=== PATIENT | male | born 1960 | race Caucasian/White ===

== ENCOUNTER 2019-10-18 05:37 | Outpatient (RCR) | payer OTHER, SELFPAY | END 2019-10-25 00:01 | LOC: ONCRAD 05:37 | PROVIDERS: Family Provider Internal Medicine; Visit Provider Internal Medicine Hematology & Oncology | DX: Z51.12 Encounter for antineoplastic immunotherapy (principal); C34.92 Malignant neoplasm of unspecified part of left bronchus or lung; C78.7 Secondary malignant neoplasm of liver and intrahepatic bile duct; C77.1 Secondary and unspecified malignant neoplasm of intrathoracic lymph nodes; C78.01 Secondary malignant neoplasm of right lung; G47.33 Obstructive sleep apnea (adult) (pediatric); J43.9 Emphysema, unspecified; I25.10 Atherosclerotic heart disease of native coronary artery without angina pectoris; K42.9 Umbilical hernia without obstruction or gangrene; F10.21 Alcohol dependence, in remission; T44.7X6A Underdosing of beta-adrenoreceptor antagonists, initial encounter; Z91.128 Patient's intentional underdosing of medication regimen for other reason; Z79.51 Long term (current) use of inhaled steroids; Z87.01 Personal history of pneumonia (recurrent); Z92.3 Personal history of irradiation | CPT/HCPCS: 36591 ×2; 80053 ×2; 84439; 84443 ×2; 85025 ×2; 96413 ×2; 99214 ×2; J1642 ×4; J7050 ×2; J9271 ×2 ==

== ENCOUNTER 2019-11-08 05:38 | Outpatient (RCR) | payer OTHER, SELFPAY ==
[2019-11-07 09:33] LABS: Basophils % 0.5 %; Eosinophils # 0.3 10^3/uL (0.0-0.8); Eosinophils % 3.9 %; Hematocrit 41.7 % (42.0-52.0); Hemoglobin 14.1 g/dL (11.7-16.6); Lymphocytes # 1.4 10^3/uL (0.8-4.8); Lymphocytes % 16.5 %; Mean Corpuscular HGB Conc 33.8 g/dL (30.0-36.0); Mean Corpuscular Hemoglobin 33.3 pg (28.0-34.0); Mean Corpuscular Volume 98.3 fL (80-94); Mean Platelet Volume 8.8 fL (7.4-10.4); Monocytes # 0.8 10^3/uL (0.2-0.9); Monocytes % 8.9 %; Neutrophils # 5.9 10^3/uL (1.8-7.7); Neutrophils % 69.4 %; Nucleated Red Blood Cells % 0 %; Platelet Count 205 10^3/cmm (130-400); Red Blood Count 4.24 10^6/uL (4.1-5.3); Red Cell Distribution Width 12.5 % (12.1-15.1); White Blood Count 8.5 10^3/uL (4.0-10.0)
[2019-11-07 09:57] LABS: Alanine Aminotransferase 14 U/L (0-41); Alkaline Phosphatase 108 IU/L (40-130); Anion Gap 15.1 (5-19); Aspartate Amino Transferase 15 U/L (0-40); Blood Urea Nitrogen 7 mg/dL (6-20); Calcium 10.2 mg/Dl (8.6-10.0); Carbon Dioxide 26 mmol/L (22-29); Chloride 98 mmol/L (98-107); Globulin 3.3 g/dL (1.3-4.6); Glomerular Filtration Rate 138.4 mL/min (90-130); Glucose 104 mg/dL (74-109); Potassium 4.1 mmol/L (3.5-5.1); Sodium 135 mmol/L (136-145); Thyroid Stimulating Hormone 5.87 uIU/mL (0.27-4.20); Total Bilirubin 0.3 mg/dL (0.15-1.2); Total Protein 7.3 g/dL (6.6-8.7)
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
== END 2019-11-08 23:59 | disposition home or self-care (01) ==
LOC: ONCMED 05:38
PROVIDERS: Internal Medicine Hematology & Oncology; Family Provider Internal Medicine; Visit Provider Nurse Practitioner
DX: Z51.12 Encounter for antineoplastic immunotherapy (principal); C78.7 Secondary malignant neoplasm of liver and intrahepatic bile duct; C78.02 Secondary malignant neoplasm of left lung; C34.81 Malignant neoplasm of overlapping sites of right bronchus and lung; D69.6 Thrombocytopenia, unspecified; G47.33 Obstructive sleep apnea (adult) (pediatric); J43.9 Emphysema, unspecified; I25.10 Atherosclerotic heart disease of native coronary artery without angina pectoris; E78.5 Hyperlipidemia, unspecified; K42.9 Umbilical hernia without obstruction or gangrene; F17.210 Nicotine dependence, cigarettes, uncomplicated; E03.8 Other specified hypothyroidism; F10.21 Alcohol dependence, in remission; Z79.51 Long term (current) use of inhaled steroids; Z79.891 Long term (current) use of opiate analgesic; Z92.3 Personal history of irradiation; Z87.01 Personal history of pneumonia (recurrent); Z92.21 Personal history of antineoplastic chemotherapy
CPT/HCPCS: 36415; 36591; 80053; 84443; 85025; 96413; 99214; J7050; J9271

== ENCOUNTER 2019-11-11 09:32 | Inpatient (IN) | payer OTHER, SELFPAY ==
[2019-11-11] VITALS (18 sets, daily range): BP systolic 101–130; BP diastolic 59–84; PULSE 78–106; RESP 16–20; TEMP 36.7–38.1; O2SAT 92–96; BMI 31.0
--- NOTE | 2019-11-11 09:41 | ED_ITS ---
Entered by Beatrice Paz, acting as scribe for HPI - Fever General: Chief Complaint: Fever Stated Complaint: Fever Time Seen by Provider: 11/11/19 09:42 Source: patient and family Mode of arrival: ambulatory Limitations: no limitations History of Present Illness: HPI Narrative: 59 yo male presents with fever and cough. per pt this started 2 days ago and worsened today. pt has had shortness of breath and cough. pt states his spouse had the flu 1 month ago. pt had a Zpac that was left over 2 months ago that he started taking 2 days ago. pt has a hx of pneumonia and lung cancer. pt states this is worsened with a cough. pt has had chest tenderness with coughing. pt denies any other symptoms at this time. MD elicited complaint: fever Pertinent past history: other (lung cancer) Onset (ago): hour(s) Context: sick contacts (spouse had flu 1 month ago), recent antibiotic use (Zpac) and on chemotherapy Exacerbating factors: nothing Relieving factors: nothing Associated symptoms: Reports chest pain, cough and short of breath; Deny back/flank pain, confusion, diarrhea, dysuria, extremity pain, headache(s), nasal congestion, nausea or vomiting Treatments prior to arrival fever: other (Zpac 2 days ago) Review of Systems Eyes: Denies: change in vision or blurry vision ENMT: Denies: throat pain, oral sores/lesions, dental pain, nasal discharge or nasal congestion Card: Reports: chest pain Resp: Denies: wheezing GI: Denies: nausea, vomiting, vomiting blood, coffee grounds in vomit, difficulty swallowing, heartburn/indigestion, diarrhea, constipation, cramping, blood in stool or black tarry stool : Denies: flank pain, difficulty urinating, painful urination, urinary frequency, urinary urgency, urinary incontinence or blood in urine Musc: Denies: neck pain, back pain, extremity pain, extremity swelling, joint pain or joint swelling Skin/Breast: Denies: rash, itching or redness Neuro: Denies: headache, numbness in extremities, weakness in extremities, changes in sensation, lack of coordination, difficulty walking, frequent falls, dizziness, vertigo or confusion Psych: Denies: anxiety, depression, loss of interest, visual hallucinations, auditory hallucinations, suicidal ideation or homicidal ideation Endo: Denies: excessive urination, excessive thirst, tired all the time or cold intolerance Ricardo/Lymph: Denies: easy bruising, easy bleeding, petechiae, enlarged lymph nodes or tender lymph nodes PFSH ED PFSH: Statuses (acute, chronic, etc) shown below reflect problem list status as previously entered and may not be historically accurate Medical History (Updated 11/12/19 @ 14:18 by Dorian Palmer DO) Anxiety (Acute) COPD (chronic obstructive pulmonary disease) (Acute) Coronary disease (Acute) Hypertension (Acute) Neuropathy, peripheral (Acute) Sleep apnea, obstructive (Acute) Squamous cell carcinoma of left lung (Acute) Thrombocytopenia (Acute) Tobacco dependency (Acute) Umbilical hernia (Acute) Surgical History (Updated 11/11/19 @ 16:44 by Davin Gu MD) History of coronary artery stent placement (Acute) Port-A-Cath in place (Acute) S/P bronchoscopy with biopsy (Acute) Family History (Updated 11/11/19 @ 16:44 by Davin Gu MD) Mother Cancer Colon cancer Social History (Updated 11/11/19 @ 16:45 by Davin Gu MD) Smoking and tobacco status: current every day smoker Alcohol intake: never Substance/Drug Use: never Physical Exam Const: COMMON NORMALS: average body habitus, oriented x3 and alert GENERAL APPEARANCE: cooperative, comfortable, well kempt and well developed NUTRITIONAL APPEARANCE: obese ORIENTATION/CONSCIOUSNESS: Yes awake, Yes oriented to person and Yes oriented to place HENMT: COMMON NORMALS: normocephalic, head/scalp atraumatic, EAC's normal, TM's normal bilaterally, external nose normal, moist oral mucous membranes and oropharynx normal HEAD & SCALP: normocephalic and atraumatic NOSE: external nose normal EXTERNAL AUDITORY CANAL: EAC's normal TYMPANIC MEMBRANE: TM's normal bilaterally MOUTH: oral and palatal mucosa normal, lip normal and tongue normal THROAT: posterior oropharynx normal and tonsils normal Eye: COMMON NORMALS: PERRL, EOMs intact bilaterally, conjunctivae normal and no scleral icterus CONJUNCTIVA: Yes conjunctivae normal PUPIL: Yes PERRL Neck/C-Spine: COMMON NORMALS: full ROM, no lymphadenopathy, supple, no meningeal signs and thyroid normal THYROID: thyroid normal and asymmetrical Lymph: LYMPHATIC: no lymphadenopathy noted Resp: COMMON NORMALS: normal respiratory effort, no retractions and no use of accessory muscles; negative for clear to auscultation bilaterally AUSCULTATION: not clear to auscultation bilaterally Cardio: COMMON NORMALS: regular rate and regular rhythm RATE: regular rate RHYTHM: regular rhythm HEART SOUNDS: no murmurs GI: COMMON NORMALS: normal to inspection, nondistended, normoactive bowel sounds, soft to palpation and no hepatosplenomegaly PALPATION: Yes soft and Yes no hepatosplenomegaly : COMMON NORMALS: Yes no CVA tenderness BLADDER/KIDNEY EXAM: Yes no CVA tenderness Back/Pelvis: COMMON NORMALS: no CVA tenderness LUMBAR SPINE/LOWER BACK: Yes normal to inspection Extremity: COMMON NORMALS: no clubbing, cyanosis or edema, no calf tenderness and no pedal edema Neuro: COMMON NORMALS: oriented x3 SENSORIUM/ORIENTATION: Yes alert, Yes oriented to person and Yes oriented to place MENINGEAL SIGNS: Yes no meningeal signs Psych: APPEARANCE: Yes well kempt Skin: COMMON NORMALS: no rashes or lesions noted and skin turgor normal GENERAL SKIN EXAM: no rashes or lesions noted and turgor normal Course ED course: I called Dr. Gu for admission left a voicemail, waiting for a call back. Cussed with Dr. Zapata will go ahead and admit this suspect patient has a postobstructive pneumonia again reviewed the case with him. Vital Signs: Vital signs: Vital Signs Temperature 98.6 F 11/12/19 12:00 Pulse Rate 76 11/12/19 12:00 Respiratory Rate 18 11/12/19 12:00 Blood Pressure 118/68 11/12/19 12:00 Pulse Oximetry 95 11/12/19 12:00 MDM - Fever Lab Data: Labs: Lab Results 11/11/19 11/11/19 11/11/19 Range/Units 09:53 09:53 09:53 WBC 14.5 H (4.0-10.0) 10^3/ uL RBC 4.37 (4.1-5.3) 10^6/u L Hgb 14.4 (11.7-16.6) g/dL Hct 42.3 (42.0-52.0) % MCV 96.8 H (80-94) fL MCH 33.0 (28.0-34.0) pg MCHC 34.0 (30.0-36.0) g/dL RDW 12.5 (12.1-15.1) % Plt Count 199 (130-400) 10^3/c mm MPV 8.9 (7.4-10.4) fL Neut % (Auto) 76.7 % Lymph % (Auto) 9.4 % Jackson % (Auto) 12.4 % Eos % (Auto) 0.4 % Baso % (Auto) 0.3 % Neut # (Auto) 11.1 H (1.8-7.7) 10^3/u L Lymph # (Auto) 1.4 (0.8-4.8) 10^3/u L Jackson # (Auto) 1.8 H (0.2-0.9) 10^3/u L Eos # (Auto) 0.1 (0.0-0.8) 10^3/u L Baso # (Auto) 0.1 (0.0-0.1) 10^3/u L Nucleated RBC % (a uto) 0 % Nucleated RBCs # 0.0 /100WBC Specimen Type Sample Site ABG pH (7.35-7.45) ABG pCO2 (35-45) mmHg ABG pO2 (80.0-100.0) mmH g ABG HCO3 (22-26) mmol/L ABG Base Excess (-2.0-2.0) mmol/ L Yovani Test Hematocrit (42-52) % Hgb O2 Saturation (95-100) % Carboxyhemoglobin (0.4-20.1) %THgb Methemoglobin (0.4-1.5) % Total Hemoglobin (14-18) g/dL O2 Delivery Device FiO2 % Log Chipper ID Sodium 134 L (136-145) mmol/L Potassium 4.3 (3.5-5.1) mmol/L Chloride 97 L (98-107) mmol/L Carbon Dioxide 22 (22-29) mmol/L Anion Gap 19.3 H (5-19) BUN 8 (6-20) mg/dL Creatinine 0.7 (0.7-1.2) mg/dL GFR Calculation 115.8 (90-130) mL/min Glucose 135 H (74-109) mg/dL Lactate (0.5-2.2) mmol/L Calcium 9.9 (8.6-10.0) mg/Dl Total Bilirubin 0.8 (0.15-1.2) mg/dL AST 14 (0-40) U/L ALT 11 (0-41) U/L Alkaline Phosphata se 96 (40-130) IU/L Troponin T Baselin e 15 (0-15) ng/mL Troponin T 120 Min [place] (0-15) ng/mL Delta Troponin T (0-10) ABS# Total Protein 7.6 (6.6-8.7) g/dL Albumin 4.2 (3.5-5.2) g/dL Globulin 3.4 (1.3-4.6) g/dL Urine Color (Yellow) Urine Appearance (CLEAR) Urine pH (5-7) Ur Specific Gravit y (1.005-1.030) Urine Protein (Negative) Urine Glucose (UA) (Normal) Urine Ketones (Negative) Urine Occult Blood (Negative) Urine Nitrate (Negative) Urine Bilirubin (NEGATIVE) Urine Urobilinogen (Negative) mg/dL Ur Leukocyte Kerline ase (Negative) Urine RBC (0-2) /hpf Urine WBC (0-5) /hpf Ur Squamous Epith Cells (0-5) Urine Bacteria (NONE) Urine Mucus Influenza Type A A g (Negative) POC Influenza B Ag (Negative) 11/11/19 11/11/19 11/11/19 Range/Units 09:58 10:02 10:12 WBC (4.0-10.0) 10^3/ uL RBC (4.1-5.3) 10^6/u L Hgb (11.7-16.6) g/dL Hct (42.0-52.0) % MCV (80-94) fL MCH (28.0-34.0) pg MCHC (30.0-36.0) g/dL RDW (12.1-15.1) % Plt Count (130-400) 10^3/c mm MPV (7.4-10.4) fL Neut % (Auto) % Lymph % (Auto) % Jackson % (Auto) % Eos % (Auto) % Baso % (Auto) % Neut # (Auto) (1.8-7.7) 10^3/u L Lymph # (Auto) (0.8-4.8) 10^3/u L Jackson # (Auto) (0.2-0.9) 10^3/u L Eos # (Auto) (0.0-0.8) 10^3/u L Baso # (Auto) (0.0-0.1) 10^3/u L Nucleated RBC % (a uto) % Nucleated RBCs # /100WBC Specimen Type Arterial Sample Site Radial, left ABG pH 7.45 (7.35-7.45) ABG pCO2 35.7 (35-45) mmHg ABG pO2 62.2 L (80.0-100.0) mmH g ABG HCO3 24.5 (22-26) mmol/L ABG Base Excess 0.8 (-2.0-2.0) mmol/ L Yovani Test Pos Hematocrit 45.7 (42-52) % Hgb O2 Saturation 91.7 L (95-100) % Carboxyhemoglobin 1.7 (0.4-20.1) %THgb Methemoglobin 0.9 (0.4-1.5) % Total Hemoglobin 14.9 (14-18) g/dL O2 Delivery Device Room air FiO2 21.0 % Log Chipper ID cak Sodium (136-145) mmol/L Potassium (3.5-5.1) mmol/L Chloride (98-107) mmol/L Carbon Dioxide (22-29) mmol/L Anion Gap (5-19) BUN (6-20) mg/dL Creatinine (0.7-1.2) mg/dL GFR Calculation (90-130) mL/min Glucose (74-109) mg/dL Lactate 1.6 (0.5-2.2) mmol/L Calcium (8.6-10.0) mg/Dl Total Bilirubin (0.15-1.2) mg/dL AST (0-40) U/L ALT (0-41) U/L Alkaline Phosphata se (40-130) IU/L Troponin T Baselin e (0-15) ng/mL Troponin T 120 Min [place] (0-15) ng/mL Delta Troponin T (0-10) ABS# Total Protein (6.6-8.7) g/dL Albumin (3.5-5.2) g/dL Globulin (1.3-4.6) g/dL Urine Color (Yellow) Urine Appearance (CLEAR) Urine pH (5-7) Ur Specific Gravit y (1.005-1.030) Urine Protein (Negative) Urine Glucose (UA) (Normal) Urine Ketones (Negative) Urine Occult Blood (Negative) Urine Nitrate (Negative) Urine Bilirubin (NEGATIVE) Urine Urobilinogen (Negative) mg/dL Ur Leukocyte Kerline ase (Negative) Urine RBC (0-2) /hpf Urine WBC (0-5) /hpf Ur Squamous Epith Cells (0-5) Urine Bacteria (NONE) Urine Mucus Influenza Type A A g Negative (Negative) POC Influenza B Ag Negative (Negative) 11/11/19 11/11/19 Range/Units 10:42 12:48 WBC (4.0-10.0) 10^3/ uL RBC (4.1-5.3) 10^6/u L Hgb (11.7-16.6) g/dL Hct (42.0-52.0) % MCV (80-94) fL MCH (28.0-34.0) pg MCHC (30.0-36.0) g/dL RDW (12.1-15.1) % Plt Count (130-400) 10^3/c mm MPV (7.4-10.4) fL Neut % (Auto) % Lymph % (Auto) % Jackson % (Auto) % Eos % (Auto) % Baso % (Auto) % Neut # (Auto) (1.8-7.7) 10^3/u L Lymph # (Auto) (0.8-4.8) 10^3/u L Jackson # (Auto) (0.2-0.9) 10^3/u L Eos # (Auto) (0.0-0.8) 10^3/u L Baso # (Auto) (0.0-0.1) 10^3/u L Nucleated RBC % (a uto) % Nucleated RBCs # /100WBC Specimen Type Sample Site ABG pH (7.35-7.45) ABG pCO2 (35-45) mmHg ABG pO2 (80.0-100.0) mmH g ABG HCO3 (22-26) mmol/L ABG Base Excess (-2.0-2.0) mmol/ L Yovani Test Hematocrit (42-52) % Hgb O2 Saturation (95-100) % Carboxyhemoglobin (0.4-20.1) %THgb Methemoglobin (0.4-1.5) % Total Hemoglobin (14-18) g/dL O2 Delivery Device FiO2 % Log Chipper ID Sodium (136-145) mmol/L Potassium (3.5-5.1) mmol/L Chloride (98-107) mmol/L Carbon Dioxide (22-29) mmol/L Anion Gap (5-19) BUN (6-20) mg/dL Creatinine (0.7-1.2) mg/dL GFR Calculation (90-130) mL/min Glucose (74-109) mg/dL Lactate (0.5-2.2) mmol/L Calcium (8.6-10.0) mg/Dl Total Bilirubin (0.15-1.2) mg/dL AST (0-40) U/L ALT (0-41) U/L Alkaline Phosphata se (40-130) IU/L Troponin T Baselin e (0-15) ng/mL Troponin T 120 Min [place] 13.41 (0-15) ng/mL Delta Troponin T -1.59 L (0-10) ABS# Total Protein (6.6-8.7) g/dL Albumin (3.5-5.2) g/dL Globulin (1.3-4.6) g/dL Urine Color Yellow (Yellow) Urine Appearance Sl hazy (CLEAR) Urine pH 6.5 (5-7) Ur Specific Gravit y 1.010 (1.005-1.030) Urine Protein Neg (Negative) Urine Glucose (UA) Norm (Normal) Urine Ketones 1+ H (Negative) Urine Occult Blood Neg (Negative) Urine Nitrate Negative (Negative) Urine Bilirubin 1+ H (NEGATIVE) Urine Urobilinogen 1 H (Negative) mg/dL Ur Leukocyte Kerline ase Negative (Negative) Urine RBC Rare (0-2) /hpf Urine WBC 5-10 H (0-5) /hpf Ur Squamous Epith Cells 0-4 H (0-5) Urine Bacteria 1+ H (NONE) Urine Mucus Trace Influenza Type A A g (Negative) POC Influenza B Ag (Negative) Imaging Data^: CXR: Radiologist's impression: [address] [address] XRay Report Signed Patient: Rayo Stokes #: [id number] : 1960cct#:[id number] Age/Sex: 59 / MADM Date: 11/11/19 Loc: ERRoom/Bed: Attending Dr: Ordering Provider/Ordering MD: Dorian Palmer DO Date of Service: 11/11/19 Procedure(s): XR chest 1V portable [id number] Accession Number(s): [id number] Report Number: [id number] WS: [id number] Portable AP upright chest, 11/11/2019 Clinical Data: dyspnea, hx of prostate ca Comparison: Portable chest, 08/02/2019. Findings: There is chronic emphysematous change. There is expansion of the left lower lobe with volume loss in the left upper lobe. There may be a left hilar mass causing postobstructive consolidation in the left upper lobe. The pulmonary vascularity is not increased. No pneumonia or pneumothorax is seen. No nodules or effusions are noted. The heart size is normal. There is a Port-A-Cath on the right ending in the superior vena cava. Monitor leads are on the chest wall. XR/XR chest 1V portable [id number] Impression: 1. Postobstructive changes in the left hilum causing volume loss in the left upper lobe which have improved slightly. 2. No change in Port-A-Cath. Dictated By:Aziza Jose MD Signed By:Aziza Jose MDSigned Date/Time:11/11/19 1012 DD/ 1007 CT Chest: Radiologist's impression: [facility] [address] [place] [address] CT Scan Report Signed Patient: Rayo Stokes #: [id number] : 1960cct#:[id number] Age/Sex: 59 / MADM Date: 11/11/19 Loc: ERRoom/Bed: Attending Dr: Ordering Provider/Ordering MD: Dorian Palmer DO Date of Service: 11/11/19 Procedure(s): CT angio chest PE protcl [id number] Accession Number(s): [id number] Report Number: [id number] WS: [id number] CTA scan of the chest with IV contrast. Additional two-dimensional coronal and sagittal reconstruction and MIP images was performed. 11/11/2019 Clinical Data: dyspnea, hx lung CA Comparison: CT chest abdomen and pelvis, 07/19/2019 DLP: 1145.[address] scans at [facility] use at least one of these dose optimization techniques: automated exposure control; mA and/or kV adjustment per patient size (includes targeted exams where dose is matched to clinical indication); or iterative reconstruction. Findings: The central pulmonary arteries and peripheral pulmonary arteries fill normally with no evidence of intraluminal filling defects. No pulmonary embolic disease is noted. There is partial collapse of left upper lobe unchanged. No left hilar masses not seen. There is a small left pleural effusion and a very small right pleural effusion. Emphysematous changes are seen throughout both lungs.. The heart size is normal with no pericardial effusion. The thoracic aorta demonstrates no abnormalities or dilatations. There is no axillary or significant mediastinal adenopathy. The thyroid gland shows normal enhancement. The trachea bifurcates into the bronchi. There is a hiatal hernia. The upper abdomen shows no abnormalities. The visualized liver, spleen, pancreas, gallbladder, adrenal glands and superior poles of the kidneys are not remarkable. The bones of the thoracic and upper lumbar spine and no metastatic lesions CT/CT angio chest PE protcl [id number] Impression: 1. Negative for pulmonary embolic disease. 2. No change in left upper lobe atelectasis with no definite left hilar mass seen. 3. Small pleural effusions. Dictated By:Aziza Jose MD Signed By:Aziza Jose MDSigned Date/Time:11/11/19 1212 Discharge Plan Discharge Patient Disposition: Admitted As Inpatient Admit Provider: Davin Gu Clinical Impression: Pneumonia involving left lung Qualifiers: Pneumonia type: due to unspecified organism Lung location: upper lobe of lung Qualified Code(s): J18.9 - Pneumonia, unspecified organism Lung cancer, upper lobe Qualifiers: Laterality: left Qualified Code(s): C34.12 - Malignant neoplasm of upper lobe, left bronchus or lung Condition: Stable Referrals: Aubrey Vieira [Family Provider] - Discharge Date/Time: 11/11/19 14:36 Coding Level of Care Code ED Shoemaking Finisher for Chg Fwd Exam Problem Focused The documentation recorded by the Jackson monte Bridget Annette, accurately reflects the service I personally performed and the decisions made by , Dorian Palmer, Nov 11, 2019 09:32
--- NOTE | 2019-11-11 09:47 | XR_ITS ---
WS: [id number] Portable AP upright chest, 11/11/2019 Clinical Data: dyspnea, hx of prostate ca Comparison: Portable chest, 08/02/2019. Findings: There is chronic emphysematous change. There is expansion of the left lower lobe with volum e loss in the left upper lobe. There may be a left hilar mass causing postobstructive consolidation i n the left upper lobe. The pulmonary vascularity is not increased. No pneumonia or pneumothorax is se en. No nodules or effusions are noted. The heart size is normal. There is a Port-A-Cath on the right ending in the superior vena cava. Monitor leads are on the chest wall. XR/XR chest 1V portable [id number] Impression: 1. Postobstructive changes in the left hilum causing volume loss in the left up per lobe which have improved slightly. 2. No change in Port-A-Cath.
[2019-11-11] MEDS: ipratropium-albuterol 3 mL Neb INHALATION ×3 (10:03→20:03)
[2019-11-11 10:07] LABS: Basophils # 0.1 10^3/uL (0.0-0.1); Basophils % 0.3 %; Eosinophils # 0.1 10^3/uL (0.0-0.8); Eosinophils % 0.4 %; Hematocrit 42.3 % (42.0-52.0); Hemoglobin 14.4 g/dL (11.7-16.6); Lymphocytes # 1.4 10^3/uL (0.8-4.8); Lymphocytes % 9.4 %; Mean Corpuscular Volume 96.8 fL (80-94); Mean Platelet Volume 8.9 fL (7.4-10.4); Monocytes # 1.8 10^3/uL (0.2-0.9); Monocytes % 12.4 %; Neutrophils # 11.1 10^3/uL (1.8-7.7); Neutrophils % 76.7 %; Nucleated Red Blood Cells % 0 %; Platelet Count 199 10^3/cmm (130-400); Red Blood Count 4.37 10^6/uL (4.1-5.3); Red Cell Distribution Width 12.5 % (12.1-15.1); White Blood Count 14.5 10^3/uL (4.0-10.0)
[2019-11-11] MEDS: sodium chloride 0.9% 1,000 ML 999 ML IV (10:07)
[2019-11-11 10:13] LABS: ABG PCO2 35.7 mmHg (35-45); ABG PH Result 7.45 (7.35-7.45); Arterial Blood Gas Hematocrit 45.7 % (42-52); Base Excess ABG 0.8 mmol/L (-2.0-2.0); Blood Gas Allen Test Pos; Blood Gas Sample Site Radial, left; Blood Gas Sample Type Arterial; Carboxyhemoglobin 1.7 %THgb (0.4-20.1); HCO3 ABG 24.5 mmol/L (22-26); HGB O2 Sat 91.7 % (95-100); Methemoglobin 0.9 % (0.4-1.5); PO2 ABG 62.2 mmHg (80.0-100.0); Total Hemoglobin 14.9 g/dL (14-18)
[2019-11-11 10:21] LABS: Lactate (Lactic Acid level) 1.6 mmol/L (0.5-2.2)
[2019-11-11 10:21] LABS: Alanine Aminotransferase 11 U/L (0-41); Albumin Level 4.2 g/dL (3.5-5.2); Alkaline Phosphatase 96 IU/L (40-130); Anion Gap 19.3 (5-19); Blood Urea Nitrogen 8 mg/dL (6-20); Calcium 9.9 mg/Dl (8.6-10.0); Carbon Dioxide 22 mmol/L (22-29); Chloride 97 mmol/L (98-107); Globulin 3.4 g/dL (1.3-4.6); Glomerular Filtration Rate 115.8 mL/min (90-130); Glucose 135 mg/dL (74-109); Potassium 4.3 mmol/L (3.5-5.1); Sodium 134 mmol/L (136-145); Total Bilirubin 0.8 mg/dL (0.15-1.2); Total Protein 7.6 g/dL (6.6-8.7)
[2019-11-11] MEDS: piperacillin-tazobactam 3.375 GM in sodium chloride 0.9% (plus) 50 ML IV ×2 (10:23→17:53)
[2019-11-11 10:24] LABS: Aspartate Amino Transferase 14 U/L (0-40)
[2019-11-11 10:42] LABS: Oxygen Device ROOM AIR
[2019-11-11 10:59] LABS: Add Urine Microscopic? YES; Bilirubin Urine 1+ (NEGATIVE); Blood Urine Neg (Negative); Glucose Urine UA Norm (Normal); Ketones Urine 1+ (Negative); Leukocyte Esterase Urine Negative (Negative); Nitrate Urine Negative (Negative); Protein Urine Neg (Negative); Urine Appearance SL Hazy (CLEAR); Urine Color Yellow (Yellow); Urobilinogen Urine 1 mg/dL (Negative); pH Urine 6.5 (5-7)
--- NOTE | 2019-11-11 11:07 | ECG_ITS ---
Measurements Intervals [place] Rate: 80 P: 79 MD: 162 QRS: 96 QRSD: 113 T: 81 QT: 346 QTc: 401 SINUS RHYTHM BORDERLINE RIGHT AXIS DEVIATION [QRS AXIS > 90] POSSIBLE INFERIOR MYOCARDIAL INFARCTION , OF INDETERMINATE AGE [30 ms Q WAVE IN II/aVF] Compared to ECG 08/02/2019 08:09:33 No significant changes Electronically Signed On 11-12-2019 11:23:50 PAVING INSPECTOR by Marco Gerardo M.D. [email or web address]
[2019-11-11] MEDS: vancomycin 1,000 MG in sodium chloride 0.9% 250 ML 250 MG IV (11:12)
[2019-11-11 11:13] LABS: Influenza A by IFA Negative (Negative)
[2019-11-11 11:14] LABS: Influenza B by IFA Negative (Negative)
--- NOTE | 2019-11-11 11:16 | CT_ITS ---
WS: [id number] CTA scan of the chest with IV contrast. Additional two-dimensional coronal and sagittal reconstructio n and MIP images was performed. 11/11/2019 Clinical Data: dyspnea, hx lung CA Comparison: CT chest abdomen and pelvis, 07/19/2019 DLP: 1145.[address] scans at [facility] use at least one of these dose optimization techniques: automat ed exposure control; mA and/or kV adjustment per patient size (includes targeted exams where dose is matched to clinical indication); or iterative reconstruction. Findings: The central pulmonary arteries and peripheral pulmonary arteries fill normally with no evidence of in traluminal filling defects. No pulmonary embolic disease is noted. There is partial collapse of left upper lobe unchanged. No left hilar masses not seen. There is a sma ll left pleural effusion and a very small right pleural effusion. Emphysematous changes are seen thro ughout both lungs.. The heart size is normal with no pericardial effusion. The thoracic aorta demons trates no abnormalities or dilatations. There is no axillary or significant mediastinal adenopathy. T he thyroid gland shows normal enhancement. The trachea bifurcates into the bronchi. There is a hiatal hernia. The upper abdomen shows no abnormalities. The visualized liver, spleen, pancreas, gallbladder, adrena l glands and superior poles of the kidneys are not remarkable. The bones of the thoracic and upper lumbar spine and no metastatic lesions CT/CT angio chest PE protcl [id number] Impression: 1. Negative for pulmonary embolic disease. 2. No change in left upper lobe atelectasis with no definite left hilar mass se en. 3. Small pleural effusions.
[2019-11-11 11:17] LABS: Add Urine Culture? No; Bacteria Urine 1+; Mucus Urine TRACE; RBC Urine RARE /hpf (0-2); Squamous Epithelial Cell Urine 0-4 (0-5)
[2019-11-11] MEDS: iohexol 350 mg/mL 100 mL Btl IV (11:42)
[2019-11-11] MEDS: morphine 4 mg/mL SDV 1 mL 2 MG IVP ×3 (11:55→21:03)
--- NOTE | 2019-11-11 12:38 | ECG_ITS ---
Measurements Intervals [place] Rate: 81 P: 76 PA: 174 QRS: 92 QRSD: 109 T: 73 QT: 329 QTc: 382 SINUS RHYTHM BORDERLINE RIGHT AXIS DEVIATION [QRS AXIS > 90] Compared to ECG 08/02/2019 08:09:33 Myocardial infarct finding no longer present Electronically Signed On 11-12-2019 11:26:00 KNOCKDOWN WORKER by Marco Gerardo M.D. [email or web address]
[2019-11-11 13:20] LABS: Troponin(5th) Baseline 15 ng/mL (0-15)
[2019-11-11 13:23] LABS: Troponin 5 2HR 13.41 ng/mL (0-15)
[2019-11-11 13:25] LABS: Troponin 5 2HR Delta -1.59 ABS# (0-10)
[2019-11-11] MEDS: morphine 4 mg/mL SDV 1 mL IVP (13:42)
--- NOTE | 2019-11-11 14:38 | ECG_ITS ---
Measurements Intervals [place] Rate: 102 P: 79 VT: 162 QRS: 97 QRSD: 105 T: 66 QT: 317 QTc: 415 SINUS TACHYCARDIA BORDERLINE RIGHT AXIS DEVIATION [QRS AXIS > 90] POSSIBLE INFERIOR MYOCARDIAL INFARCTION , OF INDETERMINATE AGE [30 ms Q WAVE IN II/aVF] Compared to ECG 08/02/2019 08:09:33 Sinus rhythm no longer present Myocardial infarct finding still present Electronically Signed On 11-12-2019 11:30:40 POWERHOUSE ELECTRICIAN APPRENTICE by Marco Gerardo M.D. [email or web address]
[2019-11-11] MEDS: sodium chloride 0.9% 1,000 ML 100 ML IV (15:56)
--- NOTE | 2019-11-11 16:00 | PM.HP ---
Providers/Chief Complaint Admitting Physician: Davin Gu MD Chief Complaint: Fever;Chest Pain;Dyspnea History of Present Illness Rayo Stokes is a 59 year old male with fever. He reports left-sided chest discomfort and fever started yesterday. He has been more short of breath than usual. Cough is nonproductive. He has had some posttussive emesis. He reports symptoms like this have occurred before when he had pneumonia. Left chest hurts when he coughs, and moves. No diarrhea. No hemoptysis. Has past history of hemoptysis and is not taking aspirin currently secondary to this. Review of Systems General: Reports: 10 or more systems reviewed and unremarkable except in HPI and below Const: Reports: fever and body aches Eyes: Denies: change in vision ENMT: Denies: throat pain Card: Reports: chest pain Resp: Reports: shortness of breath; Denies: coughing up blood GI: Denies: abdominal pain : Denies: difficulty urinating Musc: Denies: neck pain Skin/Breast: Denies: rash Neuro: Denies: headache Psych: Reports: depression Endo: Denies: excessive urination Ricardo/Lymph: Denies: easy bruising All/Imm: Denies: hives Medications/Allergies Home Medications Medication Instructions Recorded Confirmed Last Taken Type albuterol sulfate 1 puff INHALATION QID PRN 11/11/19 11/11/19 Unknown History atorvastatin 20 mg PO DAILY 11/11/19 11/11/19 11/10/19 History azithromycin 250 mg PO DAILY 11/11/19 11/11/19 11/11/19 History budesonide-formoterol [Symbicort] 2 puff INHALATION BID 11/11/19 11/11/19 11/11/19 History gabapentin 300 mg PO BID 11/11/19 11/11/19 11/11/19 History hydrocodone-acetaminophen 1 tab PO BID PRN 11/11/19 11/11/19 11/10/19 History lorazepam 1 mg PO DAILY PRN 11/11/19 11/11/19 Unknown History metoprolol tartrate 12.5 mg PO BID 11/11/19 11/11/19 11/11/19 History tiotropium bromide [Spiriva with 1 cap INHALATION DAILY 11/11/19 11/11/19 Unknown History HandiHaler] Allergies Allergy/AdvReac Type Severity Reaction Status Date / Time No Known Allergies Allergy Verified 11/11/19 09:43 PFSH Acute PFSH: Statuses (acute, chronic, etc) shown below reflect problem list status as previously entered and may not be historically accurate Medical History (Updated 11/11/19 @ 16:49 by Davin Gu MD) Anxiety (Acute) COPD (chronic obstructive pulmonary disease) (Acute) Coronary disease (Acute) Hypertension (Acute) Neuropathy, peripheral (Acute) Sleep apnea, obstructive (Acute) Squamous cell carcinoma of left lung (Acute) Thrombocytopenia (Acute) Tobacco dependency (Acute) Umbilical hernia (Acute) Surgical History (Updated 11/11/19 @ 16:44 by Davin Gu MD) History of coronary artery stent placement (Acute) Port-A-Cath in place (Acute) S/P bronchoscopy with biopsy (Acute) Family History (Updated 11/11/19 @ 16:44 by Davin Gu MD) Mother Cancer Colon cancer Social History (Updated 11/11/19 @ 16:45 by Davin Gu MD) Smoking and tobacco status: current every day smoker Alcohol intake: never Substance/Drug Use: never Vitals/I&O/Wt Last Vital Signs Temp 100.6 F H 11/11/19 15:19 Pulse 94 11/11/19 15:34 Resp 20 H 11/11/19 15:34 BP 128/69 11/11/19 15:19 Pulse Ox 95 11/11/19 15:34 11/11/19 11/11/19 11/11/19 06:59 14:59 22:59 Intake Total 1300 / 1300 Balance 1300 / 1300 Weight last 48 hrs Weight 103.873 kg Physical Exam Narrative: EXAM NARRATIVE: General exam is a white male in no apparent distress HEENT: Pupils equally round. Oropharynx clear. Neck is supple no lymphadenopathy or thyromegaly Cardiovascular regular rate and rhythm without murmur. Port is noted right chest Lungs diminished breath sounds bilaterally. A few rhonchi on the left. Occasional expiratory wheeze on both sides. Abdomen is soft nontender with positive bowel sounds. No obvious organomegaly. Umbilical hernia is noted. Nontender. is deferred Extremities no cyanosis clubbing or edema Skin no rash Neuro no focal deficits Data : 11/11/19 09:53 11/11/19 09:53 Micro: Microbiology 11/11/19 09:53 Blood Culture - Preliminary Blood SPECIMEN COLLECTED 11/11/19 09:58 Blood Culture - Preliminary Blood SPECIMEN COLLECTED Other data: EKG with borderline right axis deviation, inferior Q waves. Chest x-ray postobstructive changes left hilum, CTA chest no pulmonary embolism left upper lobe atelectasis, small effusion A&P Assessment and plan (1) Pneumonia involving left lung: Placed on vancomycin and Zosyn. Postobstructive. 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 He is still undergoing treatment by oncology with immune therapy Status: Acute Code(s): J18.9 - Pneumonia, unspecified organism (2) Respiratory failure: Secondary to above. Continue oxygen. Acute hypoxic Status: Acute Code(s): J96.90 - Respiratory failure, unspecified, unspecified whether with hypoxia or hypercapnia (3) UTI (urinary tract infection): Probable UTI based on urinalysis. Patient with no significant symptoms. Antibiotics for pneumonia should be sufficient, awaiting culture Status: Acute Code(s): N39.0 - Urinary tract infection, site not specified (4) COPD exacerbation: Acute COPD exacerbation. Will initiate prednisone, pulmonary toilet Status: Acute Code(s): J44.1 - Chronic obstructive pulmonary disease with (acute) exacerbation Additional A&P Information Squamous cell carcinoma of the lung stage IV with history of postobstructive changes and multiple procedures done before. 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
[2019-11-11] MEDS: acetaminophen 325 mg Tablet 650 MG PO (16:16)
[2019-11-11 16:23] LABS: Troponin 5 6HR 12.34 ng/L (0-15)
[2019-11-11 16:28] LABS: Troponin 5 6HR Delta -2.66 ng/L (0-12)
[2019-11-11] MEDS: enoxaparin 40 mg/0.4 mL Syringe SUBCUT (17:52)
[2019-11-11] MEDS: gabapentin 300 mg Capsule PO (17:52)
[2019-11-11] MEDS: metoprolol tartrate 25 mg Tablet 12.5 MG PO (17:53)
[2019-11-11] MEDS: predniSONE 20 mg Tablet 40 MG PO (17:53)
--- NOTE | 2019-11-11 18:38 | ECG_ITS ---
Measurements Intervals [place] Rate: 80 P: 75 AR: 170 QRS: 93 QRSD: 117 T: 78 QT: 346 QTc: 401 SINUS RHYTHM BORDERLINE RIGHT AXIS DEVIATION [QRS AXIS > 90] PROBABLE INFERIOR MYOCARDIAL INFARCTION , OF INDETERMINATE AGE WITH POSTERIOR EXTENSION [35 ms Q WAVE IN II/aVFPROMINENT R WAV Compared to ECG 08/02/2019 08:09:33 No significant changes Electronically Signed On 11-12-2019 11:29:53 HOSPITAL SOCIAL WORKER by Marco Gerardo M.D. [id number]
[2019-11-11] MEDS: HYDROcodone-acetaminophen 5-325 mg Tablet 1 TAB PO (19:27)
[2019-11-12] VITALS (19 sets, daily range): BP systolic 98–150; BP diastolic 58–76; PULSE 75–93; RESP 16–21; TEMP 36.6–37; O2SAT 84–96; BMI 31.1
[2019-11-12] MEDS: ipratropium-albuterol 3 mL Neb INHALATION ×5 (00:26→19:53)
[2019-11-12] MEDS: morphine 4 mg/mL SDV 1 mL 2 MG IVP ×3 (02:33→17:56)
[2019-11-12] MEDS: piperacillin-tazobactam 3.375 GM in sodium chloride 0.9% (plus) 50 ML IV ×3 (02:48→17:04)
[2019-11-12] MEDS: sodium chloride 0.9% 1,000 ML 75 ML IV (05:14)
[2019-11-12 06:05] LABS: Basophils % 0.1 %; Hematocrit 34.6 % (42.0-52.0); Hemoglobin 11.5 g/dL (11.7-16.6); Lymphocytes # 0.9 10^3/uL (0.8-4.8); Lymphocytes % 6.9 %; Mean Corpuscular HGB Conc 33.2 g/dL (30.0-36.0); Mean Corpuscular Hemoglobin 31.9 pg (28.0-34.0); Mean Corpuscular Volume 95.8 fL (80-94); Mean Platelet Volume 9.1 fL (7.4-10.4); Monocytes % 8.2 %; Neutrophils # 10.7 10^3/uL (1.8-7.7); Neutrophils % 84.3 %; Nucleated Red Blood Cells % 0 %; Platelet Count 183 10^3/cmm (130-400); Red Blood Count 3.61 10^6/uL (4.1-5.3); Red Cell Distribution Width 12.2 % (12.1-15.1); White Blood Count 12.6 10^3/uL (4.0-10.0)
[2019-11-12 06:30] LABS: Alanine Aminotransferase 9 U/L (0-41); Albumin Level 3.4 g/dL (3.5-5.2); Alkaline Phosphatase 77 IU/L (40-130); Anion Gap 14.2 (5-19); Aspartate Amino Transferase 9 U/L (0-40); Blood Urea Nitrogen 8 mg/dL (6-20); Calcium 9.2 mg/Dl (8.6-10.0); Carbon Dioxide 23 mmol/L (22-29); Chloride 101 mmol/L (98-107); Glomerular Filtration Rate 138.4 mL/min (90-130); Glucose 152 mg/dL (74-109); Potassium 4.2 mmol/L (3.5-5.1); Sodium 134 mmol/L (136-145); Total Bilirubin 0.4 mg/dL (0.15-1.2); Total Protein 6.4 g/dL (6.6-8.7)
[2019-11-12] MEDS: gabapentin 300 mg Capsule PO ×2 (08:27→17:04)
[2019-11-12] MEDS: atorvastatin 40 mg Tablet 20 MG PO (08:27)
[2019-11-12] MEDS: predniSONE 20 mg Tablet 40 MG PO (08:28)
[2019-11-12] MEDS: metoprolol tartrate 25 mg Tablet 12.5 MG PO ×2 (08:28→17:04)
[2019-11-12] MEDS: HYDROcodone-acetaminophen 5-325 mg Tablet 1 TAB PO (08:31)
--- NOTE | 2019-11-12 11:51 | P.PN_ITS ---
Subjective Subjective: Interval history: Rayo reports he feels slightly better. Still somewhat short of breath. Still having left-sided chest pain with coughing and some movement. Medications: Reviewed: Yes Vitals/I&O/Wt Last Vital Signs Temp 98.4 F 11/12/19 08:00 Pulse 92 11/12/19 08:00 Resp 18 11/12/19 10:57 BP 150/76 11/12/19 08:00 Pulse Ox 94 11/12/19 08:00 11/11/19 11/12/19 11/12/19 22:59 06:59 14:59 Intake Total 530 / 1830 1530.000 / 3360.000 120 / 120 Output Total 500 / 500 1200 / 1700 400 / 400 Balance 30 / 1330 330.000 / 1660.000 -280 / -280 Weight last 48 hrs Weight 104.326 kg Weight 103.192 kg Weight 103.873 kg Physical Exam Narrative: EXAM NARRATIVE: General exam is a white male in no apparent distress Cardiovascular regular rate and rhythm without murmur. Port is noted right chest Lungs relatively clear bilaterally with diminished breath sounds bilaterally. Abdomen is soft nontender with positive bowel sounds. No obvious organomegaly. Extremities no cyanosis clubbing or edema Data : 11/12/19 05:36 11/12/19 05:36 Micro: Microbiology 11/11/19 09:53 Blood Culture - Preliminary Blood NEGATIVE TO DATE 11/11/19 09:58 Blood Culture - Preliminary Blood NEGATIVE TO DATE A&P Assessment and plan (1) Pneumonia involving left lung: Placed on vancomycin and Zosyn. Postobstructive. 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 He is still undergoing treatment by oncology with immune therapy. He seems somewhat improved today. Status: Acute Code(s): J18.9 - Pneumonia, unspecified organism (2) Respiratory failure: Secondary to above. Continue oxygen. Acute hypoxic. Improving Status: Acute Code(s): J96.90 - Respiratory failure, unspecified, unspecified whether with hypoxia or hypercapnia (3) UTI (urinary tract infection): Probable UTI based on urinalysis. Patient with no significant symptoms. Antibiotics for pneumonia should be sufficient, awaiting culture Status: Acute Code(s): N39.0 - Urinary tract infection, site not specified (4) COPD exacerbation: Acute COPD exacerbation. Continue prednisone, nebs. Overall improving Status: Acute Code(s): J44.1 - Chronic obstructive pulmonary disease with (acute) exacerbation Additional A&P Information Squamous cell carcinoma of the lung stage IV with history of postobstructive changes and multiple procedures done before. Not candidate for stenting at previous evaluation Peripheral neuropathy secondary to chemotherapy Anxiety disorder Hypertension Coronary artery disease History of thrombocytopenia Ongoing tobacco dependency Obstructive sleep apnea Umbilical hernia DVT prophylaxis with Lovenox No need for laboratory tomorrow Discontinue IV fluids. He is well-hydrated at this time. Attestations Medical Necessity Statement*: Needs continued hospital stay for IV antibiotics secondary to postobstructive pneumonia in this lung cancer patient. 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
[2019-11-12] MEDS: enoxaparin 40 mg/0.4 mL Syringe SUBCUT (17:04)
[2019-11-12] MEDS: LORazepam 1 mg Tablet PO (22:52)
[2019-11-13] VITALS (17 sets, daily range): BP systolic 100–128; BP diastolic 62–78; PULSE 71–107; RESP 16–28; TEMP 36.6–37.4; O2SAT 91–96
[2019-11-13] MEDS: HYDROcodone-acetaminophen 5-325 mg Tablet 1 TAB PO ×2 (00:39→10:04)
[2019-11-13] MEDS: piperacillin-tazobactam 3.375 GM in sodium chloride 0.9% (plus) 50 ML IV ×3 (01:26→23:08)
[2019-11-13] MEDS: ipratropium-albuterol 3 mL Neb INHALATION ×3 (07:55→16:23)
[2019-11-13] MEDS: atorvastatin 40 mg Tablet 20 MG PO (08:31)
[2019-11-13] MEDS: gabapentin 300 mg Capsule PO ×2 (08:31→17:23)
[2019-11-13] MEDS: predniSONE 20 mg Tablet 40 MG PO (08:31)
[2019-11-13] MEDS: metoprolol tartrate 25 mg Tablet 12.5 MG PO ×2 (08:31→17:23)
[2019-11-13] MEDS: morphine 4 mg/mL SDV 1 mL 2 MG IVP ×2 (11:42→18:40)
--- NOTE | 2019-11-13 15:46 | P.PN_ITS ---
Subjective Subjective: Interval history: Rayo reports he is doing okay. He is still having some chest pain. Still pretty short of breath. Coughing quite a bit. Medications: Reviewed: Yes Vitals/I&O/Wt Last Vital Signs Temp 98.0 F 11/13/19 11:31 Pulse 96 11/13/19 11:32 Resp 18 11/13/19 11:42 BP 107/68 11/13/19 11:31 Pulse Ox 91 11/13/19 11:31 11/13/19 11/13/19 11/13/19 06:59 14:59 22:59 Intake Total 480 / 2270 560 / 560 Balance 480 / 870 560 / 560 Weight last 48 hrs Weight 104.44 kg Weight 104.44 kg Weight 104.326 kg Weight 103.192 kg Physical Exam Narrative: EXAM NARRATIVE: General exam no apparent distress Cardiovascular regular rate and rhythm without murmur Lungs diminished breath sounds bilaterally. A few wheezes Abdomen is soft with positive bowel sounds Extremities no cyanosis clubbing or edema Data : 11/12/19 05:36 11/12/19 05:36 Micro: Microbiology 11/11/19 09:53 Blood Culture - Preliminary Blood NEGATIVE TO DATE 11/11/19 09:58 Blood Culture - Preliminary Blood NEGATIVE TO DATE A&P Assessment and plan (1) Pneumonia involving left lung: Placed on vancomycin and Zosyn. Postobstructive. 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 He is still undergoing treatment by oncology with immune therapy. Slow improvement. Probably will be ready for discharge tomorrow. De-escalate antibiotics today by discontinuing vancomycin Status: Acute Qualifiers: Lung location: upper lobe of lung Pneumonia type: due to unspecified organism Qualified Code(s): J18.9 - Pneumonia, unspecified organism Code(s): J18.9 - Pneumonia, unspecified organism (2) Respiratory failure: Secondary to above. Continue oxygen. Acute hypoxic. Improving Status: Acute Code(s): J96.90 - Respiratory failure, unspecified, unspecified whether with hypoxia or hypercapnia (3) UTI (urinary tract infection): Probable UTI based on urinalysis. Patient with no significant symptoms. Antibiotics for pneumonia should be sufficient, awaiting culture Status: Acute Code(s): N39.0 - Urinary tract infection, site not specified (4) COPD exacerbation: Acute COPD exacerbation. Continue prednisone, nebs. Overall improving Status: Acute Code(s): J44.1 - Chronic obstructive pulmonary disease with (acute) exacerbation Additional A&P Information Squamous cell carcinoma of the lung stage IV with history of postobstructive changes and multiple procedures done before. Not candidate for stenting at previous evaluation Peripheral neuropathy secondary to chemotherapy Anxiety disorder Hypertension Coronary artery disease History of thrombocytopenia Ongoing tobacco dependency Obstructive sleep apnea Umbilical hernia DVT prophylaxis with Lovenox Check laboratory tomorrow Discontinue IV fluids. He is well-hydrated at this time. 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
[2019-11-13] MEDS: enoxaparin 40 mg/0.4 mL Syringe SUBCUT (17:23)
--- NOTE | 2019-11-13 19:58 | PC.RESP ---
PT STATED HE DID NOT WANT BREATHING TX AT THIS TIME AND WANTED TO SLEEP TONIGHT SO NOT TO WAKE HIM UP TONIGHT FOR TX
--- NOTE | 2019-11-13 23:51 | PC.RESP ---
pt sleeping no respiratory distress noted at this time. pt stated earlier he did not want woken up in the night for tx.
[2019-11-14] VITALS (15 sets, daily range): BP systolic 90–122; BP diastolic 46–75; PULSE 70–84; RESP 16–20; TEMP 36.6–36.8; O2SAT 90–95
--- NOTE | 2019-11-14 03:22 | PC.RESP ---
pt sleeping no respiratory distress noted at this time. pt stated earliler he did not want woken up for tx delia
[2019-11-14 05:16] LABS: Basophils % 0.2 %; Eosinophils % 0.1 %; Hemoglobin 11.1 g/dL (11.7-16.6); Lymphocytes # 1.2 10^3/uL (0.8-4.8); Lymphocytes % 13.6 %; Mean Corpuscular HGB Conc 33.6 g/dL (30.0-36.0); Mean Corpuscular Hemoglobin 31.8 pg (28.0-34.0); Mean Corpuscular Volume 94.6 fL (80-94); Monocytes # 0.9 10^3/uL (0.2-0.9); Monocytes % 10.1 %; Neutrophils # 6.9 10^3/uL (1.8-7.7); Neutrophils % 75.5 %; Nucleated Red Blood Cells % 0 %; Platelet Count 206 10^3/cmm (130-400); Red Blood Count 3.49 10^6/uL (4.1-5.3); Red Cell Distribution Width 12.1 % (12.1-15.1); White Blood Count 9.2 10^3/uL (4.0-10.0)
[2019-11-14 05:38] LABS: Anion Gap 15.7 (5-19); Blood Urea Nitrogen 9 mg/dL (6-20); Calcium 9.3 mg/Dl (8.6-10.0); Carbon Dioxide 26 mmol/L (22-29); Chloride 101 mmol/L (98-107); Glomerular Filtration Rate 115.8 mL/min (90-130); Glucose 110 mg/dL (74-109); Potassium 3.7 mmol/L (3.5-5.1); Sodium 139 mmol/L (136-145)
[2019-11-14] MEDS: ipratropium-albuterol 3 mL Neb INHALATION ×6 (07:44→23:02)
[2019-11-14] MEDS: predniSONE 20 mg Tablet 40 MG PO (08:49)
[2019-11-14] MEDS: metoprolol tartrate 25 mg Tablet 12.5 MG PO ×2 (08:49→17:27)
[2019-11-14] MEDS: gabapentin 300 mg Capsule PO ×2 (08:50→17:27)
[2019-11-14] MEDS: piperacillin-tazobactam 3.375 GM in sodium chloride 0.9% (plus) 50 ML IV ×2 (08:50→17:26)
[2019-11-14] MEDS: atorvastatin 40 mg Tablet 20 MG PO (08:50)
[2019-11-14] MEDS: HYDROcodone-acetaminophen 5-325 mg Tablet 1 TAB PO ×2 (08:54→17:36)
[2019-11-14] MEDS: morphine 4 mg/mL SDV 1 mL 2 MG IVP ×2 (09:31→18:23)
[2019-11-14] MEDS: enoxaparin 40 mg/0.4 mL Syringe SUBCUT (17:27)
--- NOTE | 2019-11-14 19:48 | PM.PN ---
Subjective Subjective: Interval history: This morning patient reports continued shortness of breath with exertion, no fevers, no chills, no chest pain, fatigue, malaise, no lightheadedness, no dizziness Vitals/I&O/Wt Last Vital Signs Temp 98.0 F 11/14/19 15:18 Pulse 73 11/14/19 19:31 Resp 20 H 11/14/19 19:31 BP 121/46 11/14/19 15:18 Pulse Ox 94 11/14/19 19:31 11/14/19 11/14/19 11/14/19 06:59 14:59 22:59 Intake Total 350 / 1560 410 / 410 Output Total 920 / 2420 300 / 300 Balance -570 / -860 110 / 110 Weight last 48 hrs Weight 104.326 kg Weight 104.44 kg Weight 104.44 kg Physical Exam Const: COMMON NORMALS: no apparent distress and oriented x3 HENMT: COMMON NORMALS: normocephalic HEAD & SCALP: normocephalic Neck/C-Spine: COMMON NORMALS: no JVD Resp: COMMON NORMALS: normal respiratory effort, no retractions and no use of accessory muscles EFFORT & INSPECTION: Yes audible wheezes Cardio: COMMON NORMALS: no JVD, regular rate, regular rhythm, S1 normal heart sound and S2 normal heart sound RATE: regular rate RHYTHM: regular rhythm HEART SOUNDS: S1 normal and S2 normal GI: COMMON NORMALS: normal to inspection, nondistended, normoactive bowel sounds, soft to palpation, non-tender, no hepatosplenomegaly, no masses and no bruits PALPATION: Yes soft and Yes no hepatosplenomegaly Extremity: COMMON NORMALS: normal capillary refill, no clubbing, cyanosis or edema, no calf tenderness and no pedal edema Neuro: COMMON NORMALS: oriented x3 Psych: COMMON NORMALS: mental status grossly normal Data : 11/14/19 04:36 11/14/19 04:36 A&P Assessment and plan (1) Pneumonia involving left lung: -Likely postobstructive pneumonia secondary to 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 Continue oxygen. Status: Acute Code(s): J96.90 - Respiratory failure, unspecified, unspecified whether with hypoxia or hypercapnia (3) UTI (urinary tract infection): Probable UTI based on urinalysis. Patient with no significant symptoms. Antibiotics for pneumonia should be sufficient, awaiting culture Status: Acute Code(s): N39.0 - Urinary tract infection, site not specified (4) COPD exacerbation: Acute COPD exacerbation. Continue prednisone, nebs. Overall improving Status: Acute Code(s): J44.1 - Chronic obstructive pulmonary disease with (acute) exacerbation Additional A&P Information Squamous cell carcinoma of the lung stage IV with history of postobstructive changes and multiple procedures done before. Not candidate for stenting at previous evaluation Peripheral neuropathy secondary to chemotherapy Anxiety disorder Hypertension Coronary artery disease History of thrombocytopenia Ongoing tobacco dependency Obstructive sleep apnea Umbilical hernia DVT prophylaxis with Lovenox Check laboratory tomorrow Discontinue IV fluids. He is well-hydrated at this time. Attestations Medical Necessity Statement*: Patient requires continued hospitalization due to pneumonia Coding Level of Care Code Acute Crm Specialist for [facility] Diagnoses Pneumonia involving left lung J18.9 Lung location: upper lobe of lung Pneumonia type: due to unspecified organism Respiratory failure J96.90 UTI (urinary tract infection) N39.0 COPD exacerbation J44.1
[2019-11-15] VITALS (12 sets, daily range): BP systolic 102–119; BP diastolic 68–74; PULSE 59–88; RESP 18–20; TEMP 36.5–36.8; O2SAT 87–97
[2019-11-15] MEDS: piperacillin-tazobactam 3.375 GM in sodium chloride 0.9% (plus) 50 ML IV ×2 (02:30→08:53)
[2019-11-15] MEDS: ipratropium-albuterol 3 mL Neb INHALATION ×3 (03:21→12:17)
[2019-11-15 04:56] LABS: Basophils % 0.1 %; Eosinophils % 0.1 %; Hematocrit 33.8 % (42.0-52.0); Hemoglobin 11.5 g/dL (11.7-16.6); Lymphocytes # 1.4 10^3/uL (0.8-4.8); Lymphocytes % 16.1 %; Mean Corpuscular Hemoglobin 31.9 pg (28.0-34.0); Mean Corpuscular Volume 93.9 fL (80-94); Monocytes # 0.8 10^3/uL (0.2-0.9); Monocytes % 9.5 %; Neutrophils # 6.4 10^3/uL (1.8-7.7); Neutrophils % 73.6 %; Nucleated Red Blood Cells % 0 %; Platelet Count 212 10^3/cmm (130-400); Red Cell Distribution Width 12.1 % (12.1-15.1); White Blood Count 8.6 10^3/uL (4.0-10.0)
[2019-11-15 05:24] LABS: Procalcitonin 0.05 ng/mL (0-0.8)
[2019-11-15 05:38] LABS: Alanine Aminotransferase 80 U/L (0-41); Albumin Level 3.1 g/dL (3.5-5.2); Alkaline Phosphatase 80 IU/L (40-130); Anion Gap 17.8 (5-19); Aspartate Amino Transferase 39 U/L (0-40); Blood Urea Nitrogen 7 mg/dL (6-20); Calcium 9.9 mg/Dl (8.6-10.0); Carbon Dioxide 23 mmol/L (22-29); Chloride 101 mmol/L (98-107); Globulin 3.8 g/dL (1.3-4.6); Glomerular Filtration Rate 138.4 mL/min (90-130); Glucose 108 mg/dL (74-109); Magnesium 1.9 mg/dL (1.7-2.3); Phosphorus 3.3 mg/dL (2.5-4.5); Potassium 3.8 mmol/L (3.5-5.1); Sodium 138 mmol/L (136-145); Total Bilirubin 0.3 mg/dL (0.15-1.2); Total Protein 6.9 g/dL (6.6-8.7)
[2019-11-15] MEDS: metoprolol tartrate 25 mg Tablet 12.5 MG PO (08:51)
[2019-11-15] MEDS: gabapentin 300 mg Capsule PO (08:51)
[2019-11-15] MEDS: HYDROcodone-acetaminophen 5-325 mg Tablet 1 TAB PO (08:52)
[2019-11-15] MEDS: predniSONE 20 mg Tablet 40 MG PO (08:52)
[2019-11-15] MEDS: atorvastatin 40 mg Tablet 20 MG PO (08:52)
--- NOTE | 2019-11-15 14:21 | PC.NURSE ---
DISCHARGE SUMMARY PATIENT WAS DISCHARGED AND VERBALIZED UNDERSTANDING. APPOINTMENTS WERE MADE TO FOLLOW UP WITH PCP. PATIENT IV WAS DISCONTINUED. PATIENT PRESCRIPTIONS WAS SENT TO [facility]. PATIENT HAD HOME O2 WITH HIM. VITAL SIGNS STABLE.
--- NOTE | 2019-11-15 17:28 | P.DS_ITS ---
Discharge Providers Date of Admission: 11/11/19 14:07 Date of Discharge: 11/15/19 Attending Provider at Admission: Davin Gu MD Attending Provider at Discharge: Woodrow Martin MD Diagnoses at Discharge Discharge Diagnosis (1) Pneumonia involving left lung: Status: Acute Qualifiers: Lung location: upper lobe of lung Pneumonia type: due to unspecified organism Qualified Code(s): J18.9 - Pneumonia, unspecified organism (2) Respiratory failure: Status: Acute (3) UTI (urinary tract infection): Status: Acute (4) COPD exacerbation: Status: Acute Reason for Visit Reason for Visit: Reason For Visit: Fever;Chest Pain;Dyspnea Hospital Course Discharge Summary: This is a 51-year-old male with a past medical history of COPD, not oxygen dependent, current smoker, CAD, hypertension, sleep apnea, history of squamous cell carcinoma the left lung with metastasis, stage IV, status post chemoradiation, currently undergoing immunotherapy through oncology, not a candidate for stenting of left upper lobe, who presents to the emergency room due to complaints of fever, cough, shortness of breath, chest pain. Patient was admitted for acute respiratory failure secondary to postobstructive pneumonia of the left lung, COPD exacerbation, placed on broad-spectrum antibiotics vancomycin and Zosyn, steroid therapy, nebulizer treatments, oxygen therapy, and IV fluids. Patient had a slow clinical progress, his blood cultures remain unremarkable, still required oxygen up to 3 L. Patient was discharged with Levaquin for 7 days, a steroid burst, home oxygen 3 L at rest, and outpatient follow-up with his primary care provider in 1 week, and to follow-up with hematology oncology as scheduled. Physical Exam Const: COMMON NORMALS: no apparent distress and oriented x3 HENMT: COMMON NORMALS: normocephalic HEAD & SCALP: normocephalic Neck/C-Spine: COMMON NORMALS: no JVD Resp: COMMON NORMALS: normal respiratory effort, no retractions and no use of accessory muscles EFFORT & INSPECTION: Yes audible wheezes Cardio: COMMON NORMALS: no JVD, regular rate, regular rhythm, S1 normal heart sound and S2 normal heart sound RATE: regular rate RHYTHM: regular rhythm HEART SOUNDS: S1 normal and S2 normal GI: COMMON NORMALS: normal to inspection, nondistended, normoactive bowel sounds, soft to palpation, non-tender, no hepatosplenomegaly, no masses and no bruits PALPATION: Yes soft and Yes no hepatosplenomegaly Extremity: COMMON NORMALS: normal capillary refill, no clubbing, cyanosis or edema, no calf tenderness and no pedal edema Neuro: COMMON NORMALS: oriented x3 Psych: COMMON NORMALS: mental status grossly normal Discharge Data Data Completed and Pending: Completed Studies During Hospitalization Category Date Time Status CT angio chest PE protcl [id number] Stat Cat Scan 11/11/19 11:16 Completed XR chest 1V cindy ble [id number] Urgent Exams 11/11/19 09:47 Completed Pending at discharge Category Date Time Status Blood Culture Sta t Lab 11/11/19 09:53 Results Labs from last 24 hours 11/15/19 11/15/19 04:40 04:40 WBC 8.6 RBC 3.60 L Hgb 11.5 L Hct 33.8 L MCV 93.9 MCH 31.9 MCHC 34.0 RDW 12.1 Plt Count 212 MPV 9.0 Neut % (Auto) 73.6 Lymph % (Auto) 16.1 [place] % (Auto) 9.5 Eos % (Auto) 0.1 Baso % (Auto) 0.1 Neut # (Auto) 6.4 Lymph # (Auto) 1.4 [place] # (Auto) 0.8 Eos # (Auto) 0.0 Baso # (Auto) 0.0 Nucleated RBC % (a uto) 0 Nucleated RBCs # 0.0 Sodium 138 Potassium 3.8 Chloride 101 Carbon Dioxide 23 Anion Gap 17.8 BUN 7 Creatinine 0.6 L GFR Calculation 138.4 H Glucose 108 Calcium 9.9 Phosphorus 3.3 Magnesium 1.9 Total Bilirubin 0.3 AST 39 ALT 80 H Alkaline Phosphata se 80 Total Protein 6.9 Albumin 3.1 L Globulin 3.8 Procalcitonin 0.05 Vitals: Last Vital Signs Temp 97.8 F 11/15/19 13:36 Pulse 67 11/15/19 13:36 Resp 18 11/15/19 13:36 BP 106/70 11/15/19 13:36 Pulse Ox 95 11/15/19 13:36 Discharge Plan Discharge Patient Disposition: Home, Self-Care Condition: Stable Prescriptions: New Levaquin 750 mg tablet 750 mg PO DAILY 7 Days Qty: 7 RF: 0 prednisone 20 mg tablet 20 mg PO BID 5 Days Qty: 10 RF: 0 Continued atorvastatin 20 mg Tablet 20 mg PO DAILY RF: 0 hydrocodone-acetaminophen 5-325 mg Tablet 1 tab PO BID PRN (Reason: Pain) RF: 0 gabapentin 300 mg Capsule 300 mg PO BID RF: 0 lorazepam 1 mg Tablet 1 mg PO DAILY PRN (Reason: Anxiety) RF: 0 albuterol sulfate 90 mcg/actuation Hfa Aerosol Inhaler 1 puff INHALATION QID PRN (Reason: Shortness Of Breath) RF: 0 metoprolol tartrate 25 mg Tablet 12.5 mg PO BID RF: 0 Spiriva with HandiHaler 18 mcg Capsule, W/Inhalation Device 1 cap INHALATION DAILY RF: 0 Symbicort 160-4.5 mcg/actuation Hfa Aerosol Inhaler 2 puff INHALATION BID RF: 0 Discontinued azithromycin 250 mg Tablet 250 mg PO DAILY RF: 0 Discharge Orders: Discharge Order (Routine); Ordered 11/15/19 Ordered By: Woodrow Martin Other Ambulatory Orders: DME: Oxygen (Order) Location: None Selected Ordered By: Woodrow Martin Referrals: Aubrey Vieira [Family Provider] - 11/28/19 1:00 pm Discharge Diet: Advance as tolerated Discharge Activity: Resume usual activity Patient Instructions: Prednisone (By mouth), Levofloxacin (By mouth), How to Stop Smoking (DC), Using Oxygen at Home (DC), Chronic Obstructive Pulmonary Disease (DC), Community-acquired Pneumonia (DC) Activity Restrictions/Additional Instructions: -Please follow-up with oncology as scheduled -Please follow-up with primary care provider in 1 to 2 weeks -Take antibiotics and steroids as prescribed -Please use oxygen as prescribed, do not smoke around oxygen tanks -Advised to quit smoking -If you have worsening shortness of breath, fevers, cough come back to the emergency room Discharge Date/Time: 11/15/19 14:31 Discharge Attestations Time Spent in Discharge Care*: less than 30 min Quality Metrics Clinical Quality Measures During this hospital stay, did patient experience: None Coding Level of Care Code 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
--- NOTE | 2019-11-16 15:58 | PC.RESP ---
Patient given Pulmonary Rehab/Smoking Cessation information.
== END 2019-11-15 14:31 | disposition home or self-care (01) | DRG 193 ==
LOC: ER 09:49 → MEDSURG 14:25
PROVIDERS: Admitting Provider Internal Medicine; Emergency Provider Family Medicine; Family Provider Internal Medicine; Visit Provider Family Medicine
DX: J18.9 Pneumonia, unspecified organism (principal); J96.90 Respiratory failure, unspecified, unspecified whether with hypoxia or hypercapnia; N39.0 Urinary tract infection, site not specified; J44.0 Chronic obstructive pulmonary disease with (acute) lower respiratory infection; J44.1 Chronic obstructive pulmonary disease with (acute) exacerbation; C34.12 Malignant neoplasm of upper lobe, left bronchus or lung; I25.10 Atherosclerotic heart disease of native coronary artery without angina pectoris; I10 Essential (primary) hypertension; Z79.899 Other long term (current) drug therapy; G47.33 Obstructive sleep apnea (adult) (pediatric); K42.9 Umbilical hernia without obstruction or gangrene; F41.9 Anxiety disorder, unspecified; G62.0 Drug-induced polyneuropathy; T45.1X5A Adverse effect of antineoplastic and immunosuppressive drugs, initial encounter
CPT/HCPCS: 12345; 36415; 36600; 71045; 71275; 80048; 80053; 80202; 81003; 82805; 83605; 83735; 84100; 84145; 84484; 85025; 87040; 87804; 93005; 94640; 96361; 96365; 96366; 96372; 96374; 96375; 99284; J1650; J2270; J2543; J3370; J7030; J7050; J7512; Q9967

== ENCOUNTER 2019-12-20 05:33 | Outpatient (RCR) | payer OTHER, SELFPAY ==
[2019-11-28 12:39] LABS: Basophils % 0.2 %; Eosinophils # 0.1 10^3/uL (0.0-0.8); Eosinophils % 1.6 %; Lymphocytes # 1.5 10^3/uL (0.8-4.8); Mean Corpuscular HGB Conc 33.3 g/dL (30.0-36.0); Mean Corpuscular Volume 96.1 fL (80-94); Mean Platelet Volume 9.1 fL (7.4-10.4); Neutrophils # 6.1 10^3/uL (1.8-7.7); Neutrophils % 69.1 %; Nucleated Red Blood Cells % 0 %; Platelet Count 174 10^3/cmm (130-400); Red Blood Count 4.06 10^6/uL (4.1-5.3); Red Cell Distribution Width 12.7 % (12.1-15.1); White Blood Count 8.9 10^3/uL (4.0-10.0)
[2019-11-28 13:00] LABS: Alanine Aminotransferase 32 U/L (0-41); Albumin Level 3.4 g/dL (3.5-5.2); Alkaline Phosphatase 89 IU/L (40-130); Anion Gap 15.1 (5-19); Aspartate Amino Transferase 17 U/L (0-40); Blood Urea Nitrogen 10 mg/dL (6-20); Calcium 9.7 mg/dL (8.5-10.5); Carbon Dioxide 25 mmol/L (22-29); Chloride 98 mmol/L (98-107); Globulin 3.7 g/dL (1.3-4.6); Glomerular Filtration Rate 115.8 mL/min (90-130); Glucose 93 mg/dL (74-109); Potassium 4.1 mmol/L (3.5-5.1); Sodium 134 mmol/L (136-145); Thyroid Stimulating Hormone 3.24 uIU/mL (0.27-4.20); Total Bilirubin 0.4 mg/dL (0.15-1.2); Total Protein 7.1 g/dL (6.6-8.7)
[2019-12-19 14:40] LABS: Basophils % 0.4 %; Eosinophils # 0.2 10^3/uL (0.0-0.8); Eosinophils % 2.2 %; Hematocrit 39.7 % (42.0-52.0); Hemoglobin 13.4 g/dL (11.7-16.6); Lymphocytes # 1.5 10^3/uL (0.8-4.8); Lymphocytes % 17.3 %; Mean Corpuscular HGB Conc 33.8 g/dL (30.0-36.0); Mean Corpuscular Hemoglobin 31.9 pg (28.0-34.0); Mean Corpuscular Volume 94.5 fL (80-94); Monocytes # 0.8 10^3/uL (0.2-0.9); Monocytes % 9.4 %; Neutrophils % 70.1 %; Nucleated Red Blood Cells % 0 %; Platelet Count 204 10^3/cmm (130-400); Red Cell Distribution Width 12.6 % (12.1-15.1); White Blood Count 8.5 10^3/uL (4.0-10.0)
[2019-12-19 15:17] LABS: Alanine Aminotransferase 12 U/L (0-41); Albumin Level 3.6 g/dL (3.5-5.2); Alkaline Phosphatase 97 IU/L (40-130); Anion Gap 16.6 (5-19); Aspartate Amino Transferase 13 U/L (0-40); Blood Urea Nitrogen 8 mg/dL (6-20); Calcium 9.8 mg/dL (8.5-10.5); Carbon Dioxide 26 mmol/L (22-29); Chloride 99 mmol/L (98-107); Globulin 3.7 g/dL (1.3-4.6); Glomerular Filtration Rate 138.4 mL/min (90-130); Glucose 118 mg/dL (65-115); Potassium 3.6 mmol/L (3.5-5.1); Sodium 138 mmol/L (136-145); Thyroid Stimulating Hormone 2.42 uIU/mL (0.27-4.20); Total Bilirubin 0.2 mg/dL (0.15-1.2); Total Protein 7.3 g/dL (6.6-8.7)
[2019-12-20] MEDS: sodium chloride 0.9% 250 ML 75 ML IV (16:25)
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
== END 2019-12-24 23:59 | disposition home or self-care (01) ==
LOC: ONCMED 05:33
PROVIDERS: Nurse Practitioner; Family Provider Internal Medicine; PCP Internal Medicine; Visit Provider Internal Medicine Hematology & Oncology
DX: Z51.12 Encounter for antineoplastic immunotherapy (principal); C78.7 Secondary malignant neoplasm of liver and intrahepatic bile duct; C34.91 Malignant neoplasm of unspecified part of right bronchus or lung; C78.02 Secondary malignant neoplasm of left lung; G47.33 Obstructive sleep apnea (adult) (pediatric); J43.9 Emphysema, unspecified; F17.210 Nicotine dependence, cigarettes, uncomplicated; Z79.51 Long term (current) use of inhaled steroids; Z79.891 Long term (current) use of opiate analgesic; Z92.3 Personal history of irradiation; Z87.01 Personal history of pneumonia (recurrent)
CPT/HCPCS: 36591; 80053; 84443; 85025; 96413; 99214; J7050; J9271

== ENCOUNTER 2020-01-10 05:41 | Outpatient (RCR) | payer OTHER, SELFPAY ==
[2020-01-09 13:24] LABS: Basophils # 0.1 10^3/uL (0.0-0.1); Basophils % 0.6 %; Eosinophils # 0.3 10^3/uL (0.0-0.8); Eosinophils % 3.1 %; Hematocrit 42.3 % (42.0-52.0); Hemoglobin 14.2 g/dL (11.7-16.6); Lymphocytes % 20.4 %; Mean Corpuscular HGB Conc 33.6 g/dL (30.0-36.0); Mean Corpuscular Hemoglobin 32.3 pg (28.0-34.0); Mean Corpuscular Volume 96.4 fL (80-94); Mean Platelet Volume 9.1 fL (7.4-10.4); Monocytes # 0.9 10^3/uL (0.2-0.9); Monocytes % 9.5 %; Neutrophils # 6.4 10^3/uL (1.8-7.7); Nucleated Red Blood Cells % 0 %; Platelet Count 239 10^3/cmm (130-400); Red Blood Count 4.39 10^6/uL (4.1-5.3); Red Cell Distribution Width 12.5 % (12.1-15.1); White Blood Count 9.8 10^3/uL (4.0-10.0)
[2020-01-09 13:39] LABS: Alanine Aminotransferase 12 U/L (0-41); Albumin Level 4.2 g/dL (3.5-5.2); Alkaline Phosphatase 102 IU/L (40-130); Aspartate Amino Transferase 15 U/L (0-40); Blood Urea Nitrogen 7 mg/dL (6-20); Calcium 9.8 mg/dL (8.5-10.5); Carbon Dioxide 31 mmol/L (22-29); Chloride 101 mmol/L (98-107); Globulin 3.4 g/dL (1.3-4.6); Glomerular Filtration Rate 99.3 mL/min (90-130); Glucose 101 mg/dL (65-115); Osmolality Calculated 286 mOsm/kg (285-295); Sodium 140 mmol/L (136-145); Total Bilirubin 0.3 mg/dL (0.15-1.2); Total Protein 7.6 g/dL (6.6-8.7)
[2020-01-09 14:24] LABS: Slide Review Slide Review Perform
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
== END 2020-01-24 23:59 | disposition home or self-care (01) ==
LOC: ONCMED 05:41
PROVIDERS: Internal Medicine Hematology & Oncology; Family Provider Internal Medicine; PCP Internal Medicine; Visit Provider Nurse Practitioner
DX: Z51.12 Encounter for antineoplastic immunotherapy (principal); C78.7 Secondary malignant neoplasm of liver and intrahepatic bile duct; C78.02 Secondary malignant neoplasm of left lung; C34.11 Malignant neoplasm of upper lobe, right bronchus or lung; C77.1 Secondary and unspecified malignant neoplasm of intrathoracic lymph nodes; G47.33 Obstructive sleep apnea (adult) (pediatric); J43.9 Emphysema, unspecified; M79.89 Other specified soft tissue disorders; I25.10 Atherosclerotic heart disease of native coronary artery without angina pectoris; E78.5 Hyperlipidemia, unspecified; K42.9 Umbilical hernia without obstruction or gangrene; Z79.891 Long term (current) use of opiate analgesic; Z79.899 Other long term (current) drug therapy; Z92.21 Personal history of antineoplastic chemotherapy; Z92.3 Personal history of irradiation; Z87.891 Personal history of nicotine dependence; Z87.01 Personal history of pneumonia (recurrent)
CPT/HCPCS: 36591; 80053; 85025; 96413; 99214; J7050; J9271

== ENCOUNTER 2020-02-22 06:40 | Outpatient (RCR) | payer OTHER, SELFPAY ==
[2020-01-30] MEDS: alteplase 1 mg/mL SDV 2 mL 2 MG IV (13:20)
[2020-01-30 13:51] LABS: Basophils % 0.5 %; Eosinophils # 0.3 10^3/uL (0.0-0.8); Eosinophils % 4.3 %; Hemoglobin 14.4 g/dL (11.7-16.6); Lymphocytes # 1.7 10^3/uL (0.8-4.8); Lymphocytes % 22.2 %; Mean Corpuscular HGB Conc 33.5 g/dL (30.0-36.0); Mean Corpuscular Hemoglobin 32.5 pg (28.0-34.0); Mean Corpuscular Volume 97.1 fL (80-94); Mean Platelet Volume 9.4 fL (7.4-10.4); Monocytes # 0.8 10^3/uL (0.2-0.9); Monocytes % 10.6 %; Neutrophils # 4.8 10^3/uL (1.8-7.7); Neutrophils % 61.9 %; Nucleated Red Blood Cells % 0 %; Platelet Count 197 10^3/cmm (130-400); Red Blood Count 4.43 10^6/uL (4.1-5.3); Red Cell Distribution Width 12.5 % (12.1-15.1); White Blood Count 7.8 10^3/uL (4.0-10.0)
[2020-01-31] MEDS: sodium chloride 0.9% 100 ML 75 ML (11:50)
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
[2020-02-21 17:52] LABS: Basophils % 0.4 %; Eosinophils # 0.3 10^3/uL (0.0-0.8); Hematocrit 41.9 % (42.0-52.0); Hemoglobin 13.6 g/dL (11.7-16.6); Lymphocytes # 1.6 10^3/uL (0.8-4.8); Lymphocytes % 20.8 %; Mean Corpuscular HGB Conc 32.5 g/dL (30.0-36.0); Mean Corpuscular Hemoglobin 31.9 pg (28.0-34.0); Mean Corpuscular Volume 98.1 fL (80-94); Mean Platelet Volume 8.9 fL (7.4-10.4); Monocytes # 0.7 10^3/uL (0.2-0.9); Neutrophils # 4.9 10^3/uL (1.8-7.7); Neutrophils % 64.9 %; Nucleated Red Blood Cells % 0 %; Platelet Count 232 10^3/cmm (130-400); Red Blood Count 4.27 10^6/uL (4.1-5.3); Red Cell Distribution Width 12.5 % (12.1-15.1); White Blood Count 7.6 10^3/uL (4.0-10.0)
[2020-02-21 18:21] LABS: Alanine Aminotransferase 13 U/L (0-41); Alkaline Phosphatase 104 IU/L (40-130); Anion Gap 13.9 (5-19); Blood Urea Nitrogen 7 mg/dL (6-20); Calcium 9.9 mg/dL (8.5-10.5); Carbon Dioxide 30 mmol/L (22-29); Chloride 100 mmol/L (98-107); Globulin 3.3 g/dL (1.3-4.6); Glomerular Filtration Rate 99.3 mL/min (90-130); Glucose 106 mg/dL (65-115); Osmolality Calculated 286 mOsm/kg (285-295); Potassium 3.9 mmol/L (3.5-5.1); Sodium 140 mmol/L (136-145); Thyroid Stimulating Hormone 1.97 uIU/mL (0.27-4.20); Total Bilirubin 0.2 mg/dL (0.15-1.2); Total Protein 7.3 g/dL (6.6-8.7)
[2020-02-21 18:57] LABS: Aspartate Amino Transferase 17 U/L (0-40)
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
== END 2020-02-23 23:59 | disposition home or self-care (01) ==
LOC: ONCMED 06:40
PROVIDERS: Nurse Practitioner; Family Provider Internal Medicine; PCP Internal Medicine; Visit Provider Internal Medicine Hematology & Oncology
DX: Z51.12 Encounter for antineoplastic immunotherapy (principal); C34.11 Malignant neoplasm of upper lobe, right bronchus or lung; C78.02 Secondary malignant neoplasm of left lung; C78.7 Secondary malignant neoplasm of liver and intrahepatic bile duct; G47.33 Obstructive sleep apnea (adult) (pediatric); J43.9 Emphysema, unspecified; Z51.81 Encounter for therapeutic drug level monitoring; Z79.899 Other long term (current) drug therapy; Z92.3 Personal history of irradiation; Z87.891 Personal history of nicotine dependence
CPT/HCPCS: 36415; 36593; 80053; 84443; 85025; 96374; 96413; 99214; J2997; J7050; J9271

== ENCOUNTER 2020-03-13 06:42 | Outpatient (RCR) | payer OTHER, SELFPAY ==
[2020-03-12 10:26] LABS: Basophils # 0.1 10^3/uL (0.0-0.1); Basophils % 0.7 %; Eosinophils # 0.4 10^3/uL (0.0-0.8); Eosinophils % 4.5 %; Hematocrit 42.8 % (42.0-52.0); Hemoglobin 14.3 g/dL (11.7-16.6); Lymphocytes # 2.2 10^3/uL (0.8-4.8); Lymphocytes % 25.2 %; Mean Corpuscular HGB Conc 33.4 g/dL (30.0-36.0); Mean Corpuscular Hemoglobin 32.2 pg (28.0-34.0); Mean Corpuscular Volume 96.4 fL (80-94); Monocytes # 0.8 10^3/uL (0.2-0.9); Monocytes % 8.7 %; Neutrophils # 5.2 10^3/uL (1.8-7.7); Neutrophils % 60.3 %; Nucleated Red Blood Cells % 0 %; Platelet Count 220 10^3/cmm (130-400); Red Blood Count 4.44 10^6/uL (4.1-5.3); Red Cell Distribution Width 12.2 % (12.1-15.1); White Blood Count 8.6 10^3/uL (4.0-10.0)
[2020-03-12 10:41] LABS: Alanine Aminotransferase 12 U/L (0-41); Albumin Level 4.1 g/dL (3.5-5.2); Alkaline Phosphatase 98 IU/L (40-130); Aspartate Amino Transferase 15 U/L (0-40); Blood Urea Nitrogen 7 mg/dL (6-20); Calcium 10.1 mg/dL (8.5-10.5); Carbon Dioxide 26 mmol/L (22-29); Chloride 101 mmol/L (98-107); Globulin 3.2 g/dL (1.3-4.6); Glomerular Filtration Rate 115.8 mL/min (90-130); Glucose 99 mg/dL (65-115); Osmolality Calculated 284 mOsm/kg (285-295); Sodium 139 mmol/L (136-145); Total Bilirubin 0.4 mg/dL (0.15-1.2); Total Protein 7.3 g/dL (6.6-8.7)
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
== END 2020-03-25 23:59 | disposition home or self-care (01) ==
LOC: ONCMED 06:42
PROVIDERS: PCP Internal Medicine; Visit Provider Internal Medicine Hematology & Oncology
DX: Z51.12 Encounter for antineoplastic immunotherapy (principal); C34.91 Malignant neoplasm of unspecified part of right bronchus or lung; C34.92 Malignant neoplasm of unspecified part of left bronchus or lung; C78.7 Secondary malignant neoplasm of liver and intrahepatic bile duct; G47.33 Obstructive sleep apnea (adult) (pediatric); J44.9 Chronic obstructive pulmonary disease, unspecified; I25.10 Atherosclerotic heart disease of native coronary artery without angina pectoris; E78.5 Hyperlipidemia, unspecified; Z92.21 Personal history of antineoplastic chemotherapy; Z92.3 Personal history of irradiation
CPT/HCPCS: 36591; 80053; 85025; 96413; 99214; J7050; J9271

== ENCOUNTER 2020-04-24 06:47 | Outpatient (RCR) | payer OTHER, SELFPAY ==
[2020-04-02 11:22] LABS: Basophils # 0.1 10^3/uL (0.0-0.1); Basophils % 0.7 %; Eosinophils # 0.3 10^3/uL (0.0-0.8); Eosinophils % 2.9 %; Hematocrit 42.8 % (42.0-52.0); Hemoglobin 14.5 g/dL (11.7-16.6); Lymphocytes # 1.8 10^3/uL (0.8-4.8); Lymphocytes % 20.4 %; Mean Corpuscular HGB Conc 33.9 g/dL (30.0-36.0); Mean Corpuscular Volume 97.3 fL (80-94); Mean Platelet Volume 8.7 fL (7.4-10.4); Monocytes # 0.7 10^3/uL (0.2-0.9); Monocytes % 7.9 %; Neutrophils # 5.9 10^3/uL (1.8-7.7); Neutrophils % 67.6 %; Nucleated Red Blood Cells % 0 %; Platelet Count 227 10^3/cmm (130-400); Red Cell Distribution Width 12.3 % (12.1-15.1); White Blood Count 8.7 10^3/uL (4.0-10.0)
[2020-04-02 11:54] LABS: Alanine Aminotransferase 11 U/L (0-41); Alkaline Phosphatase 97 IU/L (40-130); Aspartate Amino Transferase 17 U/L (0-40); Blood Urea Nitrogen 6 mg/dL (6-20); Calcium 10.2 mg/dL (8.5-10.5); Carbon Dioxide 24 mmol/L (22-29); Chloride 100 mmol/L (98-107); Globulin 3.6 g/dL (1.3-4.6); Glomerular Filtration Rate 115.8 mL/min (90-130); Glucose 106 mg/dL (65-115); Osmolality Calculated 282 mOsm/kg (285-295); Sodium 138 mmol/L (136-145); Total Bilirubin 0.4 mg/dL (0.15-1.2); Total Protein 7.6 g/dL (6.6-8.7)
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
[2020-04-23 11:12] LABS: Basophils # 0.1 10^3/uL (0.0-0.1); Basophils % 0.5 %; Eosinophils # 0.4 10^3/uL (0.0-0.8); Eosinophils % 4.2 %; Hematocrit 43.4 % (42.0-52.0); Hemoglobin 14.3 g/dL (11.7-16.6); Lymphocytes # 1.8 10^3/uL (0.8-4.8); Lymphocytes % 19.2 %; Mean Corpuscular HGB Conc 32.9 g/dL (30.0-36.0); Mean Corpuscular Hemoglobin 32.1 pg (28.0-34.0); Mean Corpuscular Volume 97.5 fL (80-94); Mean Platelet Volume 8.9 fL (7.4-10.4); Monocytes # 0.8 10^3/uL (0.2-0.9); Monocytes % 8.3 %; Neutrophils # 6.2 10^3/uL (1.8-7.7); Neutrophils % 67.3 %; Nucleated Red Blood Cells % 0 %; Platelet Count 217 10^3/cmm (130-400); Red Blood Count 4.45 10^6/uL (4.1-5.3); Red Cell Distribution Width 12.2 % (12.1-15.1); White Blood Count 9.2 10^3/uL (4.0-10.0)
[2020-04-23 12:20] LABS: Alanine Aminotransferase 14 U/L (0-41); Albumin Level 4.1 g/dL (3.5-5.2); Alkaline Phosphatase 97 IU/L (40-130); Anion Gap 14.9 (5-19); Aspartate Amino Transferase 16 U/L (0-40); Blood Urea Nitrogen 7 mg/dL (6-20); Calcium 9.7 mg/dL (8.5-10.5); Carbon Dioxide 27 mmol/L (22-29); Chloride 100 mmol/L (98-107); Globulin 3.4 g/dL (1.3-4.6); Glomerular Filtration Rate 138.4 mL/min (90-130); Glucose 126 mg/dL (65-115); Osmolality Calculated 283 mOsm/kg (285-295); Potassium 3.9 mmol/L (3.5-5.1); Sodium 138 mmol/L (136-145); Thyroid Stimulating Hormone 3.54 uIU/mL (0.27-4.20); Total Bilirubin 0.3 mg/dL (0.15-1.2); Total Protein 7.5 g/dL (6.6-8.7)
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
== END 2020-04-24 23:59 | disposition home or self-care (01) ==
LOC: ONCMED 06:47
PROVIDERS: PCP Internal Medicine; Visit Provider Internal Medicine Hematology & Oncology
DX: Z51.12 Encounter for antineoplastic immunotherapy (principal); C34.11 Malignant neoplasm of upper lobe, right bronchus or lung; J44.1 Chronic obstructive pulmonary disease with (acute) exacerbation; J96.01 Acute respiratory failure with hypoxia; J18.9 Pneumonia, unspecified organism; N39.0 Urinary tract infection, site not specified; Z92.3 Personal history of irradiation; Z79.899 Other long term (current) drug therapy
CPT/HCPCS: 36591; 80053; 84443; 85025; 96413; 99214; J7050; J9271

== ENCOUNTER 2020-05-15 06:45 | Outpatient (RCR) | payer OTHER, SELFPAY ==
[2020-05-14] MEDS: alteplase 1 mg/mL SDV 2 mL 2 MG IV (10:30)
[2020-05-14 11:28] LABS: Basophils # 0.1 10^3/uL (0.0-0.1); Basophils % 0.7 %; Eosinophils # 0.4 10^3/uL (0.0-0.8); Hematocrit 40.6 % (42.0-52.0); Hemoglobin 13.6 g/dL (11.7-16.6); Lymphocytes # 1.8 10^3/uL (0.8-4.8); Lymphocytes % 20.7 %; Mean Corpuscular HGB Conc 33.5 g/dL (30.0-36.0); Mean Corpuscular Hemoglobin 32.5 pg (28.0-34.0); Mean Corpuscular Volume 96.9 fL (80-94); Mean Platelet Volume 8.9 fL (7.4-10.4); Monocytes # 0.8 10^3/uL (0.2-0.9); Monocytes % 8.7 %; Neutrophils # 5.75 10^3/uL (1.8-7.7); Neutrophils % 64.9 %; Nucleated Red Blood Cells % 0 %; Platelet Count 216 10^3/cmm (130-400); Red Blood Count 4.19 10^6/uL (4.1-5.3); White Blood Count 8.9 10^3/uL (4.0-10.0)
[2020-05-14 12:02] LABS: Alanine Aminotransferase 13 U/L (0-41); Albumin Level 3.9 g/dL (3.5-5.2); Alkaline Phosphatase 99 IU/L (40-130); Anion Gap 13.6 (5-19); Aspartate Amino Transferase 15 U/L (0-40); Blood Urea Nitrogen 9 mg/dL (6-20); Carbon Dioxide 26 mmol/L (22-29); Chloride 101 mmol/L (98-107); Globulin 3.1 g/dL (1.3-4.6); Glomerular Filtration Rate 138.4 mL/min (90-130); Glucose 131 mg/dL (65-115); Osmolality Calculated 282 mOsm/kg (285-295); Potassium 3.6 mmol/L (3.5-5.1); Sodium 137 mmol/L (136-145); Thyroid Stimulating Hormone 3.19 uIU/mL (0.27-4.20); Total Bilirubin 0.3 mg/dL (0.15-1.2)
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
== END 2020-05-25 23:59 | disposition home or self-care (01) ==
LOC: ONCMED 06:45
PROVIDERS: Visit Provider Internal Medicine Hematology & Oncology
DX: Z51.12 Encounter for antineoplastic immunotherapy (principal); C78.7 Secondary malignant neoplasm of liver and intrahepatic bile duct; C34.91 Malignant neoplasm of unspecified part of right bronchus or lung; C77.1 Secondary and unspecified malignant neoplasm of intrathoracic lymph nodes; C78.02 Secondary malignant neoplasm of left lung; D69.6 Thrombocytopenia, unspecified; G47.30 Sleep apnea, unspecified; J43.9 Emphysema, unspecified; Z79.899 Other long term (current) drug therapy; Z79.51 Long term (current) use of inhaled steroids; Z79.891 Long term (current) use of opiate analgesic; Z87.891 Personal history of nicotine dependence; Z92.3 Personal history of irradiation; Z92.21 Personal history of antineoplastic chemotherapy
CPT/HCPCS: 36593; 80053; 84443; 85025; 96374; 96413; 99214; J2997; J7050; J9271

== ENCOUNTER 2020-06-05 06:01 | Outpatient (RCR) | payer OTHER, SELFPAY ==
[2020-06-05 11:45] LABS: Basophils # 0.1 10^3/uL (0.0-0.1); Basophils % 0.6 %; Eosinophils # 0.5 10^3/uL (0.0-0.8); Eosinophils % 5.8 %; Hematocrit 41.6 % (42.0-52.0); Lymphocytes % 23.2 %; Mean Corpuscular HGB Conc 33.7 g/dL (30.0-36.0); Mean Corpuscular Hemoglobin 32.8 pg (28.0-34.0); Mean Corpuscular Volume 97.4 fL (80-94); Mean Platelet Volume 8.8 fL (7.4-10.4); Monocytes # 0.9 10^3/uL (0.2-0.9); Monocytes % 9.9 %; Neutrophils # 5.29 10^3/uL (1.8-7.7); Neutrophils % 59.9 %; Nucleated Red Blood Cells % 0 %; Platelet Count 208 10^3/cmm (130-400); Red Blood Count 4.27 10^6/uL (4.1-5.3); Red Cell Distribution Width 12.2 % (12.1-15.1); White Blood Count 8.8 10^3/uL (4.0-10.0)
[2020-06-05 12:00] LABS: Alanine Aminotransferase 12 U/L (0-41); Albumin Level 3.8 g/dL (3.5-5.2); Alkaline Phosphatase 87 IU/L (40-130); Anion Gap 10.7 (5-19); Aspartate Amino Transferase 14 U/L (0-40); Blood Urea Nitrogen 8 mg/dL (6-20); Calcium 9.1 mg/dL (8.5-10.5); Carbon Dioxide 28 mmol/L (22-29); Chloride 103 mmol/L (98-107); Globulin 2.9 g/dL (1.3-4.6); Glomerular Filtration Rate 99.3 mL/min (90-130); Glucose 104 mg/dL (65-115); Osmolality Calculated 282 mOsm/kg (285-295); Potassium 3.7 mmol/L (3.5-5.1); Sodium 138 mmol/L (136-145); Thyroid Stimulating Hormone 3.94 uIU/mL (0.27-4.20); Total Bilirubin 0.3 mg/dL (0.15-1.2); Total Protein 6.7 g/dL (6.6-8.7)
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
== END 2020-06-25 23:59 | disposition home or self-care (01) ==
LOC: ONCMED 06:01
PROVIDERS: Visit Provider Internal Medicine Hematology & Oncology
DX: Z51.12 Encounter for antineoplastic immunotherapy (principal); C34.12 Malignant neoplasm of upper lobe, left bronchus or lung; J43.9 Emphysema, unspecified; G47.30 Sleep apnea, unspecified; F17.210 Nicotine dependence, cigarettes, uncomplicated; Z92.3 Personal history of irradiation
CPT/HCPCS: 80053; 84443; 85025; 96413; 99214; J7050; J9271

== ENCOUNTER 2020-07-19 06:18 | Outpatient (RCR) | payer OTHER, SELFPAY ==
[2020-06-28 09:02] LABS: Basophils # 0.1 10^3/uL (0.0-0.1); Basophils % 0.6 %; Eosinophils # 0.4 10^3/uL (0.0-0.8); Hematocrit 41.6 % (42.0-52.0); Hemoglobin 14.2 g/dL (11.7-16.6); Lymphocytes # 1.9 10^3/uL (0.8-4.8); Mean Corpuscular HGB Conc 34.1 g/dL (30.0-36.0); Mean Corpuscular Hemoglobin 33.1 pg (28.0-34.0); Mean Platelet Volume 8.9 fL (7.4-10.4); Monocytes # 0.7 10^3/uL (0.2-0.9); Monocytes % 8.4 %; Neutrophils # 4.93 10^3/uL (1.8-7.7); Neutrophils % 61.5 %; Nucleated Red Blood Cells % 0 %; Platelet Count 210 10^3/cmm (130-400); Red Blood Count 4.29 10^6/uL (4.1-5.3); Red Cell Distribution Width 11.9 % (12.1-15.1)
[2020-06-28 09:33] LABS: Alanine Aminotransferase 15 U/L (0-41); Albumin Level 4.1 g/dL (3.5-5.2); Alkaline Phosphatase 88 IU/L (40-130); Aspartate Amino Transferase 13 U/L (0-40); Blood Urea Nitrogen 9 mg/dL (6-20); Carbon Dioxide 26 mmol/L (22-29); Chloride 100 mmol/L (98-107); Globulin 3.2 g/dL (1.3-4.6); Glomerular Filtration Rate 138.4 mL/min (90-130); Glucose 109 mg/dL (65-115); Osmolality Calculated 281 mOsm/kg (285-295); Sodium 137 mmol/L (136-145); Thyroid Stimulating Hormone 5.13 uIU/mL (0.27-4.20); Total Bilirubin 0.2 mg/dL (0.15-1.2); Total Protein 7.3 g/dL (6.6-8.7)
[2020-06-28 10:52] LABS: Free T4 Free Thyroxine 1.17 ng/dL (0.82-1.77)
[2020-06-28] MEDS: sodium chloride 0.9% 250 ML IV (11:40)
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
[2020-07-19 08:44] LABS: Basophils # 0.1 10^3/uL (0.0-0.1); Basophils % 0.5 %; Eosinophils # 0.5 10^3/uL (0.0-0.8); Eosinophils % 5.3 %; Hemoglobin 14.8 g/dL (11.7-16.6); Lymphocytes # 2.3 10^3/uL (0.8-4.8); Lymphocytes % 23.8 %; Mean Corpuscular HGB Conc 32.9 g/dL (30.0-36.0); Mean Corpuscular Hemoglobin 32.5 pg (28.0-34.0); Mean Corpuscular Volume 98.7 fL (80-94); Mean Platelet Volume 8.5 fL (7.4-10.4); Monocytes # 0.8 10^3/uL (0.2-0.9); Monocytes % 8.2 %; Neutrophils # 5.86 10^3/uL (1.8-7.7); Neutrophils % 61.7 %; Nucleated Red Blood Cells % 0 %; Platelet Count 218 10^3/cmm (130-400); Red Blood Count 4.56 10^6/uL (4.1-5.3); Red Cell Distribution Width 12.2 % (12.1-15.1); White Blood Count 9.5 10^3/uL (4.0-10.0)
[2020-07-19 09:20] LABS: Alanine Aminotransferase 12 U/L (0-41); Albumin Level 4.1 g/dL (3.5-5.2); Alkaline Phosphatase 87 IU/L (40-130); Anion Gap 14.3 (5-19); Aspartate Amino Transferase 13 U/L (0-40); Blood Urea Nitrogen 10 mg/dL (6-20); Calcium 9.5 mg/dL (8.5-10.5); Carbon Dioxide 27 mmol/L (22-29); Chloride 100 mmol/L (98-107); Globulin 3.3 g/dL (1.3-4.6); Glomerular Filtration Rate 115.8 mL/min (90-130); Glucose 104 mg/dL (65-115); Osmolality Calculated 283 mOsm/kg (285-295); Potassium 4.3 mmol/L (3.5-5.1); Sodium 137 mmol/L (136-145); Thyroid Stimulating Hormone 4.75 uIU/mL (0.27-4.20); Total Bilirubin 0.4 mg/dL (0.15-1.2); Total Protein 7.4 g/dL (6.6-8.7)
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
== END 2020-07-25 23:59 | disposition home or self-care (01) ==
LOC: ONCMED 06:18
PROVIDERS: Nurse Practitioner; Visit Provider Internal Medicine Hematology & Oncology
DX: Z51.12 Encounter for antineoplastic immunotherapy (principal); C34.91 Malignant neoplasm of unspecified part of right bronchus or lung; C34.92 Malignant neoplasm of unspecified part of left bronchus or lung; C78.7 Secondary malignant neoplasm of liver and intrahepatic bile duct; D69.6 Thrombocytopenia, unspecified; G47.30 Sleep apnea, unspecified; J18.9 Pneumonia, unspecified organism; J43.9 Emphysema, unspecified; F17.210 Nicotine dependence, cigarettes, uncomplicated; J90 Pleural effusion, not elsewhere classified; Z92.3 Personal history of irradiation
CPT/HCPCS: 80053; 84439; 84443; 85025; 96413; 99214; J7050; J9271

== ENCOUNTER → 2020-08-03 12:42 | Outpatient (BNVA) | payer OTHER, SELFPAY | PROVIDERS: Visit Provider Surgery | DX: Z11.59 Encounter for screening for other viral diseases (principal) | CPT/HCPCS: 87635 ==

== ENCOUNTER 2020-08-08 07:03 | Day surgery (SDC) | payer OTHER, SELFPAY ==
[2020-08-06 10:11] VITALS: BMI 29.1
[2020-08-08 07:11] VITALS: BP 98/65; PULSE 101; RESP 20; TEMP 36.2; O2SAT 98
[2020-08-08] MEDS: sodium chloride 0.9% 1,000 ML 30 ML IV (07:43)
--- NOTE | 2020-08-08 08:46 | P.ANESASSM_ITS ---
Pre-Anesthetic Assessment Pre-Anesthetic Assessment: Height/Weight: Height 1.83 m Weight 97.522 kg Temp Pulse Resp BP Pulse Ox 97.2 F L 101 H 20 H 98/65 98 08/08/20 07:11 08/08/20 07:11 08/08/20 07:11 08/08/20 07:11 08/08/20 07:11 Preop Diagnosis: Abnormal PET/CT of the colon Proposed Procedure: Operation Date: 08/08/20 08:30 Proposed Procedures p Colonoscopy 53318 R94.8(Not Applicable) - Jamal Parson MD Familial anesthetic complications: None Was Beta Salbador taken within 24 mariposa rs: Yes Last intake: Intake Last Liquid Date 08/07/20 Last Liquid Time 22:00 Last Solid Date 08/06/20 Last Solid Time 19:00 Social: Social History: Tobacco and No alcohol Exam: Pre-Anes Outpt Exam: alert, oriented x 3, clear to auscultation bilaterally and regular rate & rhythm Additional Exam Findings (including area of procedure): diminished, coarse breath sounds b/l Airway: Cervical ROM: WNL MP: 3 Dentition: Other (edentulous) Pulmonary: Pulmonary: COPD (2-3 L NC continuously) and Sleep apnea (CPAP at night) Comments: Lung cacncer CV/HEM: CV/HEM: CAD (stents in 2008 - not on blood thinners anymore) and HTN Metabolic: Metabolic: Hyperlipidemia Anesthetic Plan: ASA status: 4 Anesthesia: MAC Risk of > 500 ml blood loss (7ml/kg in children): No Meds/Allergies Current Medications: Current Medications Generic Name Dose Route Start Last Admin Trade Name Freq PRN Reason Stop Dose Admin Sodium Chloride 1,000 mls @ 30 ml s/hr 08/08/20 07:15 08/08/20 07:43 Sodium Chloride 0.9% IV 08/09/20 07:14 30 mls/hr .Q24H DIONICIO Administration PFSH Anesthesia PFSH: Medical History (Updated 07/23/20 @ 15:41 by Jamal Parson MD) Anxiety COPD (chronic obstructive pulmonary disease) Coronary disease Hypertension Neuropathy, peripheral Sleep apnea, obstructive Squamous cell carcinoma of left lung Thrombocytopenia Tobacco dependency Umbilical hernia Surgical History (Updated 11/11/19 @ 16:44 by Davin Gu MD) History of coronary artery stent placement Port-A-Cath in place S/P bronchoscopy with biopsy Family History (Updated 11/11/19 @ 16:44 by Davin Gu MD) Mother Cancer Colon cancer Social History (Updated 11/11/19 @ 16:45 by Davin Gu MD) Smoking and tobacco status: current every day smoker Alcohol intake: never Data Anesthesia Cardiac Studies: No Data to Display
--- NOTE | 2020-08-08 09:56 | W.PM.OPSUD ---
Surgery/Procedure H&P Update DATE OF PROCEDURE: August 08, 2020 DATE H&P PERFORMED: 07/23/20 H&P UPDATE INFORMATION: I have reviewed H&P completed within last 30 days, I have examined patient prior to procedure and No changes to prior documentation PREOP DIAGNOSIS: Abnormal PET/CT of the colon PRIMARY INDICATION FOR PROCEDURE: The same PLANNED PROCEDURE: Operation Date: 08/08/20 08:30 Proposed Procedures p Colonoscopy 19018 R94.8(Not Applicable) - Jamal Parson MD
[2020-08-08 11:16] VITALS: BP 99/62; PULSE 77; RESP 16; TEMP 36.4; O2SAT 96
--- NOTE | 2020-08-08 11:22 | ANE.PACU2 ---
Inpatient post-anesthesia follow up: Airway intact: Yes Vital signs: Temperature 97.2 F Pulse Rate 101 Respiratory Rate 20 Blood Pressure 98/65 Pulse Oximetry 98 Oxygen Delivery Me thod Nasal Cannula Oxygen Flow Rate 3 Fraction of Inspir ed Oxygen Hydration adequate: Yes Nausea and vomiting: No Pain level: 1 Mental status: Baseline
== END 2020-08-08 11:41 | disposition home or self-care (01) ==
PROVIDERS: PCP Surgery; Visit Provider Surgery
PROC: 0DJD8ZZ Inspection of Lower Intestinal Tract, Via Natural or Artificial Opening Endoscopic (ICD-10-PCS; CPT 45378; principal; 2020-08-08 08:30)
DX: R94.8 Abnormal results of function studies of other organs and systems (principal); D12.4 Benign neoplasm of descending colon; D12.8 Benign neoplasm of rectum; I25.10 Atherosclerotic heart disease of native coronary artery without angina pectoris; I10 Essential (primary) hypertension; G47.30 Sleep apnea, unspecified; Z95.1 Presence of aortocoronary bypass graft; F17.210 Nicotine dependence, cigarettes, uncomplicated
CPT/HCPCS: 12345; 45385; 88305; J2704; J3535; J7030

== ENCOUNTER 2020-08-21 05:57 | Outpatient (RCR) | payer OTHER, SELFPAY ==
[2020-08-21] MEDS: alteplase 1 mg/mL SDV 2 mL 2 MG INTRACATH (09:15)
[2020-08-21 09:25] LABS: Basophils # 0.1 10^3/uL (0.0-0.1); Basophils % 0.6 %; Eosinophils # 0.4 10^3/uL (0.0-0.8); Eosinophils % 3.9 %; Hematocrit 42.9 % (42.0-52.0); Hemoglobin 14.5 g/dL (11.7-16.6); Lymphocytes # 1.7 10^3/uL (0.8-4.8); Lymphocytes % 19.5 %; Mean Corpuscular HGB Conc 33.8 g/dL (30.0-36.0); Mean Corpuscular Volume 94.7 fL (80-94); Mean Platelet Volume 8.6 fL (7.4-10.4); Monocytes # 0.7 10^3/uL (0.2-0.9); Monocytes % 8.2 %; Neutrophils % 67.1 %; Nucleated Red Blood Cells % 0 %; Platelet Count 224 10^3/cmm (130-400); Red Blood Count 4.53 10^6/uL (4.1-5.3); Red Cell Distribution Width 11.8 % (12.1-15.1); White Blood Count 8.9 10^3/uL (4.0-10.0)
[2020-08-21 10:02] LABS: Alanine Aminotransferase 11 U/L (0-41); Alkaline Phosphatase 97 IU/L (40-130); Aspartate Amino Transferase 12 U/L (0-40); Blood Urea Nitrogen 11 mg/dL (6-20); Calcium 9.9 mg/dL (8.5-10.5); Carbon Dioxide 27 mmol/L (22-29); Chloride 101 mmol/L (98-107); Globulin 3.2 g/dL (1.3-4.6); Glomerular Filtration Rate 98.9 mL/min (90-130); Glucose 116 mg/dL (65-115); Osmolality Calculated 284 mOsm/kg (285-295); Sodium 137 mmol/L (136-145); Total Bilirubin 0.4 mg/dL (0.15-1.2); Total Protein 7.2 g/dL (6.6-8.7)
[2020-08-21] MEDS: sodium chloride 0.9% 250 ML 75 ML IV (12:00)
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
== END 2020-08-25 23:59 | disposition home or self-care (01) ==
LOC: ONCMED 05:57
PROVIDERS: PCP Surgery; Visit Provider Internal Medicine Hematology & Oncology
DX: Z51.12 Encounter for antineoplastic immunotherapy (principal); C34.81 Malignant neoplasm of overlapping sites of right bronchus and lung; C78.7 Secondary malignant neoplasm of liver and intrahepatic bile duct; C78.02 Secondary malignant neoplasm of left lung; T82.9XXA Unspecified complication of cardiac and vascular prosthetic device, implant and graft, initial encounter; Y82.9 Unspecified medical devices associated with adverse incidents; D69.6 Thrombocytopenia, unspecified; J44.9 Chronic obstructive pulmonary disease, unspecified; G47.30 Sleep apnea, unspecified; K57.30 Diverticulosis of large intestine without perforation or abscess without bleeding; F43.21 Adjustment disorder with depressed mood; Z79.891 Long term (current) use of opiate analgesic; Z87.01 Personal history of pneumonia (recurrent); Z92.3 Personal history of irradiation
CPT/HCPCS: 36593; 80053; 84443; 85025; 96375; 96413; 99214; J2997; J7050; J9271

== ENCOUNTER 2020-09-11 06:07 | Outpatient (RCR) | payer OTHER, SELFPAY ==
[2020-09-11 08:56] LABS: Basophils # 0.1 10^3/uL (0.0-0.1); Basophils % 0.6 %; Eosinophils # 0.4 10^3/uL (0.0-0.8); Eosinophils % 4.6 %; Hematocrit 43.5 % (42.0-52.0); Hemoglobin 14.1 g/dL (11.7-16.6); Lymphocytes # 1.8 10^3/uL (0.8-4.8); Lymphocytes % 20.9 %; Mean Corpuscular HGB Conc 32.4 g/dL (30.0-36.0); Mean Corpuscular Hemoglobin 31.2 pg (28.0-34.0); Mean Corpuscular Volume 96.2 fL (80-94); Mean Platelet Volume 8.7 fL (7.4-10.4); Monocytes # 0.7 10^3/uL (0.2-0.9); Monocytes % 7.8 %; Neutrophils # 5.76 10^3/uL (1.8-7.7); Neutrophils % 65.6 %; Nucleated Red Blood Cells % 0 %; Platelet Count 223 10^3/cmm (130-400); Red Blood Count 4.52 10^6/uL (4.1-5.3); Red Cell Distribution Width 12.4 % (12.1-15.1); White Blood Count 8.8 10^3/uL (4.0-10.0)
[2020-09-11 09:26] LABS: Alanine Aminotransferase 13 U/L (0-41); Albumin Level 3.9 g/dL (3.5-5.2); Alkaline Phosphatase 94 IU/L (40-130); Anion Gap 14.9 (5-19); Aspartate Amino Transferase 12 U/L (0-40); Blood Urea Nitrogen 9 mg/dL (6-20); Calcium 9.4 mg/dL (8.5-10.5); Carbon Dioxide 27 mmol/L (22-29); Chloride 99 mmol/L (98-107); Glomerular Filtration Rate 98.9 mL/min (90-130); Glucose 106 mg/dL (65-115); Osmolality Calculated 283 mOsm/kg (285-295); Potassium 3.9 mmol/L (3.5-5.1); Sodium 137 mmol/L (136-145); Thyroid Stimulating Hormone 5.23 uIU/mL (0.27-4.20); Total Bilirubin 0.3 mg/dL (0.15-1.2); Total Protein 6.9 g/dL (6.6-8.7)
[2020-09-11] MEDS: sodium chloride 0.9% 250 ML 75 ML IV (11:05)
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
== END 2020-09-24 23:59 | disposition home or self-care (01) ==
LOC: ONCMED 06:07
PROVIDERS: Nurse Practitioner; Visit Provider Internal Medicine Hematology & Oncology
DX: Z51.12 Encounter for antineoplastic immunotherapy (principal); C34.91 Malignant neoplasm of unspecified part of right bronchus or lung; C34.92 Malignant neoplasm of unspecified part of left bronchus or lung; C78.7 Secondary malignant neoplasm of liver and intrahepatic bile duct; J18.9 Pneumonia, unspecified organism; R91.1 Solitary pulmonary nodule; Z92.3 Personal history of irradiation; Z92.21 Personal history of antineoplastic chemotherapy; Z79.899 Other long term (current) drug therapy
CPT/HCPCS: 80053; 84443; 85025; 96413; 99214; J7050; J9271

== ENCOUNTER 2020-10-24 11:57 | Outpatient (RCR) | payer OTHER, SELFPAY ==
[2020-10-02 10:57] LABS: Basophils # 0.1 10^3/uL (0.0-0.1); Basophils % 0.6 %; Eosinophils # 0.4 10^3/uL (0.0-0.8); Eosinophils % 3.9 %; Hematocrit 43.3 % (42.0-52.0); Hemoglobin 14.5 g/dL (11.7-16.6); Lymphocytes # 1.7 10^3/uL (0.8-4.8); Lymphocytes % 17.5 %; Mean Corpuscular HGB Conc 33.5 g/dL (30.0-36.0); Mean Corpuscular Hemoglobin 31.9 pg (28.0-34.0); Mean Corpuscular Volume 95.2 fL (80-94); Mean Platelet Volume 8.9 fL (7.4-10.4); Monocytes # 0.6 10^3/uL (0.2-0.9); Monocytes % 6.8 %; Neutrophils # 6.63 10^3/uL (1.8-7.7); Neutrophils % 70.5 %; Nucleated Red Blood Cells % 0 %; Platelet Count 226 10^3/cmm (130-400); Red Blood Count 4.55 10^6/uL (4.1-5.3); Red Cell Distribution Width 12.6 % (12.1-15.1); White Blood Count 9.4 10^3/uL (4.0-10.0)
[2020-10-02 10:59] LABS: Alanine Aminotransferase 13 U/L (0-41); Albumin Level 3.9 g/dL (3.5-5.2); Alkaline Phosphatase 93 IU/L (40-130); Anion Gap 14.1 (5-19); Aspartate Amino Transferase 11 U/L (0-40); Blood Urea Nitrogen 11 mg/dL (6-20); Calcium 9.4 mg/dL (8.5-10.5); Carbon Dioxide 26 mmol/L (22-29); Chloride 100 mmol/L (98-107); Globulin 3.2 g/dL (1.3-4.6); Glomerular Filtration Rate 115.4 mL/min (90-130); Glucose 115 mg/dL (65-115); Osmolality Calculated 282 mOsm/kg (285-295); Potassium 4.1 mmol/L (3.5-5.1); Sodium 136 mmol/L (136-145); Thyroid Stimulating Hormone 3.88 uIU/mL (0.27-4.20); Total Bilirubin 0.3 mg/dL (0.15-1.2); Total Protein 7.1 g/dL (6.6-8.7)
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
[2020-10-24 12:20] LABS: Basophils # 0.1 10^3/uL (0.0-0.1); Basophils % 0.7 %; Eosinophils # 0.4 10^3/uL (0.0-0.8); Eosinophils % 3.8 %; Hematocrit 41.2 % (42.0-52.0); Hemoglobin 13.6 g/dL (11.7-16.6); Lymphocytes # 2.1 10^3/uL (0.8-4.8); Lymphocytes % 21.7 %; Mean Corpuscular Hemoglobin 31.6 pg (28.0-34.0); Mean Corpuscular Volume 95.6 fL (80-94); Mean Platelet Volume 8.7 fL (7.4-10.4); Monocytes # 0.8 10^3/uL (0.2-0.9); Monocytes % 7.9 %; Neutrophils # 6.39 10^3/uL (1.8-7.7); Neutrophils % 65.4 %; Nucleated Red Blood Cells % 0 %; Platelet Count 230 10^3/cmm (130-400); Red Blood Count 4.31 10^6/uL (4.1-5.3); Red Cell Distribution Width 12.4 % (12.1-15.1); White Blood Count 9.8 10^3/uL (4.0-10.0)
[2020-10-24 13:04] LABS: Alanine Aminotransferase 10 U/L (0-41); Albumin Level 3.7 g/dL (3.5-5.2); Alkaline Phosphatase 95 IU/L (40-130); Anion Gap 13.2 (5-19); Aspartate Amino Transferase 12 U/L (0-40); Blood Urea Nitrogen 6 mg/dL (6-20); Calcium 9.3 mg/dL (8.5-10.5); Carbon Dioxide 28 mmol/L (22-29); Chloride 98 mmol/L (98-107); Globulin 3.3 g/dL (1.3-4.6); Glomerular Filtration Rate 98.9 mL/min (90-130); Glucose 101 mg/dL (65-115); Lactate Dehydrogenase 110 U/L (135-225); Osmolality Calculated 278 mOsm/kg (285-295); Potassium 4.2 mmol/L (3.5-5.1); Sodium 135 mmol/L (136-145); Total Bilirubin 0.2 mg/dL (0.15-1.2)
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
== END 2020-10-25 23:59 | disposition home or self-care (01) ==
LOC: ONCMED 11:57
PROVIDERS: Internal Medicine Hematology & Oncology; Visit Provider Nurse Practitioner
DX: Z51.12 Encounter for antineoplastic immunotherapy (principal); C34.91 Malignant neoplasm of unspecified part of right bronchus or lung; C34.92 Malignant neoplasm of unspecified part of left bronchus or lung; R04.2 Hemoptysis; J43.9 Emphysema, unspecified; F17.210 Nicotine dependence, cigarettes, uncomplicated; G47.30 Sleep apnea, unspecified; Z51.81 Encounter for therapeutic drug level monitoring; Z79.899 Other long term (current) drug therapy; Z86.010 Personal history of colon polyps
CPT/HCPCS: 80053; 83615; 84443; 85025; 96413; 99214; J7050; J9271

== ENCOUNTER 2020-11-14 08:54 | Outpatient (RCR) | payer OTHER, SELFPAY ==
[2020-11-14 09:43] LABS: Basophils % 0.4 %; Eosinophils # 0.3 10^3/uL (0.0-0.8); Eosinophils % 3.1 %; Hematocrit 41.6 % (42.0-52.0); Hemoglobin 13.6 g/dL (11.7-16.6); Lymphocytes # 1.9 10^3/uL (0.8-4.8); Mean Corpuscular HGB Conc 32.7 g/dL (30.0-36.0); Mean Corpuscular Hemoglobin 31.4 pg (28.0-34.0); Mean Corpuscular Volume 96.1 fL (80-94); Mean Platelet Volume 8.8 fL (7.4-10.4); Monocytes # 0.7 10^3/uL (0.2-0.9); Monocytes % 6.9 %; Neutrophils # 7.14 10^3/uL (1.8-7.7); Neutrophils % 70.1 %; Nucleated Red Blood Cells % 0 %; Platelet Count 235 10^3/cmm (130-400); Red Blood Count 4.33 10^6/uL (4.1-5.3); Red Cell Distribution Width 12.4 % (12.1-15.1); White Blood Count 10.2 10^3/uL (4.0-10.0)
[2020-11-14 10:29] LABS: Alanine Aminotransferase 10 U/L (0-41); Albumin Level 3.7 g/dL (3.5-5.2); Alkaline Phosphatase 96 IU/L (40-130); Anion Gap 15.9 (5-19); Aspartate Amino Transferase 10 U/L (0-40); Blood Urea Nitrogen 8 mg/dL (6-20); Calcium 9.5 mg/dL (8.5-10.5); Carbon Dioxide 26 mmol/L (22-29); Chloride 96 mmol/L (98-107); Globulin 3.6 g/dL (1.3-4.6); Glomerular Filtration Rate 115.4 mL/min (90-130); Glucose 114 mg/dL (65-115); Osmolality Calculated 277 mOsm/kg (285-295); Potassium 3.9 mmol/L (3.5-5.1); Sodium 134 mmol/L (136-145); Thyroid Stimulating Hormone 4.19 uIU/mL (0.27-4.20); Total Bilirubin 0.3 mg/dL (0.15-1.2); Total Protein 7.3 g/dL (6.6-8.7)
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
== END 2020-11-25 23:59 | disposition home or self-care (01) ==
LOC: ONCMED 08:54
PROVIDERS: Visit Provider Nurse Practitioner
DX: Z51.12 Encounter for antineoplastic immunotherapy (principal); C34.91 Malignant neoplasm of unspecified part of right bronchus or lung; C34.92 Malignant neoplasm of unspecified part of left bronchus or lung; C78.7 Secondary malignant neoplasm of liver and intrahepatic bile duct; J18.9 Pneumonia, unspecified organism; G47.33 Obstructive sleep apnea (adult) (pediatric); R04.2 Hemoptysis; Z79.899 Other long term (current) drug therapy
CPT/HCPCS: 80053; 84443; 85025; 96413; 99215; J7050; J9271

== ENCOUNTER 2020-12-05 05:45 | Outpatient (RCR) | payer OTHER, SELFPAY ==
[2020-12-05] MEDS: alteplase 1 mg/mL SDV 2 mL 2 MG IV (08:35)
[2020-12-05 09:04] LABS: Basophils # 0.1 10^3/uL (0.0-0.1); Basophils % 0.5 %; Eosinophils # 0.2 10^3/uL (0.0-0.8); Eosinophils % 2.2 %; Hematocrit 38.9 % (42.0-52.0); Lymphocytes # 1.5 10^3/uL (0.8-4.8); Lymphocytes % 15.4 %; Mean Corpuscular HGB Conc 33.4 g/dL (30.0-36.0); Mean Corpuscular Hemoglobin 31.3 pg (28.0-34.0); Mean Corpuscular Volume 93.5 fL (80-94); Mean Platelet Volume 8.9 fL (7.4-10.4); Monocytes # 0.8 10^3/uL (0.2-0.9); Monocytes % 8.6 %; Neutrophils # 7.05 10^3/uL (1.8-7.7); Neutrophils % 72.6 %; Nucleated Red Blood Cells % 0 %; Platelet Count 232 10^3/cmm (130-400); Red Blood Count 4.16 10^6/uL (4.1-5.3); White Blood Count 9.7 10^3/uL (4.0-10.0)
[2020-12-05 09:20] LABS: Alanine Aminotransferase 13 U/L (0-41); Albumin Level 3.7 g/dL (3.5-5.2); Alkaline Phosphatase 93 IU/L (40-130); Anion Gap 10.9 (5-19); Aspartate Amino Transferase 11 U/L (0-40); Blood Urea Nitrogen 7 mg/dL (6-20); Calcium 9.5 mg/dL (8.5-10.5); Carbon Dioxide 29 mmol/L (22-29); Chloride 99 mmol/L (98-107); Globulin 3.5 g/dL (1.3-4.6); Glomerular Filtration Rate 137.9 mL/min (90-130); Glucose 98 mg/dL (65-115); Osmolality Calculated 278 mOsm/kg (285-295); Potassium 3.9 mmol/L (3.5-5.1); Sodium 135 mmol/L (136-145); Thyroid Stimulating Hormone 4.31 uIU/mL (0.27-4.20); Total Bilirubin 0.2 mg/dL (0.15-1.2); Total Protein 7.2 g/dL (6.6-8.7)
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
== END 2020-12-23 23:59 | disposition home or self-care (01) ==
LOC: ONCMED 05:45
PROVIDERS: Visit Provider Internal Medicine Hematology & Oncology
DX: Z51.12 Encounter for antineoplastic immunotherapy (principal); C34.91 Malignant neoplasm of unspecified part of right bronchus or lung; C34.92 Malignant neoplasm of unspecified part of left bronchus or lung; C78.7 Secondary malignant neoplasm of liver and intrahepatic bile duct; J18.9 Pneumonia, unspecified organism; J43.9 Emphysema, unspecified; G47.33 Obstructive sleep apnea (adult) (pediatric); R04.2 Hemoptysis; E03.9 Hypothyroidism, unspecified; Z79.899 Other long term (current) drug therapy; Z92.3 Personal history of irradiation
CPT/HCPCS: 36415; 36593; 80053; 84443; 85025; 96375; 96413; 99214; J2997; J7050; J9271

== ENCOUNTER 2021-01-21 05:19 | Outpatient (RCR) | payer OTHER, SELFPAY ==
[2020-12-26 09:38] LABS: Basophils # 0.1 10^3/uL (0.0-0.1); Basophils % 0.5 %; Eosinophils # 0.2 10^3/uL (0.0-0.8); Eosinophils % 1.9 %; Hematocrit 38.9 % (42.0-52.0); Lymphocytes # 1.8 10^3/uL (0.8-4.8); Lymphocytes % 16.5 %; Mean Corpuscular HGB Conc 33.4 g/dL (30.0-36.0); Mean Corpuscular Hemoglobin 31.3 pg (28.0-34.0); Mean Corpuscular Volume 93.5 fL (80-94); Mean Platelet Volume 8.8 fL (7.4-10.4); Monocytes # 0.9 10^3/uL (0.2-0.9); Monocytes % 7.9 %; Neutrophils # 7.84 10^3/uL (1.8-7.7); Neutrophils % 72.6 %; Nucleated Red Blood Cells % 0 %; Platelet Count 271 10^3/cmm (130-400); Red Blood Count 4.16 10^6/uL (4.1-5.3); White Blood Count 10.8 10^3/uL (4.0-10.0)
[2020-12-26 09:56] LABS: Alanine Aminotransferase 11 U/L (0-41); Albumin Level 3.7 g/dL (3.5-5.2); Alkaline Phosphatase 87 IU/L (40-130); Aspartate Amino Transferase 11 U/L (0-40); Blood Urea Nitrogen 12 mg/dL (6-20); Calcium 9.7 mg/dL (8.5-10.5); Carbon Dioxide 29 mmol/L (22-29); Chloride 98 mmol/L (98-107); Globulin 3.8 g/dL (1.3-4.6); Glomerular Filtration Rate 115.4 mL/min (90-130); Glucose 103 mg/dL (65-115); Osmolality Calculated 278 mOsm/kg (285-295); Sodium 134 mmol/L (136-145); Thyroid Stimulating Hormone 2.49 uIU/mL (0.27-4.20); Total Bilirubin 0.4 mg/dL (0.15-1.2); Total Protein 7.5 g/dL (6.6-8.7)
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
[2021-01-17] MEDS: alteplase 1 mg/mL SDV 2 mL 2 MG INTRACATH (13:13)
[2021-01-17 14:09] LABS: Basophils # 0.1 10^3/uL (0.0-0.1); Basophils % 0.6 %; Eosinophils # 0.1 10^3/uL (0.0-0.8); Eosinophils % 0.6 %; Hematocrit 36.5 % (42.0-52.0); Hemoglobin 11.9 g/dL (11.7-16.6); Lymphocytes % 17.1 %; Mean Corpuscular HGB Conc 32.6 g/dL (30.0-36.0); Mean Corpuscular Hemoglobin 30.1 pg (28.0-34.0); Mean Corpuscular Volume 92.2 fL (80-94); Mean Platelet Volume 8.7 fL (7.4-10.4); Monocytes % 8.4 %; Neutrophils # 8.44 10^3/uL (1.8-7.7); Neutrophils % 72.6 %; Nucleated Red Blood Cells % 0 %; Platelet Count 296 10^3/cmm (130-400); Red Blood Count 3.96 10^6/uL (4.1-5.3); Red Cell Distribution Width 12.1 % (12.1-15.1); White Blood Count 11.6 10^3/uL (4.0-10.0)
[2021-01-17 14:34] LABS: Alanine Aminotransferase 14 U/L (0-41); Albumin Level 3.6 g/dL (3.5-5.2); Alkaline Phosphatase 86 IU/L (40-130); Anion Gap 13.9 (5-19); Aspartate Amino Transferase 12 U/L (0-40); Blood Urea Nitrogen 11 mg/dL (6-20); Calcium 8.8 mg/dL (8.5-10.5); Carbon Dioxide 26 mmol/L (22-29); Chloride 98 mmol/L (98-107); Globulin 3.7 g/dL (1.3-4.6); Glomerular Filtration Rate 137.9 mL/min (90-130); Glucose 93 mg/dL (65-115); Osmolality Calculated 277 mOsm/kg (285-295); Potassium 3.9 mmol/L (3.5-5.1); Sodium 134 mmol/L (136-145); Total Bilirubin 0.2 mg/dL (0.15-1.2); Total Protein 7.3 g/dL (6.6-8.7)
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
== END 2021-01-23 23:59 | disposition home or self-care (01) ==
LOC: ONCMED 05:19
PROVIDERS: Nurse Practitioner; Visit Provider Internal Medicine Hematology & Oncology
DX: Z51.12 Encounter for antineoplastic immunotherapy (principal); C34.91 Malignant neoplasm of unspecified part of right bronchus or lung; C34.92 Malignant neoplasm of unspecified part of left bronchus or lung; C78.7 Secondary malignant neoplasm of liver and intrahepatic bile duct; J18.9 Pneumonia, unspecified organism; J44.9 Chronic obstructive pulmonary disease, unspecified; I25.10 Atherosclerotic heart disease of native coronary artery without angina pectoris; E78.5 Hyperlipidemia, unspecified; G47.33 Obstructive sleep apnea (adult) (pediatric); Z79.52 Long term (current) use of systemic steroids; Z79.2 Long term (current) use of antibiotics; Z79.899 Other long term (current) drug therapy
CPT/HCPCS: 36591; 80053; 84443; 85025; 96413; 99214; J2997; J7050; J9271

== ENCOUNTER 2021-02-12 12:47 | Outpatient (CLI) | payer OTHER, SELFPAY ==
--- NOTE | 2021-02-12 12:54 | XRR_ITS ---
PROCEDURE INFORMATION: Exam: XR Chest Exam date and time: 02/12/2021 1:24 PM Age: 60 years old Clinical indication: Shortness of breath; Prior surgery; Surgery type: Port; Additional info: Lung cancer/increased shortness of breath TECHNIQUE: Imaging protocol: XR of the chest. Views: 2 views. COMPARISON: CR XR chest 1V portable [id number] 11/11/2019 9:51 AM FINDINGS: Tubes, catheters and devices: There is a right subclavian catheter whose tip is in the superior vena cava. Lungs: There is opacification in the left upper lung. There is lung emphysema. No new areas of lung consolidation. Pleural spaces: Unremarkable. No pleural effusion. No pneumothorax. Heart/Mediastinum: Unremarkable. No cardiomegaly. Bones/joints: Unremarkable. XR/XR chest 2V* [id number] IMPRESSION: There are no acute concerning abnormalities.
== END 2021-02-12 12:48 | disposition home or self-care (01) ==
LOC: RAD 12:49
PROVIDERS: Visit Provider Nurse Practitioner
DX: C34.91 Malignant neoplasm of unspecified part of right bronchus or lung (principal); C34.92 Malignant neoplasm of unspecified part of left bronchus or lung; R06.02 Shortness of breath
CPT/HCPCS: 71046

== ENCOUNTER 2021-02-21 07:48 | Outpatient (RCR) | payer OTHER, SELFPAY ==
[2021-02-12] MEDS: alteplase 1 mg/mL SDV 2 mL 2 MG IV (11:41)
[2021-02-12 12:29] LABS: Basophils # 0.1 10^3/uL (0.0-0.1); Basophils % 0.4 %; Eosinophils # 0.1 10^3/uL (0.0-0.8); Eosinophils % 0.6 %; Lymphocytes # 1.7 10^3/uL (0.8-4.8); Lymphocytes % 14.1 %; Mean Corpuscular HGB Conc 32.4 g/dL (30.0-36.0); Mean Corpuscular Hemoglobin 29.4 pg (28.0-34.0); Mean Corpuscular Volume 90.7 fL (80-94); Mean Platelet Volume 8.8 fL (7.4-10.4); Monocytes # 0.9 10^3/uL (0.2-0.9); Neutrophils # 9.42 10^3/uL (1.8-7.7); Neutrophils % 77.2 %; Nucleated Red Blood Cells % 0 %; Platelet Count 292 10^3/cmm (130-400); Red Blood Count 4.08 10^6/uL (4.1-5.3); Red Cell Distribution Width 12.6 % (12.1-15.1); White Blood Count 12.2 10^3/uL (4.0-10.0)
[2021-02-12 12:49] LABS: Alanine Aminotransferase 17 U/L (0-41); Albumin Level 3.5 g/dL (3.5-5.2); Alkaline Phosphatase 85 IU/L (40-130); Anion Gap 12.9 (5-19); Aspartate Amino Transferase 12 U/L (0-40); Blood Urea Nitrogen 8 mg/dL (6-20); Calcium 9.1 mg/dL (8.5-10.5); Carbon Dioxide 27 mmol/L (22-29); Chloride 96 mmol/L (98-107); Globulin 3.8 g/dL (1.3-4.6); Glomerular Filtration Rate 137.9 mL/min (90-130); Glucose 110 mg/dL (65-115); Osmolality Calculated 273 mOsm/kg (285-295); Potassium 3.9 mmol/L (3.5-5.1); Sodium 132 mmol/L (136-145); Total Bilirubin 0.5 mg/dL (0.15-1.2); Total Protein 7.3 g/dL (6.6-8.7)
--- NOTE | 2021-02-13 13:16 | CT_ITS ---
WS: [id number] CT CHEST ANGIOGRAPHY WITH REFORMATS HISTORY: SHORTNESS OF BREATH, HEMOPTYSIS, history of lung cancer. TECHNIQUE: Contiguous axial images are obtained through the chest during arterial injection of intrav enous contrast. Images are reconstructed to evaluate the pulmonary arteries. MIP imaging also reviewe d. All CT scans at [facility] use at least one of these dose optimization techniques: aut omated exposure control; mA and/or kV adjustment per patient size (includes targeted exams where dose is matched to clinical indication); or iterative reconstruction. CONTRAST: Omnipaque 350; 95 mL IV. DLP: 902.78 mGycm COMPARISON: 11/11/2019 Good opacification of the pulmonary artery. No pulmonary embolism. Mild narrowing of the LEFT mainste m pulmonary artery. Thoracic aorta is normal. No dissection or aneurysm. Severe bullous emphysema. Volume loss in the LEFT lung. There is a large solid mass centered at the L EFT hilum causing mild narrowing of the proximal LEFT main pulmonary artery and the LEFT upper and lo wer lobe proximal bronchi. Solid mass measures at least 4.1 x 5.0 x 5.2 cm. There is postobstructive atelectasis in the LEFT upper lobe. Slight volume loss and shift of the mediastinal structures to the LEFT. There is a LEFT hilar lymph node measuring 13 mm. Smaller but several periaortic lymph nodes. Subcarinal lymph node measures 15 mm. Heart size is normal. 8mm nodule with pleural tagging in the posterior RIGHT upper lobe not significantly changed. There is a new nodule measuring 5 mm along the short fissure. Small hiatal hernia. Mild tricuspid regurgitation into hepatic veins. No adrenal mass. Visualized liver is negative. No osteoblastic or osteolytic bone disease. Mild anterior wedging of T6 and T7. CT/CT angio chest PE protcl [id number] IMPRESSION: 1. Dense area of consolidation at the LEFT hilum highly suspicious for neoplas tic mass causing mild narrowing and obstruction of the bronchovascular structur es at the LEFT hilum. Mass measures 4.1 x 5.0 x 5.2 cm with postobstructive ate lectasis. 2. LEFT hilar and subcarinal lymphadenopathy. Smaller lymph nodes in the peria ortic region. 3. Severe bullous emphysema. 4. New 5 mm nodule along the minor fissure may be a metastatic site. 5. No adrenal mass.
[2021-02-13] MEDS: iohexol 350 mg/mL 100 mL Btl IV (13:56)
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
== END 2021-02-22 23:59 | disposition home or self-care (01) ==
LOC: ONCMED 07:48
PROVIDERS: Visit Provider Internal Medicine Hematology & Oncology
DX: C34.91 Malignant neoplasm of unspecified part of right bronchus or lung (principal); C34.92 Malignant neoplasm of unspecified part of left bronchus or lung; C78.7 Secondary malignant neoplasm of liver and intrahepatic bile duct; J18.9 Pneumonia, unspecified organism; R59.0 Localized enlarged lymph nodes; J43.9 Emphysema, unspecified; F17.210 Nicotine dependence, cigarettes, uncomplicated; G47.33 Obstructive sleep apnea (adult) (pediatric); Z79.899 Other long term (current) drug therapy
CPT/HCPCS: 36593; 71275; 80053; 85025; 96374; 99214; J2997; Q9967

== ENCOUNTER 2021-03-15 05:32 | Outpatient (RCR) | payer OTHER, SELFPAY ==
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
[2021-03-15 10:09] LABS: Basophils # 0.1 10^3/uL (0.0-0.1); Basophils % 0.4 %; Eosinophils # 0.1 10^3/uL (0.0-0.8); Eosinophils % 0.3 %; Hematocrit 37.2 % (42.0-52.0); Hemoglobin 11.7 g/dL (11.7-16.6); Lymphocytes # 1.3 10^3/uL (0.8-4.8); Lymphocytes % 8.7 %; Mean Corpuscular HGB Conc 31.5 g/dL (30.0-36.0); Mean Corpuscular Hemoglobin 28.2 pg (28.0-34.0); Mean Corpuscular Volume 89.6 fL (80-94); Mean Platelet Volume 9.1 fL (7.4-10.4); Monocytes # 0.9 10^3/uL (0.2-0.9); Monocytes % 6.3 %; Neutrophils # 12.17 10^3/uL (1.8-7.7); Neutrophils % 83.6 %; Nucleated Red Blood Cells % 0 %; Platelet Count 344 10^3/cmm (130-400); Red Blood Count 4.15 10^6/uL (4.1-5.3); Red Cell Distribution Width 12.9 % (12.1-15.1); White Blood Count 14.6 10^3/uL (4.0-10.0)
[2021-03-15 10:26] LABS: Alanine Aminotransferase 28 U/L (0-41); Albumin Level 3.2 g/dL (3.5-5.2); Alkaline Phosphatase 94 IU/L (40-130); Anion Gap 13.1 (5-19); Aspartate Amino Transferase 19 U/L (0-40); Blood Urea Nitrogen 7 mg/dL (6-20); Calcium 9.1 mg/dL (8.5-10.5); Carbon Dioxide 29 mmol/L (22-29); Chloride 96 mmol/L (98-107); Globulin 4.1 g/dL (1.3-4.6); Glomerular Filtration Rate 137.9 mL/min (90-130); Glucose 105 mg/dL (65-115); Osmolality Calculated 276 mOsm/kg (285-295); Potassium 4.1 mmol/L (3.5-5.1); Sodium 134 mmol/L (136-145); Total Bilirubin 0.3 mg/dL (0.15-1.2); Total Protein 7.3 g/dL (6.6-8.7)
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
== END 2021-03-25 23:59 | disposition home or self-care (01) ==
LOC: ONCMED 05:32
PROVIDERS: Visit Provider Internal Medicine Hematology & Oncology
DX: C34.01 Malignant neoplasm of right main bronchus (principal); R91.1 Solitary pulmonary nodule; J43.9 Emphysema, unspecified; G47.33 Obstructive sleep apnea (adult) (pediatric); R04.2 Hemoptysis; I26.99 Other pulmonary embolism without acute cor pulmonale; J18.9 Pneumonia, unspecified organism; Z79.2 Long term (current) use of antibiotics; Z79.52 Long term (current) use of systemic steroids; Z79.899 Other long term (current) drug therapy; Z92.21 Personal history of antineoplastic chemotherapy
CPT/HCPCS: 36415; 80053; 85025; 99214

== ENCOUNTER 2021-04-23 05:34 | Outpatient (RCR) | payer OTHER, SELFPAY ==
[2021-03-26] MEDS: sodium chlor 0.9% + KCl 20 mEq 20 MEQ/1,000 ML BAG 999 MEQ IV (09:25)
[2021-03-26 10:05] LABS: Basophils # 0.1 10^3/uL (0.0-0.1); Basophils % 0.4 %; Eosinophils % 0.2 %; Hematocrit 35.7 % (42.0-52.0); Hemoglobin 11.2 g/dL (11.7-16.6); Lymphocytes # 1.6 10^3/uL (0.8-4.8); Mean Corpuscular HGB Conc 31.4 g/dL (30.0-36.0); Mean Corpuscular Hemoglobin 27.8 pg (28.0-34.0); Mean Corpuscular Volume 88.6 fL (80-94); Mean Platelet Volume 9.2 fL (7.4-10.4); Monocytes % 6.3 %; Neutrophils # 13.28 10^3/uL (1.8-7.7); Neutrophils % 82.4 %; Nucleated Red Blood Cells % 0 %; Platelet Count 360 10^3/cmm (130-400); Red Blood Count 4.03 10^6/uL (4.1-5.3); Red Cell Distribution Width 13.2 % (12.1-15.1); White Blood Count 16.1 10^3/uL (4.0-10.0)
[2021-03-26 10:22] LABS: Alanine Aminotransferase 22 U/L (0-41); Albumin Level 3.3 g/dL (3.5-5.2); Alkaline Phosphatase 113 IU/L (40-130); Anion Gap 15.4 (5-19); Aspartate Amino Transferase 18 U/L (0-40); Blood Urea Nitrogen 6 mg/dL (6-20); Calcium 9.2 mg/dL (8.5-10.5); Carbon Dioxide 27 mmol/L (22-29); Chloride 97 mmol/L (98-107); Globulin 3.7 g/dL (1.3-4.6); Glomerular Filtration Rate 170.2 mL/min (90-130); Glucose 100 mg/dL (65-115); Osmolality Calculated 278 mOsm/kg (285-295); Potassium 4.4 mmol/L (3.5-5.1); Sodium 135 mmol/L (136-145); Total Bilirubin 0.4 mg/dL (0.15-1.2)
[2021-03-26] MEDS: palonosetron 0.25 mg/5 mL SDV IV (11:22)
[2021-03-26] MEDS: sodium chloride 0.9% 250 ML 40 ML IV (11:22)
[2021-03-26] MEDS: fosaprepitant 150 MG in sodium chloride 0.9% 150 ML 300 MG IV (11:41)
[2021-03-26 12:42] VITALS: RESP 20; O2SAT 96
[2021-03-26] MEDS: morphine 4 mg/mL SDV 1 mL IV (12:42)
[2021-03-26] MEDS: potassium chloride 20 MEQ in sodium chloride 0.9% 500 ML 500 MEQ IV (13:42)
[2021-03-26] MEDS: FUROsemide 10 mg/mL SDV 2mL 20 MG IV (13:42)
[2021-04-10] MEDS: alteplase 1 mg/mL SDV 2 mL 2 MG IV (10:15)
[2021-04-10 10:38] LABS: Basophils % 0.5 %; Eosinophils # 0.1 10^3/uL (0.0-0.8); Eosinophils % 0.8 %; Hematocrit 35.3 % (42.0-52.0); Hemoglobin 11.1 g/dL (11.7-16.6); Lymphocytes # 1.2 10^3/uL (0.8-4.8); Lymphocytes % 18.7 %; Mean Corpuscular HGB Conc 31.4 g/dL (30.0-36.0); Mean Corpuscular Hemoglobin 27.5 pg (28.0-34.0); Mean Corpuscular Volume 87.6 fL (80-94); Mean Platelet Volume 9.8 fL (7.4-10.4); Monocytes # 0.6 10^3/uL (0.2-0.9); Monocytes % 8.7 %; Neutrophils # 4.61 10^3/uL (1.8-7.7); Neutrophils % 70.4 %; Nucleated Red Blood Cells % 0 %; Platelet Count 219 10^3/cmm (130-400); Red Blood Count 4.03 10^6/uL (4.1-5.3); White Blood Count 6.5 10^3/uL (4.0-10.0)
[2021-04-10 11:09] LABS: Alanine Aminotransferase 10 U/L (0-41); Albumin Level 3.1 g/dL (3.5-5.2); Alkaline Phosphatase 87 IU/L (40-130); Anion Gap 14.3 (5-19); Aspartate Amino Transferase 11 U/L (0-40); Blood Urea Nitrogen 6 mg/dL (6-20); Calcium 9.1 mg/dL (8.5-10.5); Carbon Dioxide 25 mmol/L (22-29); Chloride 95 mmol/L (98-107); Globulin 3.5 g/dL (1.3-4.6); Glomerular Filtration Rate 220.2 mL/min (90-130); Glucose 123 mg/dL (65-115); Osmolality Calculated 269 mOsm/kg (285-295); Potassium 4.3 mmol/L (3.5-5.1); Sodium 130 mmol/L (136-145); Total Bilirubin 0.3 mg/dL (0.15-1.2); Total Protein 6.6 g/dL (6.6-8.7)
[2021-04-15 16:18] LABS: Basophils # 0.1 10^3/uL (0.0-0.1); Basophils % 0.5 %; Eosinophils % 0.1 %; Hematocrit 36.5 % (42.0-52.0); Hemoglobin 11.4 g/dL (11.7-16.6); Lymphocytes # 1.4 10^3/uL (0.8-4.8); Lymphocytes % 9.2 %; Mean Corpuscular HGB Conc 31.2 g/dL (30.0-36.0); Mean Corpuscular Hemoglobin 27.5 pg (28.0-34.0); Mean Platelet Volume 9.7 fL (7.4-10.4); Monocytes % 6.7 %; Neutrophils # 12.11 10^3/uL (1.8-7.7); Neutrophils % 79.4 %; Nucleated Red Blood Cells % 0 %; Platelet Count 282 10^3/cmm (130-400); Red Blood Count 4.15 10^6/uL (4.1-5.3); Red Cell Distribution Width 15.4 % (12.1-15.1); White Blood Count 15.2 10^3/uL (4.0-10.0)
[2021-04-15 16:47] LABS: Alanine Aminotransferase 22 U/L (0-41); Albumin Level 3.3 g/dL (3.5-5.2); Alkaline Phosphatase 96 IU/L (40-130); Anion Gap 15.1 (5-19); Aspartate Amino Transferase 16 U/L (0-40); Blood Urea Nitrogen 10 mg/dL (6-20); Calcium 8.6 mg/dL (8.5-10.5); Carbon Dioxide 27 mmol/L (22-29); Chloride 95 mmol/L (98-107); Globulin 3.3 g/dL (1.3-4.6); Glomerular Filtration Rate 170.2 mL/min (90-130); Glucose 130 mg/dL (65-115); Osmolality Calculated 277 mOsm/kg (285-295); Potassium 4.1 mmol/L (3.5-5.1); Sodium 133 mmol/L (136-145); Total Bilirubin 0.2 mg/dL (0.15-1.2); Total Protein 6.6 g/dL (6.6-8.7)
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
[2021-04-16] MEDS: palonosetron 0.25 mg/5 mL SDV IV (11:25)
[2021-04-16] MEDS: fosaprepitant 150 MG in sodium chloride 0.9% 150 ML 300 MG IV (11:43)
[2021-04-16] MEDS: FUROsemide 10 mg/mL SDV 2mL 20 MG IV (13:52)
[2021-04-16] MEDS: potassium chloride 20 MEQ in sodium chloride 0.9% 500 ML 500 MEQ IV (13:53)
[2021-04-22] MEDS: alteplase 1 mg/mL SDV 2 mL 2 MG IV (15:22)
[2021-04-22 16:08] LABS: Basophils # 0.1 10^3/uL (0.0-0.1); Basophils % 0.5 %; Hematocrit 36.4 % (42.0-52.0); Hemoglobin 11.6 g/dL (11.7-16.6); Lymphocytes # 0.6 10^3/uL (0.8-4.8); Mean Corpuscular HGB Conc 31.9 g/dL (30.0-36.0); Mean Corpuscular Hemoglobin 27.6 pg (28.0-34.0); Mean Corpuscular Volume 86.7 fL (80-94); Mean Platelet Volume 9.9 fL (7.4-10.4); Monocytes # 0.2 10^3/uL (0.2-0.9); Monocytes % 1.9 %; Neutrophils # 11.35 10^3/uL (1.8-7.7); Neutrophils % 91.2 %; Nucleated Red Blood Cells % 0 %; Platelet Count 157 10^3/cmm (130-400); Red Cell Distribution Width 15.6 % (12.1-15.1); White Blood Count 12.4 10^3/uL (4.0-10.0)
[2021-04-22 16:39] LABS: Alanine Aminotransferase 15 U/L (0-41); Albumin Level 3.3 g/dL (3.5-5.2); Alkaline Phosphatase 80 IU/L (40-130); Anion Gap 16.8 (5-19); Aspartate Amino Transferase 12 U/L (0-40); Blood Urea Nitrogen 11 mg/dL (6-20); Carbon Dioxide 25 mmol/L (22-29); Chloride 95 mmol/L (98-107); Glomerular Filtration Rate 220.2 mL/min (90-130); Glucose 147 mg/dL (65-115); Osmolality Calculated 278 mOsm/kg (285-295); Potassium 3.8 mmol/L (3.5-5.1); Sodium 133 mmol/L (136-145); Total Bilirubin 0.3 mg/dL (0.15-1.2); Total Protein 6.3 g/dL (6.6-8.7)
[2021-04-23] MEDS: palonosetron 0.25 mg/5 mL SDV IV (09:02)
[2021-04-23] MEDS: sodium chloride 0.9% 250 ML 30 ML IV (09:02)
[2021-04-23] MEDS: fosaprepitant 150 MG in sodium chloride 0.9% 150 ML 300 MG IV (11:27)
[2021-04-23] MEDS: FUROsemide 10 mg/mL SDV 2mL 20 MG IV (13:22)
[2021-04-23] MEDS: potassium chloride 20 MEQ in sodium chloride 0.9% 500 ML 500 MEQ IV (13:23)
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
== END 2021-04-24 23:59 | disposition home or self-care (01) ==
LOC: ONCMED 05:34
PROVIDERS: Internal Medicine Hematology & Oncology; Visit Provider Nurse Practitioner
DX: Z51.11 Encounter for antineoplastic chemotherapy (principal); C34.01 Malignant neoplasm of right main bronchus; C78.02 Secondary malignant neoplasm of left lung; C77.8 Secondary and unspecified malignant neoplasm of lymph nodes of multiple regions; J43.9 Emphysema, unspecified; I25.10 Atherosclerotic heart disease of native coronary artery without angina pectoris; G47.33 Obstructive sleep apnea (adult) (pediatric); E78.5 Hyperlipidemia, unspecified; R79.89 Other specified abnormal findings of blood chemistry; Z79.899 Other long term (current) drug therapy; Z79.52 Long term (current) use of systemic steroids
CPT/HCPCS: 36415; 36591; 36593; 80053; 85025; 96366; 96367; 96368; 96374; 96375; 96411; 96413; 96415; 96417; 99214; J1100; J1453; J1940; J2270; J2469; J2930; J2997; J3475; J3480; J7030; J7040; J7050; J9060; J9390

== ENCOUNTER 2021-05-15 05:37 | Outpatient (RCR) | payer OTHER, SELFPAY ==
[2021-05-06] MEDS: alteplase 1 mg/mL SDV 2 mL 2 MG IV (15:35)
[2021-05-06 16:03] LABS: Basophils % 0.5 %; Hematocrit 37.1 % (42.0-52.0); Hemoglobin 11.6 g/dL (11.7-16.6); Lymphocytes # 0.8 10^3/uL (0.8-4.8); Mean Corpuscular HGB Conc 31.3 g/dL (30.0-36.0); Mean Corpuscular Hemoglobin 28.5 pg (28.0-34.0); Mean Corpuscular Volume 91.2 fL (80-94); Mean Platelet Volume 11.1 fL (7.4-10.4); Monocytes # 0.4 10^3/uL (0.2-0.9); Monocytes % 6.3 %; Neutrophils # 4.52 10^3/uL (1.8-7.7); Neutrophils % 75.2 %; Nucleated Red Blood Cells % 0 %; Platelet Count 121 10^3/cmm (130-400); Red Blood Count 4.07 10^6/uL (4.1-5.3); Red Cell Distribution Width 20.5 % (12.1-15.1)
[2021-05-06 16:57] LABS: Alanine Aminotransferase 21 U/L (0-41); Albumin Level 3.5 g/dL (3.5-5.2); Alkaline Phosphatase 75 IU/L (40-130); Anion Gap 18.9 (5-19); Aspartate Amino Transferase 14 U/L (0-40); Blood Urea Nitrogen 8 mg/dL (6-20); Calcium 8.7 mg/dL (8.5-10.5); Carbon Dioxide 25 mmol/L (22-29); Chloride 95 mmol/L (98-107); Glomerular Filtration Rate 170.2 mL/min (90-130); Glucose 182 mg/dL (65-115); Osmolality Calculated 283 mOsm/kg (285-295); Potassium 3.9 mmol/L (3.5-5.1); Sodium 135 mmol/L (136-145); Total Bilirubin 0.2 mg/dL (0.15-1.2); Total Protein 6.5 g/dL (6.6-8.7)
[2021-05-07] MEDS: sodium chloride 0.9% 250 ML 600 ML IV (10:05)
[2021-05-07] MEDS: palonosetron 0.25 mg/5 mL SDV IV (11:50)
[2021-05-07] MEDS: fosaprepitant 150 MG in sodium chloride 0.9% 150 ML 300 MG IV (12:06)
[2021-05-07] MEDS: potassium chloride 20 MEQ in sodium chloride 0.9% 500 ML 500 MEQ IV (14:06)
[2021-05-07] MEDS: FUROsemide 10 mg/mL SDV 2mL 20 MG IV (14:06)
[2021-05-14] MEDS: alteplase 1 mg/mL SDV 2 mL 2 MG IV (14:05)
[2021-05-14 14:29] LABS: Basophils % 0.5 %; Hemoglobin 11.8 g/dL (11.7-16.6); Lymphocytes % 11.5 %; Mean Corpuscular HGB Conc 31.9 g/dL (30.0-36.0); Mean Corpuscular Hemoglobin 28.9 pg (28.0-34.0); Mean Corpuscular Volume 90.5 fL (80-94); Mean Platelet Volume 11.2 fL (7.4-10.4); Monocytes # 0.3 10^3/uL (0.2-0.9); Monocytes % 3.2 %; Neutrophils % 83.3 %; Nucleated Red Blood Cells % 0 %; Platelet Count 86 10^3/cmm (130-400); Red Blood Count 4.09 10^6/uL (4.1-5.3); Red Cell Distribution Width 19.5 % (12.1-15.1); White Blood Count 8.8 10^3/uL (4.0-10.0)
[2021-05-14 14:56] LABS: Alanine Aminotransferase 33 U/L (0-41); Albumin Level 3.5 g/dL (3.5-5.2); Alkaline Phosphatase 85 IU/L (40-130); Aspartate Amino Transferase 22 U/L (0-40); Blood Urea Nitrogen 8 mg/dL (6-20); Calcium 8.5 mg/dL (8.5-10.5); Carbon Dioxide 27 mmol/L (22-29); Chloride 92 mmol/L (98-107); Globulin 2.7 g/dL (1.3-4.6); Glomerular Filtration Rate 170.2 mL/min (90-130); Glucose 158 mg/dL (65-115); Osmolality Calculated 278 mOsm/kg (285-295); Sodium 133 mmol/L (136-145); Total Bilirubin 0.2 mg/dL (0.15-1.2); Total Protein 6.2 g/dL (6.6-8.7)
[2021-05-15] MEDS: sodium chloride 0.9% 250 ML 75 ML IV (12:24)
[2021-05-15] MEDS: palonosetron 0.25 mg/5 mL SDV IV (12:24)
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
== END 2021-05-25 23:59 | disposition home or self-care (01) ==
LOC: ONCMED 05:37
PROVIDERS: Nurse Practitioner; Visit Provider Internal Medicine Hematology & Oncology
DX: Z51.11 Encounter for antineoplastic chemotherapy (principal); C34.91 Malignant neoplasm of unspecified part of right bronchus or lung; C34.92 Malignant neoplasm of unspecified part of left bronchus or lung; C78.7 Secondary malignant neoplasm of liver and intrahepatic bile duct; J18.9 Pneumonia, unspecified organism; J43.9 Emphysema, unspecified; G47.33 Obstructive sleep apnea (adult) (pediatric); R04.2 Hemoptysis; I26.99 Other pulmonary embolism without acute cor pulmonale; Z79.899 Other long term (current) drug therapy; Z92.3 Personal history of irradiation
CPT/HCPCS: 36415; 36593; 80053; 84443; 85025; 96366; 96367; 96374; 96375; 96413; 96417; 99215; J1100; J1453; J1940; J2469; J2997; J3475; J3480; J7030; J7040; J7050; J9060; J9390

== ENCOUNTER 2021-06-24 05:34 | Outpatient (RCR) | payer OTHER, SELFPAY ==
[2021-05-28 14:03] LABS: Hematocrit 36.9 % (42.0-52.0); Hemoglobin 11.6 g/dL (11.7-16.6); Mean Corpuscular HGB Conc 31.4 g/dL (30.0-36.0); Mean Corpuscular Hemoglobin 29.7 pg (28.0-34.0); Mean Corpuscular Volume 94.6 fL (80-94); Mean Platelet Volume 9.9 fL (7.4-10.4); Platelet Count 214 10^3/cmm (130-400); Red Cell Distribution Width 23.5 % (12.1-15.1); White Blood Count 10.3 10^3/uL (4.0-10.0)
[2021-05-28 14:21] LABS: Alanine Aminotransferase 19 U/L (0-41); Albumin Level 3.6 g/dL (3.5-5.2); Alkaline Phosphatase 77 IU/L (40-130); Anion Gap 16.1 (5-19); Aspartate Amino Transferase 16 U/L (0-40); Blood Urea Nitrogen 7 mg/dL (6-20); Calcium 8.2 mg/dL (8.5-10.5); Carbon Dioxide 29 mmol/L (22-29); Chloride 95 mmol/L (98-107); Globulin 2.5 g/dL (1.3-4.6); Glomerular Filtration Rate 170.2 mL/min (90-130); Glucose 129 mg/dL (65-115); Osmolality Calculated 282 mOsm/kg (285-295); Potassium 4.1 mmol/L (3.5-5.1); Sodium 136 mmol/L (136-145); Total Bilirubin 0.2 mg/dL (0.15-1.2); Total Protein 6.1 g/dL (6.6-8.7)
[2021-05-28 15:21] LABS: Slide Review Slide Review Perform
[2021-05-28 15:23] LABS: Total Cells Counted 100 (0-100)
[2021-05-28 15:24] LABS: Absolute Neutrophil 8.2 10^3/cmm (1.4-6.5); Band Neutrophils Absolute 2.3 10^3/cmm (0.0-1.2); Eosinophils 0 %; Lymphocytes 6 %; Lymphocytes Absolute 0.6 10^3/cmm (1.2-3.4); Monocytes Absolute 0.8 10^3/cmm (0.1-0.6); Platelet Estimate Normal (Normal); Segmented Neutrophils 58 %
[2021-05-28 15:25] LABS: Anisocytosis 1+; Giant Platelets Trace; Smudge Cells Trace
[2021-05-28 15:26] LABS: Ovalocytes Trace
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
[2021-06-03 09:11] LABS: Basophils # 0.1 10^3/uL (0.0-0.1); Basophils % 0.5 %; Eosinophils % 0.1 %; Hematocrit 35.5 % (42.0-52.0); Hemoglobin 11.2 g/dL (11.7-16.6); Lymphocytes # 2.1 10^3/uL (0.8-4.8); Lymphocytes % 14.5 %; Mean Corpuscular HGB Conc 31.5 g/dL (30.0-36.0); Mean Corpuscular Hemoglobin 30.6 pg (28.0-34.0); Mean Platelet Volume 9.2 fL (7.4-10.4); Monocytes # 1.1 10^3/uL (0.2-0.9); Monocytes % 7.4 %; Neutrophils # 10.47 10^3/uL (1.8-7.7); Nucleated Red Blood Cells % 0 %; Platelet Count 181 10^3/cmm (130-400); Red Blood Count 3.66 10^6/uL (4.1-5.3); Red Cell Distribution Width 23.5 % (12.1-15.1); White Blood Count 14.3 10^3/uL (4.0-10.0)
[2021-06-03 09:43] LABS: Alanine Aminotransferase 19 U/L (0-41); Albumin Level 3.2 g/dL (3.5-5.2); Alkaline Phosphatase 66 IU/L (40-130); Anion Gap 13.7 (5-19); Aspartate Amino Transferase 16 U/L (0-40); Blood Urea Nitrogen 6 mg/dL (6-20); Calcium 8.2 mg/dL (8.5-10.5); Carbon Dioxide 30 mmol/L (22-29); Chloride 97 mmol/L (98-107); Globulin 2.4 g/dL (1.3-4.6); Glomerular Filtration Rate 220.2 mL/min (90-130); Glucose 106 mg/dL (65-115); Osmolality Calculated 282 mOsm/kg (285-295); Potassium 3.7 mmol/L (3.5-5.1); Sodium 137 mmol/L (136-145); Total Bilirubin 0.2 mg/dL (0.15-1.2); Total Protein 5.6 g/dL (6.6-8.7)
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
[2021-06-10] MEDS: sodium chloride 0.9% 250 ML 75 ML IV (11:06)
[2021-06-10] MEDS: ondansetron 2 mg/ML SDV 2 mL 8 MG IVP (11:06)
[2021-06-17 10:34] LABS: Basophils % 0.3 %; Hematocrit 36.7 % (42.0-52.0); Hemoglobin 11.7 g/dL (11.7-16.6); Lymphocytes # 1.5 10^3/uL (0.8-4.8); Lymphocytes % 16.6 %; Mean Corpuscular HGB Conc 31.9 g/dL (30.0-36.0); Mean Corpuscular Hemoglobin 31.1 pg (28.0-34.0); Mean Corpuscular Volume 97.6 fl (80-94); Mean Platelet Volume 9.2 fL (7.4-10.4); Monocytes # 0.3 10^3/uL (0.2-0.9); Neutrophils # 7.18 10^3/uL (1.8-7.7); Neutrophils % 77.8 %; Nucleated Red Blood Cells # 0.1 /100WBC; Nucleated Red Blood Cells % 0.5 %; Platelet Count 98 10^3/cmm (130-400); Red Blood Count 3.76 10^6/uL (4.1-5.3); Red Cell Distribution Width 19.8 % (12.1-15.1); White Blood Count 9.2 10^3/uL (4.0-10.0)
[2021-06-17 10:53] LABS: Alanine Aminotransferase 22 U/L (0-41); Albumin Level 3.3 g/dL (3.5-5.2); Alkaline Phosphatase 78 IU/L (40-130); Aspartate Amino Transferase 15 U/L (0-40); Blood Urea Nitrogen 9 mg/dL (6-20); Calcium 9.2 mg/dL (8.5-10.5); Carbon Dioxide 28 mmol/L (22-29); Chloride 96 mmol/L (98-107); Globulin 2.6 g/dL (1.3-4.6); Glomerular Filtration Rate 220.2 mL/min (90-130); Glucose 125 mg/dL (65-115); Osmolality Calculated 280 mOsm/kg (285-295); Sodium 135 mmol/L (136-145); Total Bilirubin 0.3 mg/dL (0.15-1.2); Total Protein 5.9 g/dL (6.6-8.7)
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
[2021-06-19 15:15] LABS: Basophils % 0.2 %; Hematocrit 38.4 % (42.0-52.0); Hemoglobin 12.5 g/dL (11.7-16.6); Lymphocytes # 1.4 10^3/uL (0.8-4.8); Lymphocytes % 11.4 %; Mean Corpuscular HGB Conc 32.6 g/dL (30.0-36.0); Mean Corpuscular Volume 98.2 fl (80-94); Monocytes # 0.7 10^3/uL (0.2-0.9); Monocytes % 5.2 %; Neutrophils # 10.24 10^3/uL (1.8-7.7); Neutrophils % 81.5 %; Nucleated Red Blood Cells # 0.1 /100WBC; Nucleated Red Blood Cells % 0.6 %; Platelet Count 98 10^3/cmm (130-400); Red Blood Count 3.91 10^6/uL (4.1-5.3); Red Cell Distribution Width 20.6 % (12.1-15.1); White Blood Count 12.6 10^3/uL (4.0-10.0)
[2021-06-24 10:46] LABS: Basophils % 0.2 %; Hematocrit 37.1 % (42.0-52.0); Lymphocytes # 0.9 10^3/uL (0.8-4.8); Lymphocytes % 9.9 %; Mean Corpuscular HGB Conc 32.3 g/dL (30.0-36.0); Mean Corpuscular Volume 98.9 fl (80-94); Mean Platelet Volume 10.5 fL (7.4-10.4); Monocytes # 0.6 10^3/uL (0.2-0.9); Monocytes % 6.2 %; Neutrophils % 81.6 %; Nucleated Red Blood Cells % 0 %; Platelet Count 179 10^3/cmm (130-400); Red Blood Count 3.75 10^6/uL (4.1-5.3); Red Cell Distribution Width 19.5 % (12.1-15.1); White Blood Count 9.5 10^3/uL (4.0-10.0)
[2021-06-24] MEDS: sodium chloride 0.9% 250 ML 75 ML IV (11:45)
[2021-06-24] MEDS: diphenhydrAMINE 50 mg/mL SDV 1mL 25 MG IV (11:45)
[2021-06-24] MEDS: famotidine 20 mg/2 mL INJ IVP (11:50)
[2021-06-24] MEDS: palonosetron 0.25 mg/5 mL SDV IV (11:52)
== END 2021-06-25 23:59 | disposition home or self-care (01) ==
LOC: ONCMED 05:34
PROVIDERS: Visit Provider Internal Medicine Hematology & Oncology
DX: Z51.11 Encounter for antineoplastic chemotherapy (principal); C34.01 Malignant neoplasm of right main bronchus; C78.02 Secondary malignant neoplasm of left lung; G47.33 Obstructive sleep apnea (adult) (pediatric); R04.2 Hemoptysis; J18.9 Pneumonia, unspecified organism; Z86.711 Personal history of pulmonary embolism; Z79.899 Other long term (current) drug therapy; Z92.21 Personal history of antineoplastic chemotherapy
CPT/HCPCS: 36591; 80053; 85007; 85025; 96367; 96375; 96413; 96417; 99214; J1100; J1200; J2405; J2469; J3490; J7050; J9171; J9201

== ENCOUNTER 2021-07-03 16:04 | Inpatient (IN) | payer OTHER, MEDICARE, SELFPAY ==
[2021-07-03] VITALS (15 sets, daily range): BP systolic 58–106; BP diastolic 31–57; PULSE 108–188; RESP 14–37; TEMP 36.7; O2SAT 81–100; BMI 26.8
--- NOTE | 2021-07-03 16:05 | W.ED.SOB ---
HPI - SOB/Dyspnea General: Chief Complaint: Shortness of Breath/Dyspnea Stated Complaint: DIFF BREATHING, LUNG CA Time Seen by Provider: 07/03/21 16:05 History of Present Illness: HPI Narrative: Mr. Stokes is a 60-year-old gentleman with significant past medical history of COPD and metastatic squamous cell lung cancer on chemotherapy who presents to the emergency department due to shortness of breath. He reports chemotherapy was 8 or 10 days ago and he initially tolerated the new regimen well. He developed gradual onset symptoms approximately 4 days ago. He notes multiple episodes of nonbloody diarrhea without significant abdominal pain. Additionally he noted increased work of breathing and respiratory distress. Overall the course of symptoms has been worsening. His symptoms are worse with exertion but do not go away with rest. The intensity is now severe even at rest. He has tried home albuterol treatments without significant relief. No other significant symptoms, exacerbating, or alleviating factors identified. Review of Systems General: Reports: 10 or more systems reviewed and unremarkable except in HPI and below PFSH ED PFSH: Medical History Anxiety Colon polyp COPD (chronic obstructive pulmonary disease) Coronary disease Hypertension Neuropathy, peripheral Sleep apnea, obstructive Squamous cell carcinoma of left lung Thrombocytopenia Tobacco dependency Umbilical hernia Surgical History History of coronary artery stent placement Port-A-Cath in place S/P bronchoscopy with biopsy Family History Mother Cancer Colon cancer Social History Smoking and tobacco status: former smoker Quit status (tobacco): has quit using tobacco Year quit tobacco: 2020 Former quit date comment: Hx of 1.5 PPD x 44 Years Second hand smoke exposure: Yes Smoking risk assessment/counseling performed?: No Alcohol intake: never Counseling given: No Counseling given: No Lives independently: Yes Household members: family Marital status: / service: Yes Current occupational status: retired and disabled History of recent travel: No Current gender identity: Male Physical Exam Narrative: EXAM NARRATIVE: GENERAL/CONSTITUTIONAL -ill appearing. Increased work of breathing Eyes - PERRL, no conjunctival injection ENMT - Atraumatic external nose and ears. Dry mucous membranes NECK - supple. trachea midline CARDIOVASCULAR - tachycardic rate and regular rhythm. Cool extremities without palpable pulses. Central pulses palpable RESPIRATORY -coarse breath sounds and rhonchi throughout all lung godinez, diminished more so in the left upper lobe. There is accessory muscle use and tachypnea ABDOMEN/GI -mildly generalized tender., Nondistended. No tenderness to percussion or evidence of peritonitis MSK - Extremities without obvious deformity or tenderness to palpation SKIN -cool, Dry NEURO - alert and appropriately oriented. strength and sensation intact. Moves all extremities equally. Procedures ABG Interpretation ABG Interpretation 1: ABG Results: 7.33/44.6/53.9/23/7 Interpretation: abnormal and other Additional Comments: hypoxemia, mild acidosis ABG Interpretation 2: ABG Results: 7.26/53.7/393/24.2 Interpretation: abnormal, respiratory acidosis and metabolic acidosis Arterial Line Time Out Performed: Yes Size (Gauge): 20 Technique Used: guide wire technique Post-Procedure: dry sterile dressing placed Patient Tolerated Procedure: well Complications: none Site: left and radial Central Line Placement Right IJ: Time Out Performed: Yes Patient Placed on Monitor/Pulse Ox: Yes MD Prep: mask, gown and gloves Central Line Prep: Povidone-Iodine 1%, Chlorhexidine scrub and sterile drapes applied Ultrasound Used for Placement: Yes Central Line Lumen Inserted: triple Post Procedure: sutured in place, good blood return, all ports aspirated, flushed, capped and sterile dressing applied Post Procedure X-Ray: tip of catheter in good position and no pneumothorax seen Patient Tolerated Procedure: well Complications: none Intubation Time out performed: Yes sedative: Etomidate Mg Given: 30 paralytic: Vecuronium Mg Given: 10 Laryngoscope: other (VL blade size 4) ET Tube Size: 7.5 ET Tube Uncuffed: Yes Tube Secured Depth (cm): 26 Tube Secured Location: teeth Tube Placement Confirmation: visualized tube passing through cords, equal breath sounds bilaterally, no breath sounds over epigastrium and confirmation by capnometry Patient Tolerated Procedure: well Intubation Complications: none Procedural Sedation Indication: other (cardioversion) Presedation Evaluation: performed under emergent conditions ASA Class: IV Preparation: radiographer cardiac catheterization applied, pulse oximeter, supplemental O2 applied, suction/airway equipment at bedside and IV secured IV Etomidate dose (mg): 10 Patient Tolerated Procedure: no complications Complications: hypoventilation Interventions: oxygen applied, airway repositioned and non-invasive ventilation Course ED course: - Patient was seen and evaluated by me at bedside - Patient placed on cardiac monitors, port access obtained - Initial evaluation notable for ill appearance, patient requiring supplemental oxygen and has increased work of breathing. Unable to obtain blood pressure initially which is consistent with clinical picture of cool extremities without palpable distal pulses. - IV fluids and antibiotics ordered for treatment of suspected pneumonia which, in the context of tachycardia and hypotension, reflects sepsis. [id number] ultrasound performed with poor cardiac visualization and inability to assess EF however IVC was visualized and was greater than 50% collapsed with complete collapse noted with respiration. -Initial blood gas appeared fairly well compensated however his work of breathing continued to be labored and worsening and BiPAP was placed. - The patient had some improvement in blood pressure with IV fluids with SBP >80. Additionally, his mentation maintained throughout. - Labs notable for no leukocytosis, there is thrombocytopenia which is slightly worse than baseline though per looking at recent labs patient does have a history of thrombocytopenia. Metabolic panel notable for elevated creatinine at 2.2. Additional pertinent labs include elevated troponin though repeat similar. Lactate is elevated with improvement in on repeat. - Imaging notable for Left lower lobe infiltrate. Additionally there was discussion regarding left apical luncency that correlated with prior bullous emphysematous disease noted on last CT. Unfortunately the patient was not stable enough at that time for further CT evaluation. A repeat chest x-ray was performed after some time (>30 min estimated) on BiPAP which would have showed progression if patient had pneumothorax however it did not and thus pneumothorax felt to be significantly less likely. - Early on and multiple times throughout the patient's ED visit I did talk about his overall illness and he maintained that he wished to be full code. - After 30 cc/kg fluid bolus ideal body weight the patient remained hypotensive and vasopressors were initiated. - The patient developed atrial fibrillation with RVR. I discussed the severity of his illness once again and discussed risks and benefits of electrical cardioversion, given persistently low blood pressure this was felt to be a superior option as compared to medication for rate control -Patient was subsequently cardioverted 120J x1 after 10 mg etomidate for procedural sedation. His blood pressure was augmented with push dose phenylephrine which had satisfactory results. The patient did however take quite some time to emerge from procedural sedation at which point, given overall clinical picture including difficulty assessing for oxygen saturation and predicted hospital course I decided that the patient needed to be intubated. Just prior to intubation medications being administered the patient did appear to move all extremities post cardioversion. - Patient was intubated as noted. Post intubation the patient had difficulty regarding blood pressure and sedation. Fentanyl pushes in addition to the drip were given. Additionally intermittent push doses of phenylephrine were given for episodes of transient worsening. -Despite Levophed titrated up he remained hypotensive and required additional vasopressors. Epinephrine drip and vasopressin were ordered. The patient again developed tachydysrhythmia/A. fib with RVR after epinephrine was started which was subsequently paused. Patient cardioverted successfully again 120J x1 - At this point the patient has multiple medications infusing and only had one peripheral IV and one port accessed so for the purpose of additional vasopressor and other drips a central line was placed under emergent conditions. - This is a very challenging situation with patient having high degree of complexity. There were times throughout evaluation that patient would almost reach stability such that CT was performed but would subsequently decompensate again. Decision was made to contact admitting provider at this time prior to CT imaging or further stabilization in the ICU setting. - Hospitalist was contacted and came to bedside to evaluate patient. Given adverse tachyarrhythmia development with epinephrine a phenylephrine drip was started. - Patient admitted to the ICU in critical condition. Vital Signs: Vital signs: Vital Signs Temperature 98.1 F 07/03/21 16:14 Pulse Rate 93 07/04/21 01:30 Respiratory Rate 14 07/03/21 20:50 Blood Pressure 119/67 07/04/21 01:30 Pulse Oximetry 100 07/04/21 01:30 MDM - SOB/Dyspnea Lab Data: Labs: Lab Results 07/03/21 07/03/21 07/03/21 Range/Units 16:26 16:26 16:26 WBC 7.1 (4.0-10.0) 10^3/ uL RBC 3.93 L (4.1-5.3) 10^6/u L Hgb 12.5 (11.7-16.6) g/dL Hct 38.6 L (42.0-52.0) % MCV 98.2 H (80-94) fl MCH 31.8 (28.0-34.0) pg MCHC 32.4 (30.0-36.0) g/dL RDW 16.3 H (12.1-15.1) % Plt Count 68 L (130-400) 10^3/c mm MPV 12.4 H (7.4-10.4) fL Lymph % (Auto) Not Reportable [place] % (Auto) Not Reportable Lymph # (Auto) Not Reportable [place] # (Auto) Not Reportable Nucleated RBC % (a uto) 8 % Total Counted 100 (0-100) Atypical Lymphs % 1.0 (0-5) % Absolute Neutrophi ls 5.2 (1.4-6.5) 10^3/c mm Segmented Neutroph ils 33 % Abs Segm Neuts (Ma n) 2.3 (1.6-7.1) 10/cmm Band Neutrophils 40.0 % Abs Band Neuts (Ma n) 2.8 H (0.0-1.2) 10^3/c mm Absolute Lymphocyt es 0.7 L (1.2-3.4) 10^3/c mm Lymphocytes (Manua l) 9 % Monocytes (Manual) 7.0 % Absolute Monocytes 0.5 (0.1-0.6) 10^3/c mm Eosinophils (Manua l) Not Reportable Basophils (Manual) Not Reportable Myelocytes 2.0 % Platelet Estimate Decreased (Normal) Anisocytosis Trace Specimen Type Sample Site ABG pH (7.35-7.45) ABG pCO2 (35-45) mmHg ABG pO2 (80.0-100.0) mmH g ABG HCO3 (22-26) mmol/L ABG O2 Saturation ABG Base Excess (-2.0-2.0) mmol/ L Yovani Test A-a O2 Gradient (5-10) mmHg Hematocrit (42-52) % Hgb O2 Saturation (95-100) % Carboxyhemoglobin (0.4-20.1) %THgb Methemoglobin (0.4-1.5) % Total Hemoglobin (14-18) g/dL Ionized Calcium (1.1-1.4) mmol/L O2 Delivery Device O2 Liters/Min % FiO2 % Tidal Volume PEEP cmH20 Cementer Machine ID Sodium 132 L (136-145) mmol/L Potassium 5.1 (3.5-5.1) mmol/L Chloride 87 L (98-107) mmol/L Carbon Dioxide 24 (22-29) mmol/L Anion Gap 26.1 H (5-19) BUN 19 (6-20) mg/dL Creatinine 2.2 H (0.7-1.2) mg/dL GFR Calculation 30.8 L (90-130) mL/min Glucose 78 (65-115) mg/dL Calculated Osmolal ity 275 L (285-295) mOsm/k g Lactic Acid 7.8 H* (0.5-2.2) mmol/L Lactate (0.5-2.2) mmol/L Calcium 8.1 L (8.5-10.5) mg/dL Total Bilirubin 0.6 (0.15-1.2) mg/dL AST 50 H (0-40) U/L ALT 29 (0-41) U/L Alkaline Phosphata se 61 (40-130) IU/L Troponin T Baselin e (0-15) ng/L Troponin T [address] [place] (0-15) ng/L Delta Troponin T (0-10) ABS# C-Reactive Protein 490.6 H (0.0-4.9) mg/L NT-Pro-B Natriuret Pep 8061 H (0-125) pg/mL Total Protein 5.0 L (6.6-8.7) g/dL Albumin 2.4 L (3.5-5.2) g/dL Globulin 2.6 (1.3-4.6) g/dL Procalcitonin 29.87 H (0-0.5) ng/mL 07/03/21 07/03/21 07/03/21 Range/Units 16:26 16:36 18:20 WBC (4.0-10.0) 10^3/ uL RBC (4.1-5.3) 10^6/u L Hgb (11.7-16.6) g/dL Hct (42.0-52.0) % MCV (80-94) fl MCH (28.0-34.0) pg MCHC (30.0-36.0) g/dL RDW (12.1-15.1) % Plt Count (130-400) 10^3/c mm MPV (7.4-10.4) fL Lymph % (Auto) [place] % (Auto) Lymph # (Auto) [place] # (Auto) Nucleated RBC % (a uto) % Total Counted (0-100) Atypical Lymphs % (0-5) % Absolute Neutrophi ls (1.4-6.5) 10^3/c mm Segmented Neutroph ils % Abs Segm Neuts (Ma n) (1.6-7.1) 10/cmm Band Neutrophils % Abs Band Neuts (Ma n) (0.0-1.2) 10^3/c mm Absolute Lymphocyt es (1.2-3.4) 10^3/c mm Lymphocytes (Manua l) % Monocytes (Manual) % Absolute Monocytes (0.1-0.6) 10^3/c mm Eosinophils (Manua l) Basophils (Manual) Myelocytes % Platelet Estimate (Normal) Anisocytosis Specimen Type Arterial Sample Site Brachial, left ABG pH 7.33 L (7.35-7.45) ABG pCO2 44.6 (35-45) mmHg ABG pO2 53.9 L (80.0-100.0) mmH g ABG HCO3 23.7 (22-26) mmol/L ABG O2 Saturation ABG Base Excess -2.3 L (-2.0-2.0) mmol/ L Yovani Test N/a A-a O2 Gradient (5-10) mmHg Hematocrit 39.4 L (42-52) % Hgb O2 Saturation (95-100) % Carboxyhemoglobin (0.4-20.1) %THgb Methemoglobin (0.4-1.5) % Total Hemoglobin (14-18) g/dL Ionized Calcium (1.1-1.4) mmol/L O2 Delivery Device Nc O2 Liters/Min 4.0 % FiO2 36.0 % Tidal Volume PEEP cmH20 Cementer Machine ID Amh Sodium (136-145) mmol/L Potassium (3.5-5.1) mmol/L Chloride (98-107) mmol/L Carbon Dioxide (22-29) mmol/L Anion Gap (5-19) BUN (6-20) mg/dL Creatinine (0.7-1.2) mg/dL GFR Calculation (90-130) mL/min Glucose (65-115) mg/dL Calculated Osmolal ity (285-295) mOsm/k g Lactic Acid (0.5-2.2) mmol/L Lactate (0.5-2.2) mmol/L Calcium (8.5-10.5) mg/dL Total Bilirubin (0.15-1.2) mg/dL AST (0-40) U/L ALT (0-41) U/L Alkaline Phosphata se (40-130) IU/L Troponin T Baselin e 118 H* (0-15) ng/L Troponin T 120 [address] [place] 84.66 H (0-15) ng/L Delta Troponin T -33.34 L (0-10) ABS# C-Reactive Protein (0.0-4.9) mg/L NT-Pro-B Natriuret Pep (0-125) pg/mL Total Protein (6.6-8.7) g/dL Albumin (3.5-5.2) g/dL Globulin (1.3-4.6) g/dL Procalcitonin (0-0.5) ng/mL 07/03/21 07/03/21 Range/Units 20:50 21:16 WBC (4.0-10.0) 10^3/ uL RBC (4.1-5.3) 10^6/u L Hgb (11.7-16.6) g/dL Hct (42.0-52.0) % MCV (80-94) fl MCH (28.0-34.0) pg MCHC (30.0-36.0) g/dL RDW (12.1-15.1) % Plt Count (130-400) 10^3/c mm MPV (7.4-10.4) fL Lymph % (Auto) [place] % (Auto) Lymph # (Auto) [place] # (Auto) Nucleated RBC % (a uto) % Total Counted (0-100) Atypical Lymphs % (0-5) % Absolute Neutrophi ls (1.4-6.5) 10^3/c mm Segmented Neutroph ils % Abs Segm Neuts (Ma n) (1.6-7.1) 10/cmm Band Neutrophils % Abs Band Neuts (Ma n) (0.0-1.2) 10^3/c mm Absolute Lymphocyt es (1.2-3.4) 10^3/c mm Lymphocytes (Manua l) % Monocytes (Manual) % Absolute Monocytes (0.1-0.6) 10^3/c mm Eosinophils (Manua l) Basophils (Manual) Myelocytes % Platelet Estimate (Normal) Anisocytosis Specimen Type Arterial Sample Site ABG pH 7.26 L (7.35-7.45) ABG pCO2 53.7 H (35-45) mmHg ABG pO2 393.0 H (80.0-100.0) mmH g ABG HCO3 24.2 (22-26) mmol/L ABG O2 Saturation > 100.0 ABG Base Excess -3.3 L (-2.0-2.0) mmol/ L Yovani Test N/a A-a O2 Gradient 32.0 H (5-10) mmHg Hematocrit 36.7 L (42-52) % Hgb O2 Saturation 98.5 (95-100) % Carboxyhemoglobin 0.9 (0.4-20.1) %THgb Methemoglobin 0.8 (0.4-1.5) % Total Hemoglobin 12.0 L (14-18) g/dL Ionized Calcium 1.0 L (1.1-1.4) mmol/L O2 Delivery Device Vent O2 Liters/Min % FiO2 100.0 % Tidal Volume 0.50 PEEP 5.0 cmH20 Cementer Machine ID Hark[place] Sodium 131.0 (136-145) mmol/L Potassium 4.2 (3.5-5.1) mmol/L Chloride (98-107) mmol/L Carbon Dioxide (22-29) mmol/L Anion Gap (5-19) BUN (6-20) mg/dL Creatinine (0.7-1.2) mg/dL GFR Calculation (90-130) mL/min Glucose 139.0 H (65-115) mg/dL Calculated Osmolal ity (285-295) mOsm/k g Lactic Acid (0.5-2.2) mmol/L Lactate 3.8 H (0.5-2.2) mmol/L Calcium (8.5-10.5) mg/dL Total Bilirubin (0.15-1.2) mg/dL AST (0-40) U/L ALT (0-41) U/L Alkaline Phosphata se (40-130) IU/L Troponin T Baselin e (0-15) ng/L Troponin T 120 Min [place] (0-15) ng/L Delta Troponin T (0-10) ABS# C-Reactive Protein (0.0-4.9) mg/L NT-Pro-B Natriuret Pep (0-125) pg/mL Total Protein (6.6-8.7) g/dL Albumin (3.5-5.2) g/dL Globulin (1.3-4.6) g/dL Procalcitonin (0-0.5) ng/mL EKG Data^: EKG 1: Attestation: I personally reviewed and interpreted this EKG as follows: EKG Interpretation Date: 07/03/21 EKG interpretation time: 16:20 Interpretation: Twelve-lead EKG shows a regular sinus rhythm at a rate of 137. NV interval 139, QRS duration 97, QTc 414. Interpretation: Sinus tachycardia, nonspecific ST segment abnormalities. EKG 2: Attestation: I personally reviewed and interpreted this EKG as follows: EKG Interpretation Date: 07/03/21 EKG interpretation time: 19:08 Interpretation: Twelve-lead EKG shows an irregular rhythm at a rate of 166. No NV interval to obtain Right axis deviation Interpretation: Atrial fibrillation with rapid ventricular response. EKG 3: Attestation: I personally reviewed and interpreted this EKG as follows: EKG Interpretation Date: 07/03/21 EKG interpretation time: 19:37 Interpretation: 12lead EKG shows a regular sinus rhythm at a rate of 125 NV interval 134, QRS duration 97, QTc 608 Right axis deviation Interpretation: Sinus tachycardia. [place] deviation. ST segment abnormalities. EKG 4: Attestation: I personally reviewed and interpreted this EKG as follows: EKG Interpretation Date: 07/03/21 EKG interpretation time: 23:10 Interpretation: Twelve-lead EKG shows a regular sinus. NV interval 145, QRS duration 105, QTc 404. Right axis deviation. Interpretation: sinus tachycardia. right axis deviation. Nonspecific ST segment abnormalities. Critical Care Time Critical Care Time: Critical Care Time: Yes Total Critical Care Time: 150 Attestation: Due to a high probability of clinically significant, possibly life threatening deterioration, the patient required my highest level of attention and preparedness to intervene emergently and I personally spent this critical care time directly and personally managing the patient. This critical care time included obtaining a history; examining the patient; pulse oximetry; ordering and review of laboratory and imaging studies; arranging urgent treatment with development of a management plan; evaluation of patient's response to treatment; frequent reassessment; and, discussions with other providers as applicable. It was exclusive of separately billable procedures. Discharge Plan Discharge Admit Provider: Joann Contreras Coding Level of Care Code ED Telegraph Repeater Installer for Lisbeth Flores
--- NOTE | 2021-07-03 16:13 | XRR_ITS ---
PROCEDURE INFORMATION: Exam: XR Chest Exam date and time: 07/03/2021 4:13 PM Age: 60 years old Clinical indication: Shortness of breath; Prior surgery; Additional info: SOB TECHNIQUE: Imaging protocol: XR of the chest. Views: 1 view. COMPARISON: CR XR chest 2V* [id number] 02/12/2021 1:25 PM FINDINGS: Tubes, catheters and devices: Right-sided Port-A-Cath. Lungs: Left apical lucency with lack of lung markings may reflect a large amount of underlying bullous emphysematous disease in this area as seen on CT scan from 02/13/2021, a CT could further evaluate for possible pneumothorax. Left lower lobe infiltrate. Pleural spaces: See Lungs finding. Heart/Mediastinum: Unremarkable. No cardiomegaly. Bones/joints: Unremarkable. XR/XR chest 1V portable [id number] IMPRESSION: 1. Left apical lucency with lack of lung markings may reflect a large amount of underlying bullous emphysematous disease in this area as seen on CT scan from 02/13/2021, a CT could further evaluate for possible pneumothorax. 2. Left lower lobe infiltrate.
--- NOTE | 2021-07-03 16:16 | ECG_ITS ---
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 Measurements Intervals [place] Rate: 137 P: 84 MT: 139 QRS: 131 QRSD: 97 T: 81 QT: 274 QTc: 414 Interpretive Statements SINUS TACHYCARDIA POSSIBLE RIGHT VENTRICULAR HYPERTROPHY PROBABLE INFERIOR MYOCARDIAL INFARCTION , OF INDETERMINATE AGE Compared to ECG 11/11/2019 14:44:15 Atrial abnormality now present Myocardial infarct finding still present Electronically Signed On 07-03-2021 16:59:14 CDT by Romelia More M.D. [id number] f
[2021-07-03 16:47] LABS: ABG PCO2 44.6 mmHg (35-45); ABG PH Result 7.33 (7.35-7.45); Arterial Blood Gas Hematocrit 39.4 % (42-52); Base Excess ABG -2.3 mmol/L (-2.0-2.0); Blood Gas Operator Identificat AMH; Blood Gas Sample Site Brachial, left; Blood Gas Sample Type Arterial; HCO3 ABG 23.7 mmol/L (22-26); Oxygen Device NC; PO2 ABG 53.9 mmHg (80.0-100.0)
[2021-07-03] MEDS: ipratropium-albuterol 3 mL Neb INHALATION (17:01)
[2021-07-03] MEDS: cefepime 2,000 MG in sodium chloride 0.9% (plus) 50 ML 100 MG IV (17:02)
[2021-07-03] MEDS: lactated ringers 2,328 ML 2328 ML IV (17:02)
[2021-07-03 17:13] LABS: Troponin(5th) Baseline 118 ng/L (0-15)
[2021-07-03 17:21] LABS: Lactic Sepsis W/Reflex 7.8 mmol/L (0.5-2.2)
[2021-07-03 17:22] LABS: NT Pro B Type Natriuretic Pept 8061 pg/mL (0-125); Procalcitonin 29.87 ng/mL (0-0.5)
[2021-07-03 17:30] LABS: Hematocrit 38.6 % (42.0-52.0); Hemoglobin 12.5 g/dL (11.7-16.6); Mean Corpuscular HGB Conc 32.4 g/dL (30.0-36.0); Mean Corpuscular Hemoglobin 31.8 pg (28.0-34.0); Mean Corpuscular Volume 98.2 fl (80-94); Mean Platelet Volume 12.4 fL (7.4-10.4); Platelet Count 68 10^3/cmm (130-400); Red Blood Count 3.93 10^6/uL (4.1-5.3); Red Cell Distribution Width 16.3 % (12.1-15.1); White Blood Count 7.1 10^3/uL (4.0-10.0)
[2021-07-03 17:34] LABS: Alanine Aminotransferase 29 U/L (0-41); Albumin Level 2.4 g/dL (3.5-5.2); Alkaline Phosphatase 61 IU/L (40-130); Anion Gap 26.1 (5-19); Aspartate Amino Transferase 50 U/L (0-40); Blood Urea Nitrogen 19 mg/dL (6-20); Calcium 8.1 mg/dL (8.5-10.5); Carbon Dioxide 24 mmol/L (22-29); Chloride 87 mmol/L (98-107); Globulin 2.6 g/dL (1.3-4.6); Glomerular Filtration Rate 30.8 mL/min (90-130); Glucose 78 mg/dL (65-115); Osmolality Calculated 275 mOsm/kg (285-295); Potassium 5.1 mmol/L (3.5-5.1); Sodium 132 mmol/L (136-145); Total Bilirubin 0.6 mg/dL (0.15-1.2)
[2021-07-03 17:47] LABS: C Reactive Protein 490.6 mg/L (0.0-4.9)
--- NOTE | 2021-07-03 17:53 | XRR_ITS ---
PROCEDURE INFORMATION: Exam: XR Chest Exam date and time: 07/03/2021 5:53 PM Age: 60 years old Clinical indication: Shortness of breath; Prior surgery; Additional info: SOB, ? worsening findings compared to prior, ? pneumothorax TECHNIQUE: Imaging protocol: XR of the chest. Views: 1 view. COMPARISON: CR XR chest 1V portable [id number] 07/03/2021 5:03 PM FINDINGS: Tubes, catheters and devices: Right-sided Port-A-Cath. Lungs: Lung markings are now somewhat seen in the left apex extending into a crescentic increased density overlying the left apex making a pneumothorax less likely and bullous emphysematous disease a more probable cause for the lucency previously seen. Left lower lobe airspace infiltrate again seen. Pleural spaces: See Lungs finding. Heart/Mediastinum: Unremarkable. No cardiomegaly. Bones/joints: Unremarkable. XR/XR chest 1V portable [id number] IMPRESSION: 1. Lung markings are now somewhat seen in the left apex extending into a crescentic increased density overlying the left apex making a pneumothorax less likely and bullous emphysematous disease a more probable cause for the lucency previously seen. 2. Left lower lobe airspace infiltrate again seen. 3. Right-sided Port-A-Cath.
--- NOTE | 2021-07-03 18:16 | ECG_ITS ---
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 Measurements Intervals [place] Rate: 122 P: 82 FL: 139 QRS: 106 QRSD: 99 T: 80 QT: 311 QTc: 445 Interpretive Statements SINUS TACHYCARDIA WITH FREQUENT SUPRAVENTRICULAR PREMATURE COMPLEXES RIGHT AXIS DEVIATION [QRS AXIS > 100] PROBABLE INFERIOR MYOCARDIAL INFARCTION , OF INDETERMINATE AGE Compared to ECG 07/03/2021 16:18:14 Right-axis deviation now present Myocardial infarct finding still present Electronically Signed On 07-04-2021 9:26:53 CDT by Romelia More M.D. [id number] f
[2021-07-03 18:25] LABS: Reflex Lactate Order REFLEX LACTIC ORDERD
[2021-07-03 19:02] LABS: Troponin 5 2HR 84.66 ng/L (0-15)
[2021-07-03 19:04] LABS: Troponin 5 2HR Delta -33.34 ABS# (0-10)
--- NOTE | 2021-07-03 19:06 | ECG_ITS ---
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 Measurements Intervals [place] Rate: 166 P: [place]: QRS: 107 QRSD: 96 T: -72 QT: 257 QTc: 427 Interpretive Statements ATRIAL FIBRILLATION WITH RAPID VENTRICULAR RESPONSE RIGHT AXIS DEVIATION [QRS AXIS > 100] PATTERN CONSISTENT WITH PULMONARY DISEASE ST DEVIATION AND MODERATE T-WAVE ABNORMALITY, CONSIDER INFERIOR ISCHEMIA Compared to ECG 07/03/2021 18:53:15 T-wave abnormality now present Possible ischemia now present Sinus tachycardia no longer present Myocardial infarct finding no longer present Electronically Signed On 07-04-2021 8:56:58 CDT by Romelia More M.D. [id number]
--- NOTE | 2021-07-03 19:36 | ECG_ITS ---
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 Measurements Intervals Callahan Rate: 125 P: 85 MT: 134 QRS: 114 QRSD: 97 T: 87 QT: 421 QTc: 608 Interpretive Statements SINUS TACHYCARDIA RIGHT AXIS DEVIATION [QRS AXIS > 100] POSSIBLE ANTERIOR MYOCARDIAL INFARCTION , OF INDETERMINATE AGE [30 ms Q WAVE IN V3/V4, OR R < 0.2 mV IN V4] POSSIBLE INFERIOR MYOCARDIAL INFARCTION , OF INDETERMINATE AGE [30 ms Q WAVE IN II/aVF] Compared to ECG 07/03/2021 19:06:16 Myocardial infarct finding now present Atrial fibrillation no longer present T-wave abnormality no longer present Possible ischemia no longer present Electronically Signed On 07-04-2021 8:56:38 CDT by Romelia More M.D. [id number]
--- NOTE | 2021-07-03 19:51 | XRR_ITS ---
PROCEDURE INFORMATION: Exam: XR Chest Exam date and time: 07/03/2021 7:51 PM Age: 60 years old Clinical indication: Device placement; Ett placement (vent status); Additional info: Post intubation TECHNIQUE: Imaging protocol: XR of the chest. Views: 1 view. COMPARISON: CR (CHEST, ) 07/03/2021 5:55 PM FINDINGS: An ETT has been placed terminating 4.5 cm above the madhavi. A nasogastric tube traverses the thorax (tip not imaged). The right subclavian Infusaport is stable in position. The cardiopulmonary findings are grossly unchanged. XR/XR chest 1V portable [id number] IMPRESSION: Interval placement of an ETT and nasogastric tube
[2021-07-03] MEDS: fentaNYL 50 mcg/mL INJ 2mL IVP ×2 (19:55→21:15)
[2021-07-03] MEDS: hydrocortisone 100 mg/2 mL SDV IVP (20:05)
[2021-07-03 20:30] LABS: Absolute Segmented Neutrophil 2.3 10/cmm (1.6-7.1); Band Neutrophils Absolute 2.8 10^3/cmm (0.0-1.2); Lymphocytes 9 %; Lymphocytes Absolute 0.7 10^3/cmm (1.2-3.4); Monocytes Absolute 0.5 10^3/cmm (0.1-0.6); Segmented Neutrophils 33 %; Total Cells Counted 100 (0-100)
[2021-07-03 20:31] LABS: Absolute Neutrophil 5.2 10^3/cmm (1.4-6.5); Platelet Estimate Decreased (Normal)
[2021-07-03 20:32] LABS: Anisocytosis Trace
[2021-07-03 20:35] LABS: Nucleated Red Blood Cells % 8 %
--- NOTE | 2021-07-03 20:42 | ECG_ITS ---
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 Measurements Intervals Dorr Rate: 103 P: 83 AK: 145 QRS: 102 QRSD: 105 T: 93 QT: 308 QTc: 404 Interpretive Statements SINUS TACHYCARDIA RIGHT AXIS DEVIATION [QRS AXIS > 100] PATTERN CONSISTENT WITH PULMONARY DISEASE POSSIBLE INFERIOR MYOCARDIAL INFARCTION , OF INDETERMINATE AGE [30 ms Q WAVE IN II/aVF] Compared to ECG 07/03/2021 20:42:09 No significant changes Electronically Signed On 07-04-2021 20:07:30 CDT by Cedrick Banda M.D. [id number] f
[2021-07-03 21:27] LABS: ABG PCO2 53.7 mmHg (35-45); ABG PH Result 7.26 (7.35-7.45); Arterial Blood Gas Hematocrit 36.7 % (42-52); Base Excess ABG -3.3 mmol/L (-2.0-2.0); Blood Gas Operator Identificat HARKR; Blood Gas Sample Type Arterial; Carboxyhemoglobin 0.9 %THgb (0.4-20.1); HCO3 ABG 24.2 mmol/L (22-26); HGB O2 Sat 98.5 % (95-100); Methemoglobin 0.8 % (0.4-1.5); Oxygen Device VENT; Oxygen Saturation ABG > 100.0; Potassium Level - ABG 4.2 mmol/L (3.5-5.0)
[2021-07-03] MEDS: ondansetron 2 mg/ML SDV 2 mL 4 MG IVP (21:30)
[2021-07-03 21:31] LABS: Lactate (Lactic Acid level) 3.8 mmol/L (0.5-2.2)
--- NOTE | 2021-07-03 22:03 | XRR_ITS ---
PROCEDURE INFORMATION: Exam: XR Chest Exam date and time: 07/03/2021 10:03 PM Age: 60 years old Clinical indication: Device placement; Other: Central line placement TECHNIQUE: Imaging protocol: XR of the chest. Views: 1 view. COMPARISON: CR (CHEST, ) 07/03/2021 7:58 PM XR/XR chest 1V portable [id number] IMPRESSION: A right IJ central venous catheter has been placed, which terminates in the distal SVC. No pneumothorax is seen. No other change is detected.
--- NOTE | 2021-07-03 22:16 | ECG_ITS ---
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 Measurements Intervals Honor Rate: 139 P: 74 [place]: 145 QRS: 109 QRSD: 100 T: 91 QT: 283 QTc: 431 Interpretive Statements SINUS TACHYCARDIA WITH FREQUENT SUPRAVENTRICULAR PREMATURE COMPLEXES RIGHT AXIS DEVIATION [QRS AXIS > 100] PATTERN CONSISTENT WITH PULMONARY DISEASE POSSIBLE INFERIOR MYOCARDIAL INFARCTION , PROBABLY OLD [30 ms Q WAVE IN II/aVF] Compared to ECG 07/03/2021 19:36:36 No significant changes Electronically Signed On 07-04-2021 20:10:26 CDT by Cedrick Banda M.D. [id number] f
[2021-07-03] MEDS: hydrocortisone 100 mg/2 mL SDV 125 MG IVP (22:30)
[2021-07-03 22:55] LABS: Troponin 5 6HR 74.52 ng/L (0-15)
--- NOTE | 2021-07-03 23:19 | PC.PHAR ---
Pharmacokinetic dosing service Date: 07/03/21 Time: 2319 Objective: Patient: Rayo Stokes Floor: ICU-2 Age: 60 yo Serum creatinine: 2.2 mg/dL Height: 72.0 Inches Weight (kg): 89.811 Diagnosis: Relevant medical/social history: Cultures and sensitivities: Other labs: Assessment: IBW (kg): 77.60 Dosing wt(kg): 89.811 Estimated Creatinine clearance (ml/min): 39.7 CRCL method: Cockcroft and Gault using ibw(default). Drug selected: Vancomycin Loading dose (mg): 0 Vd (liters): 80.8 (factor used: 0.9 L/kg) Man (hr-1): 0.037 Half life (hrs): 18.73 Recommended dose: 1500 mg Interval: 24 hrs Infusion time (hrs): 1.5 Predicted peak (mcg/mL): 30.7 Predicted trough (mcg/mL): 13.35 Total body weight is being used for vancomycin dosing. Renal function is stable [ ] /unstable [ ] Recommendations: Give Vancomycin 1500 mg q 24 hrs with an expected Cpeak of 30.7 mcg/ml and an expected Ctrough of 13.35 mcg/ml Renal dosing of other antibiotics (review renal dosing of other medications and list guidelines here): Thank you for the consult, will continue to follow. Signature: Tita Buchanan [facility]
[2021-07-04] VITALS (39 sets, daily range): BP systolic 77–201; BP diastolic 39–111; PULSE 88–149; RESP 16–22; O2SAT 92–100
--- NOTE | 2021-07-04 01:23 | PC.NURSE ---
arrived from ED via stretcher intubated and ventilated with AMBU bag, LEVO and anuja turned off, transferred to bed with lift sheet. Dr torres on unit, gave v.o. to increase levophed max to 30, if fentany and precedex not adequate for sedation start versed drip
[2021-07-04] MEDS: EPINEPHrine 2.5 MG in sodium chloride 0.9% 250 ML 24.24 MG IV (02:01)
[2021-07-04] MEDS: dexmedeTOMIDine 0.9 % NaCL 400 MCG/100 ML PREMIX IV (02:11)
[2021-07-04] MEDS: phenylephrine inj 25 MG in sodium chloride 0.9% 250 ML 24.24 MG IV (02:15)
--- NOTE | 2021-07-04 02:24 | PC.NURSE ---
BP map 61 on 30 of levo 0.04 vaso 200 anuja, Dr. Contreras notified, while on phone art line BP became 84/65, dr contreras advised this nurse to continue with current meds if BP drops add epi drip, if develops tachycardia change epi drip to dopamine drip
[2021-07-04] MEDS: piperacillin-tazobactam 3.375 GM in sodium chloride 0.9% (plus) 50 ML IV ×2 (02:41→05:03)
--- NOTE | 2021-07-04 02:48 | P.HP_ITS ---
Providers/Chief Complaint Admitting Physician: Joann Contreras MD Chief Complaint: DIFF BREATHING, LUNG CA History of Present Illness History obtained by chart review, and discussion with patient's mother Anali, ER physician. Patient unable to participate as he is currently intubated and sedated. Mr. 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 He is status post multiple lines of chemotherapy and radiation, however unfortunately has continued to have progression of disease. He was on immunotherapy with Keytruda until January 2021, then most recently switched to palliative chemo with Taxotere/gemcitabine, last dose 1 week ago, with some side effects of progressive mild thrombocytopenia. Per mother he has been on prednisone 20 mg at least over the past month due to possible autoimmune versus radiation pneumonitis. He has been oxygen dependent on 2 L/min for a long time. Per mother and per notes review patient has been experiencing progressively worsening shortness of breath and dyspnea on exertion at least over the past several months, more acutely worsened over the past week. He has also been experiencing poor p.o. intake, nausea, multiple episodes of diarrhea, resolved over last 48 hours since last chemotherapy 1 week ago. His dyspnea got severe enough to the point to warrant presentation to the emergency room today. He has increased the frequency of his home inhalers and nebulization regimen without significant difference. He has also had progressively increasing lower extremity swelling and poor urine output over the past week. Upon presentation to the ER initially patient was noted to be hypoxic, having increased work of breathing, had cool extremities without palpable distal pulses. He was hypotensive with best blood pressure recorded at 80 systolic. Uptwl-gi-tcrh ultrasound also with poor cardiac visualization, IVC collapsed. He was given IV fluid resuscitation and additionally started on pressors. Subsequently patient developed A. fib with RVR with heart rate up to 200 and underwent electrical cardioversion given persistently low blood pressure. He received 10 mg of etomidate prior to cardioversion. Patient took some time to emerge from procedural sedation and given his overall clinical picture with deteriorating respiratory function, patient was eventually intubated. His mentation was not impaired prior to intubation. Postintubation patient continued to have unstable hemodynamics with hypotension. Epinephrine drip was started and then discontinued as heart rate became uncontrolled 1 90-200. He was maintained on Levophed, vasopressin, and phenylephrine. He was cardioverted a second time. Amiodarone infusion was planned to be added, however patient's heart rate has subsequently been maintained between 90-100. At the time of my first assessment at around 10 PM, patient did open his eyes spontaneously and appeared uncomfortable, started on fentanyl and Precedex infusions(hypotensive with propofol), however since transfer to ICU he has not had any purposeful movements. Given patient's overall clinical picture concern for septic shock versus cardiogenic shock, possibility of PE not excluded. CTA of the chest abdomen pelvis and CT of the head were unable to be performed due to overall hemodynamic instability. He is currently on empiric treatment with antibiotics and hemodynamic management with IV fluids and pressors. Presumptively also started on anticoagulation with Lovenox. Diagnostics noted diagnostics notable for no gross leukocytosis, t hrombocytopenia with platelet count 68, ABG with 7.26/53.7/393 100% FiO2 PEEP 5, PREETHI with creatinine at 2.2, lactate at 7.8, baseline troponin I 1 8, 2-hour delta -33 and 6-hour delta -43, elevated CRP at 490, elevated pro-Joss at 29. Xray chest with left lower lobe infiltrate, initial concern for pneumothorax, however not seen on subsequent multiple chest x-rays. 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 Review of Systems General: Reports: ROS unobtainable due to endotracheal tube and ROS unobtainable due to medical condition Medications/Allergies Home Medications Medication Instructions Recorded Confirmed Last Taken Type albuterol sulfate 1 puff INHALATION QID PRN 11/11/19 07/03/21 1 Day Ago History ~08/07/20 atorvastatin 20 mg PO DAILY 11/11/19 07/03/21 1 Day Ago History ~08/07/20 budesonide-formoterol [Symbicort] 2 puff INHALATION BID 11/11/19 07/03/21 1 Day Ago History ~08/07/20 levothyroxine 25 mcg PO DAILY 08/06/20 07/03/21 07/02/21 History albuterol sulfate 2.5 mg INHALATION Q6H PRN 01/10/21 07/03/21 Unknown History gabapentin 300 mg capsule 300 mg PO BID cap 01/10/21 07/03/21 Unknown History hydrocodone 7.5 mg-acetaminophen 1 tab PO Q6H PRN 01/10/21 07/03/21 Unknown History 325 mg tablet lorazepam 1 mg tablet 0.5 - 1 mg PO Q8H PRN tab 01/10/21 07/03/21 Unknown History metoprolol tartrate 25 mg tablet 12.5 mg PO BID tab 01/10/21 07/03/21 07/02/21 History aspirin [Aspir-81] 81 mg PO DAILY 07/03/21 07/03/21 07/02/21 History cholecalciferol (vitamin D3) 50 mcg PO DAILY 07/03/21 07/03/21 Unknown History [Vitamin D3] morphine 15 mg PO BID 07/03/21 07/03/21 07/02/21 History morphine 30 mg PO BID 07/03/21 07/03/21 07/02/21 History naloxone See Rx Instructions .ROUTE .COMPLEX 07/03/21 07/03/21 Unknown History prednisone 20 mg PO DAILY 07/03/21 07/03/21 07/02/21 History tiotropium bromide [Spiriva 2 puff INHALATION DAILY 07/03/21 07/03/21 07/03/21 History Respimat] Allergies Allergy/AdvReac Type Severity Reaction Status Date / Time No Known Allergies Allergy Verified 01/10/21 10:27 PFSH Acute PFSH: Medical History Anxiety Colon polyp COPD (chronic obstructive pulmonary disease) Coronary disease Hypertension Neuropathy, peripheral Sleep apnea, obstructive Squamous cell carcinoma of left lung Thrombocytopenia Tobacco dependency Umbilical hernia Surgical History History of coronary artery stent placement Port-A-Cath in place S/P bronchoscopy with biopsy Family History Mother Cancer Colon cancer Social History Smoking and tobacco status: former smoker Quit status (tobacco): has quit using tobacco Year quit tobacco: 2020 Former quit date comment: Hx of 1.5 PPD x 44 Years Second hand smoke exposure: Yes Smoking risk assessment/counseling performed?: No Alcohol intake: never Counseling given: No Counseling given: No Lives independently: Yes Household members: family Marital status: / service: Yes Current occupational status: retired and disabled History of recent travel: No Current gender identity: Male Vitals/I&O/Wt Last Vital Signs Temp 98.1 F 07/03/21 16:14 Pulse 93 07/04/21 01:30 Resp 22 H 07/03/21 23:00 BP 119/67 07/04/21 01:30 Pulse Ox 100 07/04/21 01:30 07/03/21 07/03/21 07/04/21 14:59 22:59 06:59 Intake Total 441.564 / 441.564 Balance 441.564 / 441.564 Weight last 48 hrs Weight 89.811 kg Physical Exam Narrative: EXAM NARRATIVE: General: intubated, sedated, HEENT: Pupils B/L mid dilated, reactive to light Chest: fine crackles to auscultation B/L CVS: S1-S2 regular, no murmurs Abdomen: Soft, nondistended, Bs+ Neuro: currently intubated and sedated Extremities: B/L LE swelling, pititng edema, mottling around B/L knees. Urinary Catheter Management^: Reagan: Cath Placed During This Visit: yes Urinary Catheter Date of Insertion: 07/03/21 Urinary Catheter Time of Insertion: 20:00 Data : 07/03/21 16:26 07/03/21 16:26 Micro: Microbiology 07/03/21 18:20 Blood Culture - Preliminary Blood SPECIMEN COLLECTED 07/03/21 16:26 Blood Culture - Preliminary Blood SPECIMEN COLLECTED A&P Assessment and plan (1) Septic shock: Patient presenting as above in HPI Concern for septic shock vs cardiogenic shock Received sepsis bolus in ED. IVC noted to be collapsed on bedside USG, continue IVF NS @ 100cc/hr empiric zosyn and vancomycin source under evaluation, may be related to underlying pneumonia, abdominal source such as colitis, unable to get CT imaging at this time check C diff PCR, COVID PCR, blood cx, UA and urine cx, CT imaging once more stable Currently on 3 pressors - maintain MAP >65mmhg alternate possibility includes cardiogenic shock Troponin series with negative delta at 2 and 6 hr Current EKG with sinus tachycardia with PVCs Check echocardiogram Possibility of PE not excluded , check D dimer and LE duplex, presumptively given first dose lovenox 1mg/kg Stress dose steroids hydrocortisone 125mg q6h given recent outpatient steroid use Status: Acute (2) PREETHI (acute kidney injury): likely ATN from sepsis IVF and pressors as above monitor I/O, urine output, trend cr Status: Acute (3) Atrial fibrillation with rapid ventricular response: currently with sinus tachycardia HR 90-100 after cardioversion Status: Acute (4) Metastatic lung cancer (metastasis from lung to other site): progressive disease in apite of multipel lines of treatment Status: Acute (5) Respiratory failure: Status: Acute Additional A&P Information All updates and patient's critical nature of illness were discussed with his mother at length. Patient currently lives with his mother Anali Stokes. She tells me that patient has been getting progressively worse and given his progressive disease in spite of multiple lines of chemotherapy, he has been aware that his overall prognosis is extremely poor. She states he would not wish to be maintained on life support if it is not adding any meaningful quality of life. She would like to visit him at the bedside and have a goals of care discussion with the treating team. After talking to mother, patient's CODE STATUS has been changed to limited resuscitation with ICU admission, current medical management including pressors but no chest compressions or further cardioversion. Attestations Medical Necessity Statement*: >2midnight admission will be needed for above management Critical Care Time: The high probability of a clinically significant, sudden or life threatening deterioration of the patient's [cardiac, respiratory, renal, ID ] system(s) required my full and direct attention, intervention and personal management. The critical care time is as shown. 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
--- NOTE | 2021-07-04 02:54 | PC.NURSE ---
this nurse called and updated person to notify of patient condition, verified that family does not want CPR
[2021-07-04] MEDS: hydrocortisone 100 mg/2 mL SDV 125 MG IVP (02:57)
--- NOTE | 2021-07-04 03:03 | PC.NURSE ---
jena from dr. Contreras for 1L fluid bolus ontop of the 4L given in ED, then start NS at 100 ml/hr
[2021-07-04] MEDS: sodium chloride 0.9% 1,000 ML 999 ML IV (03:33)
[2021-07-04] MEDS: sodium chloride 0.9% 1,000 ML 100 ML IV (03:34)
[2021-07-04 03:59] LABS: ABG PCO2 51.7 mmHg (35-45); Arterial Blood Gas Hematocrit 41.2 % (42-52); Base Excess ABG -1.8 mmol/L (-2.0-2.0); Blood Gas Operator Identificat HARKR; Blood Gas Sample Type Arterial; HCO3 ABG 25.3 mmol/L (22-26); Oxygen Device VENT
--- NOTE | 2021-07-04 04:15 | PC.NURSE ---
this nurse nurse notified dr. Contreras cuff pressure not taking but art line is reading at this time
[2021-07-04] MEDS: enoxaparin 100 mg/mL Syringe 90 MG SUBCUT (04:19)
[2021-07-04 04:31] LABS: Hematocrit 35.8 % (42.0-52.0); Hemoglobin 11.6 g/dL (11.7-16.6); Mean Corpuscular HGB Conc 32.4 g/dL (30.0-36.0); Mean Corpuscular Hemoglobin 32.1 pg (28.0-34.0); Mean Corpuscular Volume 99.2 fl (80-94); Platelet Count 80 10^3/cmm (130-400); Red Blood Count 3.61 10^6/uL (4.1-5.3); Red Cell Distribution Width 16.1 % (12.1-15.1); White Blood Count 14.1 10^3/uL (4.0-10.0)
[2021-07-04 04:45] LABS: Lactate (Lactic Acid level) 3.9 mmol/L (0.5-2.2)
[2021-07-04 04:54] LABS: Alanine Aminotransferase 136 U/L (0-41); Alkaline Phosphatase 59 IU/L (40-130); Anion Gap 18.9 (5-19); Aspartate Amino Transferase 212 U/L (0-40); Blood Urea Nitrogen 27 mg/dL (6-20); Calcium 7.4 mg/dL (8.5-10.5); Carbon Dioxide 23 mmol/L (22-29); Chloride 91 mmol/L (98-107); Glomerular Filtration Rate 41.5 mL/min (90-130); Glucose 179 mg/dL (65-115); Osmolality Calculated 276 mOsm/kg (285-295); Potassium 4.9 mmol/L (3.5-5.1); Sodium 128 mmol/L (136-145); Total Bilirubin 0.7 mg/dL (0.15-1.2)
[2021-07-04 05:07] LABS: Absolute Segmented Neutrophil 7.8 10/cmm (1.6-7.1); Band Neutrophils Absolute 3.9 10^3/cmm (0.0-1.2); Corrected White Blood Count 13.1 10^3/cmm (4.8-10.8); Eosinophils 0 %; Lymphocytes 7 %; Lymphocytes Absolute 1.1 10^3/cmm (1.2-3.4); Monocytes Absolute 0.7 10^3/cmm (0.1-0.6); Segmented Neutrophils 55 %; Slide Review Slide Review Perform; Total Cells Counted 100 (0-100)
[2021-07-04 05:08] LABS: Absolute Neutrophil 11.7 10^3/cmm (1.4-6.5); Platelet Estimate Decreased (Normal)
[2021-07-04 05:08] LABS: SARS Covid-2 Antigen Negative (Negative)
[2021-07-04] MEDS: phenylephrine inj 25 MG in sodium chloride 0.9% 250 ML 60.6 MG IV ×2 (06:26→10:41)
--- NOTE | 2021-07-04 08:36 | PC.NURSE ---
Dr. Martin at bedside. Gave verbal order set levo and vaso at set rates.
[2021-07-04] MEDS: norepinephrine 8 MG in dextrose 5 % 500 ML 190.5 MG IV (09:49)
[2021-07-04] MEDS: LORazepam 2 mg/mL INJ 1 mL IVP (10:57)
[2021-07-04] MEDS: morphine 4 mg/mL SDV 1 mL IVP ×2 (10:58→12:07)
--- NOTE | 2021-07-04 11:11 | PC.NURSE ---
Family in room with and this nurse and discussed the patients wishes. Family decided to place patient of comfort measures and all questions were answered. Waiting on mother to return to room to discontinue medications per orders.
--- NOTE | 2021-07-04 12:06 | PC.RESP ---
extubated pt terminally extubated per family wishes, family at bedside
[2021-07-04 15:18] LABS: Coronavirus Test Green County Not Detected
--- NOTE | 2021-07-04 15:23 | PC.NURSE ---
Patient at 1258. Family in room.
--- NOTE | 2021-07-04 16:51 | PM.PN ---
Subjective Subjective: Interval history: Patient was seen this morning, he is on 3 pressor therapy, maps are difficult to manage overnight persistent less than 65, now greater than 65 intubated, mechanical ventilation, he is sedated, minimal urine output, patient likely has septic shock with acute respiratory failure, there is also concerns for cardiogenic shock due to pulmonary emboli, with concern for pulmonary emboli, this morning on minimal sedation he does follow commands, he is able to follow some commands to squeeze my fingers, nodding his head, he is receiving maximal medical therapy, antibiotics, Lovenox, unfortunately he is too unstable to do any further imaging I discussed the case with Dr. 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 Bragg said that his prognosis with his lung cancer is poor The following discussion was made in the presence of nurse Briscoe -Patient's mother, daughter, and family members were in the room -I discussed patient's underlying lung cancer, severe COPD, decreased lung function, overall poor prognosis with lung cancer -Now he is critically ill with acute respiratory failure, septic shock, multiple pressors, concerns for pulmonary emboli -Has severe lactic acidosis, acidemia, acute renal failure -Also I am concerned for an incarcerated umbilical hernia, as his umbilical hernia is also not reducing -I felt that the over likelihood of meaningful recovery is fairly unlikely, however options I presented to family was continuing medical interventions versus pursuing comfort care -I discussed the risks and benefits of each, answered all their questions carefully -After discussing the risk and benefits, they voiced understanding, all questions answered, agreed to proceed to comfort care -Patient was started on comfort care Vitals/I&O/Wt Last Vital Signs Temp 98.1 F 07/03/21 16:14 Pulse 129 H 07/04/21 12:30 Resp 22 H 07/04/21 10:58 BP 124/101 07/04/21 12:30 Pulse Ox 97 07/04/21 11:00 07/04/21 07/04/21 07/04/21 06:59 14:59 22:59 Intake Total 411.420 / 168.333 2462.690 / 1867.690 3.129 / 1870.819 Output Total 250 / 250 Balance 161.420 / 943.717 6781.690 / 1867.690 3.129 / 1870.819 Weight last 48 hrs Weight 93.44 kg Weight 89.811 kg Physical Exam Narrative: EXAM NARRATIVE: Intubated, on minimal sedation, follows some commands Const: GENERAL APPEARANCE: ill appearing and frail appearing Resp: EFFORT & INSPECTION: Yes tachypneic and Yes uses accessory muscles AUSCULTATION: wheezes Cardio: COMMON NORMALS: regular rate, regular rhythm, S1 normal heart sound present and S2 normal heart sound present RATE: regular rate RHYTHM: regular rhythm HEART SOUNDS: S1 normal heart sound present and S2 normal heart sound present GI: COMMON NORMALS: Normal to inspection, nondistended, normoactive bowel sounds present and Soft to palpation PALPATION: Yes Soft to palpation OTHER: Does have a umbilical hernia, does not reduce, concerns for incarceration Extremity: NARRATIVE EXTREMITY EXAM: No pitting edema, DP PT pulses barely palpable, patient is mottled all the way up to the abdomen, poor capillary refill Urinary Catheter Management^: Reagan: Cath Placed During This Visit: yes Reason for Continuing Indwelling Catheter: Accurate Measurement of Urinary Output in Critically Ill Patients Urinary Catheter Date of Insertion: 07/03/21 Urinary Catheter Time of Insertion: 20:00 Data : 07/04/21 03:45 07/04/21 03:45 Micro: Microbiology 07/03/21 16:26 Blood Culture - Preliminary Blood NEGATIVE TO DATE 07/03/21 18:20 Blood Culture - Preliminary Blood SPECIMEN COLLECTED A&P Assessment and plan (1) Septic shock: Proceeding with comfort care, start comfort care orders Patient presenting as above in HPI Concern for septic shock vs cardiogenic shock Received sepsis bolus in ED. IVC noted to be collapsed on bedside USG, continue IVF NS @ 100cc/hr empiric zosyn and vancomycin source under evaluation, may be related to underlying pneumonia, abdominal source such as colitis, unable to get CT imaging at this time check C diff PCR, COVID PCR, blood cx, UA and urine cx, CT imaging once more stable Currently on 3 pressors - maintain MAP >65mmhg alternate possibility includes cardiogenic shock Troponin series with negative delta at 2 and 6 hr Current EKG with sinus tachycardia with PVCs Check echocardiogram Possibility of PE not excluded , check D dimer and LE duplex, presumptively given first dose lovenox 1mg/kg Stress dose steroids hydrocortisone 125mg q6h given recent outpatient steroid use Status: Acute (2) PREETHI (acute kidney injury): likely ATN from sepsis IVF and pressors as above monitor I/O, urine output, trend cr Status: Acute (3) Atrial fibrillation with rapid ventricular response: currently with sinus tachycardia HR 90-100 after cardioversion Status: Acute (4) Metastatic lung cancer (metastasis from lung to other site): progressive disease in apite of multipel lines of treatment Status: Acute (5) Respiratory failure: Status: Acute Additional A&P Information All updates and patient's critical nature of illness were discussed with his mother at length. Patient currently lives with his mother Anali Stokes. She tells me that patient has been getting progressively worse and given his progressive disease in spite of multiple lines of chemotherapy, he has been aware that his overall prognosis is extremely poor. She states he would not wish to be maintained on life support if it is not adding any meaningful quality of life. She would like to visit him at the bedside and have a goals of care discussion with the treating team. After talking to mother, patient's CODE STATUS has been changed to limited resuscitation with ICU admission, current medical management including pressors but no chest compressions or further cardioversion. Attestations Medical Necessity Statement*: Patient requires hospitalization for septic shock, underlying lung cancer, proceeding with comfort care Coding Level of Care Code Acute Donations Attendant for [facility] Diagnoses Septic shock A41.9; R65.21 PREETHI (acute kidney injury) N17.9 Atrial fibrillation with rapid ventricular response I48.91 Metastatic lung cancer (metastasis from lung to other site) C34.90 Respiratory failure J96.90
--- NOTE | 2021-07-17 12:51 | PM.DDS ---
Discharge Providers DDS Date of Admission: 07/03/21 22:10 Date Summary Completed: 07/17/21 Attending Provider at Admission: Joann Contreras MD Time of : 12:51 Attending Provider at Discharge: Woodrow Martin MD DS Diagnoses Hospital Diagnoses (1) Septic shock: (2) PREETHI (acute kidney injury): (3) Atrial fibrillation with rapid ventricular response: (4) Metastatic lung cancer (metastasis from lung to other site): (5) Respiratory failure: Reason for Visit Reason for Visit: DIFF BREATHING, LUNG CA Summary Date and Time of Date of : 07/04/21 Time of : 12:51 Summary Summary: This is a 60-year-old male with a past medical history of severe bilateral COPD, history of stage IV squamous cell carcinoma of the right lung with contralateral lung involvement, status post chemoradiation, currently on palliative gemcitabine, PET scan showed malignant left hilar mass, progression of subcarinal lymph nodes, left upper lobe pleural implants, hypothyroidism, current smoker, hyperlipidemia Who presents to [facility] due to complaints of shortness of breath with hypoxia. Patient was admitted to [facility] for acute hypoxic respiratory failure secondary to pneumonia and concerns for pulmonary emboli, with acute encephalopathy, with septic shock, cardiogenic shock, A. fib with RVR status post cardioversion with return back to normal sinus rhythm in the emergency room, multiorgan failure, acidemia, acute renal failure, and NSTEMI. Patient was intubated, sedated, placed on broad-spectrum antibiotic therapy, anticoagulant therapy, maximal pressor therapy and monitored in the intensive care unit. Patient was critically ill, and his prognosis was given his risk factors as above poor. Patient's family was present at bedside, given patient's severe COPD, stage IV squamous cell carcinoma goals of care were discussed. I discussed all options available to the patient, including but not limited to continued medical interventions, or pursuing comfort care. After discussing the risk of benefits, patient's family including his next of kin mom voiced understanding, all questions answered, agreed to proceed with comfort care. After discussing the risk and benefits of comfort care, all parties voiced understanding all questions answered, agreed to proceed with comfort care. Patient 07/04/2021 at 12:51 PM. Additional Data Confirmation of as documented by pronouncing clinician: no pulse Family: at bedside Additional persons at bedside: nursing staff Attending/PCP notified?: I am attending Was code activated?: No Autopsy requested?: No Advance directives?: No Discharge Plan Discharge Patient Disposition: At Medical Facility Condition: Stable Prescriptions: No Action albuterol sulfate 2.5 mg /3 mL (0.083 %) solution for nebulization 2.5 mg inhalation Q6H PRN (Reason: SEE ALL PHARAMCY COMMENTS) RF: 0 hydrocodone-acetaminophen [[place]] 7.5-325 mg tablet 1 tab PO Q6H PRN (Reason: Pain) RF: 0 levothyroxine 25 mcg Capsule 25 mcg PO DAILY RF: 0 prednisone 20 mg tablet 20 mg PO DAILY RF: 0 morphine 30 mg tablet extended release 30 mg PO BID RF: 0 Aspir-81 81 mg Tablet,Delayed Release (Dr/Ec) 81 mg PO DAILY RF: 0 morphine 15 mg tablet extended release 15 mg PO BID RF: 0 Vitamin D3 50 mcg (2,000 unit) Capsule 50 mcg PO DAILY RF: 0 Spiriva Respimat 2.5 mcg/actuation Mist 2 puff INHALATION DAILY RF: 0 naloxone 4 mg/actuation [place],Non-Aerosol See Rx Instructions .ROUTE .COMPLEX RF: 0 atorvastatin 20 mg Tablet 20 mg PO DAILY RF: 0 albuterol sulfate 90 mcg/actuation Hfa Aerosol Inhaler 1 puff INHALATION QID PRN (Reason: Shortness Of Breath) RF: 0 budesonide-formoterol [Symbicort] 160-4.5 mcg/actuation Hfa Aerosol Inhaler 2 puff INHALATION BID RF: 0 gabapentin 300 mg capsule 300 mg PO BID RF: 0 lorazepam 1 mg tablet 0.5 - 1 mg PO Q8H PRN (Reason: Anxiety) RF: 0 metoprolol tartrate 25 mg tablet 12.5 mg PO BID RF: 0 Probable Cause of Probable cause of : Cardiac arrest DS Attestations Time Spent in /Discharge Care*: greater than 30 min Quality - AMI: AMI present?: No Quality - Stroke: CVA present?: No Quality - VTE: VTE present?: Yes Coding Level of Care Code Acute Rehabilitation Inspector for [facility] Fwd Diagnoses Septic shock A41.9; R65.21 PREETHI (acute kidney injury) N17.9 Atrial fibrillation with rapid ventricular response I48.91 Metastatic lung cancer (metastasis from lung to other site) C34.90 Respiratory failure J96.90
== END 2021-07-04 12:58 | disposition expired | DRG 871 ==
LOC: ER 17:53 → ICU 22:26
PROVIDERS: Admitting Provider Student in an Organized Health Care Education/Training Program; Emergency Provider Emergency Medicine; Visit Provider Family Medicine
DX: A41.9 Sepsis, unspecified organism (principal); R65.21 Severe sepsis with septic shock; J18.9 Pneumonia, unspecified organism; I21.4 Non-ST elevation (NSTEMI) myocardial infarction; I26.99 Other pulmonary embolism without acute cor pulmonale; J96.01 Acute respiratory failure with hypoxia; J44.0 Chronic obstructive pulmonary disease with (acute) lower respiratory infection; C34.91 Malignant neoplasm of unspecified part of right bronchus or lung; C78.02 Secondary malignant neoplasm of left lung; G93.40 Encephalopathy, unspecified; K42.0 Umbilical hernia with obstruction, without gangrene; E87.2 Acidosis; N17.9 Acute kidney failure, unspecified; Z79.899 Other long term (current) drug therapy; F41.9 Anxiety disorder, unspecified; I25.10 Atherosclerotic heart disease of native coronary artery without angina pectoris; Z95.5 Presence of coronary angioplasty implant and graft; I10 Essential (primary) hypertension; G62.9 Polyneuropathy, unspecified; G47.33 Obstructive sleep apnea (adult) (pediatric); D69.6 Thrombocytopenia, unspecified; F17.210 Nicotine dependence, cigarettes, uncomplicated; Z95.828 Presence of other vascular implants and grafts; I95.9 Hypotension, unspecified; I48.91 Unspecified atrial fibrillation; E78.5 Hyperlipidemia, unspecified; E03.9 Hypothyroidism, unspecified; Z51.5 Encounter for palliative care; R57.0 Cardiogenic shock; Z99.81 Dependence on supplemental oxygen; Z92.3 Personal history of irradiation
CPT/HCPCS: 31500; 36415; 36556; 36600; 36620; 51702; 71045; 80051; 80053; 82330; 82803; 82805; 83605; 83880; 84145; 84484; 85007; 85025; 86140; 87040; 87426; 87635; 93005; 94002; 94640; 94660; 94799; 96365; 96366; 96367; 96368; 96372; 96375; 99291; 99292; A4570; J0171; J0692; J1650; J1720; J2060; J2250; J2270; J2370; J2405; J2543; J3010; J3370; J3490; J7030; J7040; J7050